=== PATIENT | male | born 1985 | race Caucasian/White ===

== ENCOUNTER → 2018-08-26 10:25 | Outpatient (CLI) | payer OTHER, SELFPAY ==
[2015-09-07 11:29] VITALS: BMI 15.7
--- NOTE | 2018-08-26 10:35 | RAD_ITS ---
STUDY: X-RAY CHEST REASON FOR EXAM: Male, 33 years old. History of right lung infection. Prior surgery in the right hemithorax. TECHNIQUE: PA and lateral views of the chest. COMPARISON: Comparison is made with prior examination dated August 08, 2017. FINDINGS: Stable pleural parenchymal changes in the right hemithorax with evidence of a small right pleural effusion with underlying infiltration and/or atelectasis. Surgical sutures are seen within the right midlung. Stable deformity of the right third rib. The left lung is clear. Normal size heart. Normal mediastinum and alice. Normal visualized pulmonary arteries. Normal visualized aortic arch and descending thoracic aorta. Normal visualized thoracic spine. Normal visualized ribs, clavicles, and shoulders. There is no demonstrated abnormality of the visualized soft tissue structures of the upper abdomen. RAD/Chest PA and Lateral IMPRESSION: Stable pleural-parenchymal changes in the right hemithorax. Electronically Signed: Arnie Sol MD at 11:16 EST Tel [phone], Service support ,
== END ==
PROVIDERS: Family Provider Internal Medicine; PCP Internal Medicine; Referring Provider Nurse Practitioner; Visit Provider Nurse Practitioner
DX: R94.2 Abnormal results of pulmonary function studies (principal)
CPT/HCPCS: 71046

== ENCOUNTER → 2018-09-16 07:46 | Outpatient (CLI) | payer OTHER, SELFPAY ==
--- NOTE | 2018-09-16 16:11 | SPIR ---
Spirometry PFT Testing Spirometry PFT Testing: COMPLETE PULMONARY FUNCTION TEST INTERPRETATION Brief HPI: Patient is a 33 year old male, currently under the care of Tracy Bean, who presents to [facility] for complete pulmonary function tests secondary to diagnosis of history of empyema. Respiratory therapist reports good effort and reproducible results. Interpretation: Forced expiration spirometry shows a severe large airways obstructive ventilatory defect with an FEV1 of 50% predicted. There is no significant bronchodilator response by strict ATS criteria. Spirograms are of good quality and plateau slowly, indicating slowly emptying areas of the lungs. The respiratory flow volume loop shows decreased expiratory flow rates at high lung volumes consistent with small airways obstruction. Compared to previous pulmonary function tests from 04/15/2012, there has been a significant reduction in FVC and FEV1 by 26% and 47% respectively. Impression: Restriction cannot be excluded. Consider repeat testing with lung volumes. Severe obstructive ventilatory defect noted, but improvement did not reach clinical significance by ATS criteria.
--- OUTSIDE RECORDS SUMMARY | 2018-11-02 05:46 | XMS RPT_ITS | Continuity of Care Document ---
:1985 Author Organization [facility] Address [address] [place] [address] Phone Care Team Providers Name Role Phone Jacqueline Ramirez DO Unavailable [place] HOME CARE SPECIALIST, Tracy Ward Unavailable Yarelis Rao Unavailable Unavailable McJOHANNA Unavailable Unavailable Slarb COLLAR CUTTER, Yaima Unavailable Unavailable Long COLLAR CUTTER, Erum L Unavailable Unavailable Unavailable Unavailable Problems Name Dates Details Abnormal chest xray (R93.89, 793.2) Comments: chest xray reveal complete opacificataion of right hemithorax suggestive of pleural effusion, coarse and increased markings in right upper lobe with areas of confluence, TB should be ruled out Status: Active 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 meds working well. his manager etl comment that notice difference in work performance for the good. ntoice more focus on one thing and nto scattered. 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 will treat wtih stimulant may be cause of his mood disorfder once doign well on ADD med may wa nt to try comign off. only a year. talk about side effects watch for irritatbility anget upset. stimlant side effects in beginning weight loss Status: Active BMI 22.0-22.9, adult (Z68.22, V85.1) Status: Active BMI between 19-24,adult (V85.1) Status: Active Cough (R05, 786.2) Status: Active Current nonsmoker (Renamed from Current non-smoker) (Z78.9, V49.89) Status: Active Depression, recurrent (F33.9, 296.30) Comments: stable on celexa Status: Active Encounter for screening for lipid disorder (Z13.220, V77.91) Status: Active History of empyema of pleura (Z87.09, V12.69) Comments: Had chest tube on rt side, affected lung and rib, hospitalized Summ2014 Status: Active History of lung abscess (Z87.09, V12.69) Comments: will xray today, had 27 days of ceftriaxone a year ago, will treat agressively today, check chest, return 2 weeks and consider pneumonia shot at that time per ID recommendationWith S Intermedius, strep veridans Rt lower lung with thoracic surgery by [facility] Dr. 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 Jackson in [facility]. Status: Active Vitamin D deficiency (E55.9, 268.9) Status: Active Medications Name Dates Details Adderall XR 20 MG Oral Capsule Extended Release 24 Hour 1 (one) Capsule bid for 0 days Quantity: 60 {Capsule} Refills: 0 Ordered:12-Aug-2018 Rashmi Boykin MD Start : 12-Aug-2018 Active Comments:sixty DX: R41.840 CeleXA 20 MG Oral Tablet 1 (one) Tablet qhs for 0 days Quantity: 30 {Tablet} Refills: 6 Ordered:27-Mar-2018 Tara Ramirez DO, DO, Kathleen Start : 27-Mar-2018 Active ZyrTEC Allergy 10 MG Oral Tablet 1 (one) Tablet Tablet daily for 0 days Quantity: 30 {Tablet} Refills: 0 Ordered:14-Jul-2018 Yarelis Rao Start : 11-Jul-2018 Active Adderall XR 15 MG Oral Capsule Extended Release 24 Hour 1 (one) Capsule in am and around 3 pm for 0 days Quantity: 60 {Capsule} Refills: 0 Ordered:22-Jul-2018 Rashmi Boykin MD Start : 22-Jul-2018 End : 22-Jul-2018 Inactive Comments:sixtyincreased to 20mg bid Bromfed DM 30-2-10 MG/5ML Oral Syrup 10 Milliliter Milliliter [id number] cough for 0 days Quantity: 120 {Milliliter} Refills: 0 Ordered:08-Aug-2017 Doris Braxton LPN Start : 21-Sep-2016 End : 08-Aug-2017 Inactive Cefdinir 300 MG Oral Capsule 1 (one) Capsule Capsule q12 for 10 days Quantity: 20 {Capsule} Refills: 0 Ordered:21-Sep-2016 Tracy Bean CNP Start : 21-Sep-2016 End : 01-Oct-2016 Inactive Deplin 15 15-90.314 MG Oral Capsule 1 (one) Capsule qd for 0 days Quantity: 90 {Capsule} Refills: 0 Ordered:21-Sep-2016 Yarelis Rao Start : 06-Jul-2016 End : 21-Sep-2016 Inactive Deplin 15 15-90.314 MG Oral Capsule 1 (one) Capsule qd for 0 days Quantity: 90 {Capsule} Refills: 0 Ordered:21-Sep-2016 Yarelis Rao Start : 06-Jul-2016 End : 21-Sep-2016 Inactive Doxycycline Hyclate 100 MG Oral Capsule 1 (one) Capsule bid for 7 days Quantity: 14 {Capsule} Refills: 0 Ordered:25-Sep-2016 Tracy Bean CNP Start : 25-Sep-2016 End : 02-Oct-2016 Inactive LEVAQUIN, 500MG (Oral Tablet) 1 (one) Tablet daily for 0 days Quantity: 10 {Tablet} Refills: 0 Ordered:07-Sep-2015 JOHANNA Bentley Start : 25-Aug-2015 End : 07-Sep-2015 Inactive Nasonex 50 MCG/ACT Nasal Suspension 1 (one) Suspension Suspension qd for 0 days Quantity: 1 {Container} Refills: 0 Ordered:06-Jul-2016 Doris Braxton LPN Start : 12-Apr-2016 End : 06-Jul-2016 Inactive No Known Historical Medications Percocet 5-325 MG Oral Tablet 1-2 tabs tablet q 6hrs, prn for 30 days Quantity: 60 {Tablet} Refills: 0 Ordered:12-Apr-2016 Doris Braxton LPN Start : 26-Sep-2015 End : 12-Apr-2016 Inactive PREDNISONE, 10MG (Oral Tablet) 2 pills for 4 days Tablet Tablet then 1 pill for 4 days with food in am for 0 days Quantity: 12 {QS} Refills: 0 Ordered:07-Sep-2015 JOHANNA Bentley Start : 15-Apr-2015 End : 07-Sep-2015 Inactive Comments:with food ProAir HFA 108 (90 Base) MCG/ACT Inhalation Aerosol Solution 2 (two) Aerosol Soln tid prn for 0 days Quantity: 1 {Inhaler} Refills: 0 Ordered:12-Apr-2016 Doris Braxton LPN Start : 25-Aug-2015 End : 12-Apr-2016 Inactive ZITHROMAX Z-MELANY, 250MG (Oral Tablet) 1 Tablet Tablet TAD for 0 days Quantity: 1 {Package} Refills: 0 Ordered:07-Sep-2015 JOHANNA Bentley Start : 15-Apr-2015 End : 07-Sep-2015 Inactive ADVAIR DISKUS, 250-50MCG/DOSE (Inhalation Aerosol Powder Breath Activated) 1 Aero Pow Br Act puff bid then rinse out mouth for 0 days Quantity: 1 {Aero_Pow_Br_Act} Refills: 1 Ordered:15-Apr-2015 Leatha Fernandez LPN Start : 26-Feb-2012 End : 15-Apr-2015 Discontinued PredniSONE 10 MG (21) Oral Tablet Therapy Pack 1 (one) Tab Ther Pack 1 bid x 3 days, then 1 daily x 3 days, then 1/2 x 3 days for 0 days Quantity: 11 {Tablet} Refills: 0 Ordered:05-Oct-2016 Yaima Felton LPN Start : 25-Sep-2016 End : 05-Oct-2016 Discontinued Dispense as Written Comments:with food Allergies and Adverse Reactions Name Dates Details No Known Allergies (Allergy) Onset: 21-Sep-2016 Status: Active No Known Drug Allergies (Allergy) Onset: 28-Jan-2012 Status: Active Past Medical History Name Dates Details Asthma, intrinsic, with status asthmaticus (J45.902, 493.11) Status: Inactive as of 12-Apr-2016 Bronchitis (J40, 490) Status: Inactive as of 03-Oct-2015 Cerumen impaction (H61.20, 380.4) Status: Resolved as of 12-Feb-2012 Ceruminosis, bilateral (Renamed from Excessive cerumen in both ear canals) (H61.23, 380.4) Status: Inactive as of 03-Oct-2015 Cough (R05, 786.2) Comments: with history of Rt lung abcess with strep viridans 27 to days of IV Status: Inactive as of 08-Aug-2017 Cough (R05, 786.2) Comments: 30-year-old male with no past medical history presents with cough and sputum production for 1 month.Chest x-ray reveals complete opacification of the right hemithorax suggestive pleural effusion with un derlying pneumonic infiltration ? TB versus pneumonia.Spoke to 'glory Hargrove signs and she recommends sending the patient to the emergency room for evaluation and treatment of TB.Patient will get AFB sme ar and cultures and will be started on empiric treatment for TB at the hospital.Spoke to the ED and updated them. Status: Inactive as of 03-Oct-2015 Cough (R05, 786.2) Status: Resolved as of 31-May-2016 Hearing loss due to cerumen impaction, bilateral (H61.23, 389.8) Status: Inactive as of 08-Aug-2017 Pneumonia (J18.9, 486) Comments: seen on chest xray, as well as effusion resolving now, treated with cefdinir and then doxycycline, and steroid, will monitor pt agressively Status: Inactive as of 08-Aug-2017 Wheezing (R06.2, 786.07) Status: Inactive as of 03-Oct-2015 Procedures Date Value Details 08-Aug-2017 Chest PA and Lateral Result: Comments: See Note; NOTES: [facility] Imaging Services [address] [place] [address] Chest PA and Lateral MR#: [id number] Acct: [id number] Name: BROOKE PENN Rep #: [id number] : 1985 M 32 From: Nazario Cardona DO PCP: Jacqueline Ramirez DO Status: REG CLI Study: Chest PA and Lateral Date of Exam: 08/08/17 Exam# [id number] Ordering Dr: Jacqueline Ramirez DO STUDY: X-RAY CHEST REASON FOR EXAM: Male, 32 years old. Cough TECHNIQUE: Frontal and lateral views COMPARISON: October 22, 2016 FINDINGS: The lungs are not fully expanded. Postsurgi johnny changes in the right lung base. Stable right lung volume loss. There is persistent pleural thickening/effusion in the right lung base. Normal size heart. Normal mediastinum and alice. Normal visuali zed pulmonary arteries. Normal visualized aortic arch and descending thoracic aorta. Normal visualized thoracic spine. Normal visualized ribs, clavicles, and shoulders. There is no demonstrated abnorm ality of the visualized soft tissue structures of the upper abdomen. RAD/Chest PA and Lateral IMPRESSION: This is stable right base effusion/pleu ral thickening Electronically Signed: Nazario Cardona DO at 18:10 EDT Tel [phone], Service support , CC: Jacqueline Ramirez DO Geology Professor: Signed 22-Oct-2016 Chest PA and Lateral Result: Comments: See Note; NOTES: [facility] Imaging Services [address] [place] [address] [place] [address] Chest PA and Lateral MR#: [id number] Acct: [id number] Name: BROOKE PENN Rep #: [id number] : 1985 M 31 From: Arnie Sol MD PCP: Jacqueline Ramirez DO Status: REG CLI Study: Chest PA and Lateral Date of Exam: 10/22/16 Exam# [id number] Ordering Dr: Tracy Bean STUDY: X-RAY CHEST REASON FOR EXAM: Male, 31 years old. History of pneumonia. TECHNIQUE: PA and lateral views of the chest. COMPARISON: Comparison is made with prior study dated September 21, 2016. FINDINGS: Pectus excavatum deformity. Stable pleural parenchymal changes at the right lung base. There is evidence of a surgical intervention in the right lower lobe. Josefina l size heart. Normal mediastinum and alice. Normal visualized pulmonary arteries. Normal visualized aortic arch and descending thoracic aorta. Normal visualized thoracic spine. Once again, there is evid ence of deformity of the right second third and fourth ribs anteriorly most likely secondary to prior surgery. There is no demonstrated abnormality of the visualized soft tissue structures of the upper abdomen. RAD/Chest PA and Lateral IMPRESSION: Stable pleural parenchymal changes at the right lung base. Postoperative changes. The left lung is clear. Electronically Signed: Arnie Sol MD at 12:17 EST Tel [phone], Service support [phone], CC: Tracy Bean; Jacqueline Ramirez DO Geology Professor: Signed 21-Sep-2016 Chest PA and Lateral Result: Comments: See Note; NOTES: [facility] Imaging Services [address] [place] [address] [place] 4d Chest PA and Lateral MR#: [id number] Acct: [id number] Name: BROOKE PENN Ace Rep #: [id number] : 1985 M 31 From: Arnie Sol MD PCP: Jacqueline Ramirez DO Status: REG CLI Study: Chest PA and Lateral Date of Exam: 09/21/16 Exam# [id number] Ordering Dr: Tracy Bean STUDY: X-RAY CHEST REASON FOR EXAM: Male, 31 years old. The patient has a history of right lung abscess. TECHNIQUE: PA and lateral views of the chest. COMPARISON: Comparison is made with prior study dated 2014. FINDINGS: The previously seen right pleural effusion and infiltration in the right hemithorax has markedly improved. There now is evidence of a sma ll right pleural effusion with underlying right basilar infiltration. The left upper lobe is now clear. The left lung is clear. Normal size heart. Normal mediastinum and alice. Normal visualized pulmona ry arteries. Normal visualized aortic arch and descending thoracic aorta. Normal visualized thoracic spine. Normal visualized ribs, clavicles, and shoulders. There is no demonstrated abnormality of th e visualized soft tissue structures of the upper abdomen. RAD/Chest PA and Lateral IMPRESSION: Small residual right pleural effusion with underly ing infiltration. The left lung and right upper lobe are unremarkable. Electronically Signed: Arnie Sol MD at 9:36 EST Tel [phone], Service support [phone], Fax CC: Tracy Bean; Jacqueline Ramirez DO Geology Professor: Signed 12-Apr-2016 Spirometry (33832) Comments: roxann Result: 07-Sep-2015 Emergency Department Summary Result: Comments: See Note; NOTES: [facility] Medical Records Department [address] [place] [address] Emergency Department Summary MR#: [id number] Acct: [id number] Name: BROOKE PENN Ace Rep #: [id number] : 1985 30 From: Edgardo Arrington MD PCP: Rashmi Boykin MD Status: DEP ER DATE OF SERVICE: 09/07/2015 CHIEF COMPLAINT: Cough, shortness of breath, night swea ts. HISTORY OF PRESENT ILLNESS: This is a 30-year-old gentleman with no significant past medical or surgical history who states for 1 month, he has not been feeling well. He saw his primary care riley macdonald about 2 weeks ago. He was treated with a course of Levaquin and got no better. Today, he was worse, went in to saw his primary care physician's office, was seen by Dr. Carlson, they obtained a est x-ray. He basically had a whiteout on his right chest. They send him in the ER for further evaluation for possible TB or other etiologies. PHYSICAL EXAMINATION: GENERAL: A 30-year-old gentleman. VITAL SIGNS: Stable. His sat is only 93% on room air. He is not truly hypoxic, but it is a relative hypoxia for young man that is a nonsmoker. Otherwise, he is afebrile. Temperature ____. He is in n o distress. HEENT: Unremarkable. NECK: Nontender. No JVD. LUNGS: Greatly diminished on the right and normal on the left. HEART: Tachycardic. No murmur. ABDOMEN: Soft, nontender, nondistended, no or ganomegaly or masses. EXTREMITIES: He moves all 4. Calves nontender, no edema, no cords. CHEST: His right chest wall is nontender. He has an abnormal chest wall with bony structure. He tells me that has been there since he was a small child. It is nontender. It is not red. There is no abscess. NEUROLOGICAL: He is awake and alert. No focal motor or sensory deficits. EMERGENCY DEPARTMENT COURSE: A 30-year-old gentleman with dyspnea, whiteout on chest x-ray done earlier today. Currently, a CBC, chemistry is pending. I did send blood cultures x2 and sputum cultures including TB cultures. His C AT scan of his chest showed a large right pleural cavity base cystic mass with chronic changes, 3rd and 4th ribs versus obstruction of the 3rd and 4th ribs and the radiologist has had rule out TB vers us other fungal etiologies versus other etiologies. IMPRESSION: 1. Large right lung, cystic mass of uncertain etiology. 2. Rule out tuberculosis. PLAN: I gave the patient options. I initially ca lled [facility] per his choice. They currently are out of beds, so I will talk to [facility] about a transfer. He was initially started on Rocephin and Zithromax. Labs and cultures are pending. MD Octavia Pina C: Rashmi Boykin MD T: NTS JOB: [id number] 09/07/15 4152 <Electronically signed by Edgardo Arrington MD> Date [facility] Signature (If Indicated): Date CC: Rashmi Boykin MD Date Dictated: 09/07/15 1352 D ate Transcribed: 09/07/152 Geology Professor: Signed 07-Sep-2015 Chest WITH Contrast Result: Comments: See Note; NOTES: [facility] Imaging Services [address] [place] [address] [address]d Chest WITH Contrast MR#: [id number] Acct: [id number] Name: DAVID PENN Rep #: [id number] : 1985 30 From: Arnie Sol MD PCP: Rashmi Boykin MD Status: REG ER Study: Chest WITH Contrast Date of Exam: 09/07/15 Exam# [id number] Ordering Dr: Jose Arrington MD STUDY: CT CHEST WITH CONTRAST REASON FOR EXAM: Male, 30 years old. Opacification of the right hemithorax. RADIATION DOSAGE (If Supplied By Facility): CTDIvol = ( 15.13 ) mGy, DLP = ( 686.90 ) mGycm TECHNIQUE: Transaxial imaging was performed following intravenous administration of 75ML ml of Isovue 300 contrast material. Multiplanar coronal and sagittal images were reformatted. COMPARISON: Comparison is made with prior chest radiograph done earlier in the day. FINDINGS: There is evidence of inhomogeneous infiltration in the right upp er lobe worse along the peripheral aspect with cystic spaces within it. There is evidence of a 13.1 cm x 14.4 cm x 20.8 cm fluid collection in the right lung in its mid and inferior portion. The rim is seen around this fluid collection. There is a tiny right pleural effusion. The fluid within as a higher attenuation coefficient and this is suggestive of infected fluid. There is shift of the hear t and mediastinal structures towards the left side of the midline. Mild degree of increased markings are also seen in the posterior aspect of the left upper lobe. Normal heart and pericardium. Nor mal mediastinum. Normal hilar regions. Normal enhanced pulmonary arteries. Normal aorta arch and descending thoracic aorta. There is destruction of the anterior aspect of the right third and fourth ribs. There is also evidence of a pectus excavatum deformity. A chronic process such as TB or fungal infection should be ruled out. Is also evidence of a 3 cm x 3 cm soft tissue density with bony dest ruction along the anterior chest wall in its midportion. There is evidence of thickening of the right pectoralis muscle. There is no demonstrated abnormality of the visualized upper abdomen. IMPRESSION: Large cystic mass in the right lung as described with inhomogeneous infiltration in the right upper lobe with destruction of the anterior aspect of the rig ht third and fourth ribs. An infectious process such as tuberculosis or a fungal infection should be ruled out. There is shift of the heart and mediastinal structures towards the left side of the mi dline. Electronically Signed: Arnie Sol MD at 13:25 EST Tel [phone], Service support [phone], CC: Rashmi Boykin MD; Edgardo Arrington MD Geology Professor: Signed 07-Sep-2015 Chest PA and Lateral Result: Comments: See Note; NOTES: [facility] Imaging Services [address] [place] [address] 4d Chest PA and Lateral MR#: [id number] Acct: [id number] Name: Milagros PENNLaurie R Rep #: [id number] : 1985 M 30 From: Arnie Sol MD PCP: Rashmi Boykin MD Status: REG CLI Study: Chest PA and Lateral Date of Exam: 09/07/15 Exam# [id number] Ordering Dr: Rashmi Boykin MD STUDY: X-RAY CHEST REASON FOR EXAM: Male, 30 years old. One-month history of cough and shortness of breath. TECHNIQUE: PA and lateral views of the chest. COMPARISON: None. FINDINGS: There is almost complete collapse of the right hemithorax with the coarse increased interstitial markings in the right upper lobe with areas of confluence. Fi ndings are suggestive of a large pleural effusion with underlying dense consolidation or mass lesion. Infectious process such as a pneumonic infiltration and possible tuberculosis should be ruled out. The left lung is clear. Normal size heart. Normal mediastinum and alice. Normal visualized pulmonary arteries. Normal visualized aortic arch and descending thoracic aorta. Normal visualized thora cic spine. Normal visualized ribs, clavicles, and shoulders. There is no demonstrated abnormality of the visualized soft tissue structures of the upper abdomen. IMPRESSION: There is almost complete opacification of the right hemithorax suggestive of a pleural effusion with underlying pneumonic infiltration. Coarse and increased markings in the right upper lobe with areas of confluence. Tuberculosis should be ruled out. Electronically Signed: Arnie Sol MD at 9:24 EST Tel [phone], Service support [phone], RAD/Chest PA and Lateral IMPRESSION: There is almost complete opacification of the right hemithorax suggestive of a pleural effusion with underlying pneumonic infiltration. Co arse and increased markings in the right upper lobe with areas of confluence. Tuberculosis should be ruled out. Electronically Signed: Arnie Sol MD at 9:24 EST Tel [phone] , Service support [phone], CC: Rashmi Boykin MD Geology Professor: Signed 25-Aug-2015 Spirometry (97976) Result: 25-Aug-2015 Spirometry (12510) Comments: see scanned document of test done to see results reviewed today with patient pt not able to coordinate Result: [Preliminary Information] Sensor Calibration Date: 01/24/2015; Sensor SN: [id number]; Pressure: 760; Temperature: 21.9625952281023 [Pre-Bronchodilator] FVC: 1.63735358395873; FEV (0.5 secs): 0.7262395367 76201; FEV (1.0 sec): 0.294847890540125; FEV (3.0 secs): 1.62398572306412; FEV (6.0 secs): 0; FEV (1.0 sec) / FVC: 68.3327822793160; FEV (3.0 secs) / FVC: 99.6680415151888; FEV (1.0 sec) / FEV (6.0 secs ): 0; FEF (25-75%): 0; FEF (75-85%): 0.27785407717911; PEF: 1.69995419843930; FEF (25%): 0; FEF (75%): 0.187577069438292; FEF (200-1200): 0; EXP TIME: 3.69999347226980; Best FVC: 1.7943548802639; Best F EV (1.0 sec): 0.676339074256979; V ext.: -0.522446103446616; FIVC: 0.161957537061846; FIV (0.5 sec): 0.031333505429664; FEV (0.5 secs) / FIV (0.5 secs): 77.5208440883332; FIF (50%): 2.4082343872080; FEF (50%) / FIF (50%): 26.8336294112855; MVV: 0; MTV: 0; RR: 0; MVV Time: 0; VC: 0; ERV: 0; ROXANA: 0; TV: 0; AT: 0; AT%: 0 [Post-Bronchodilator] FVC: 0; FEV (0.5 secs): 0; FEV (1.0 sec): 0; FEV (3.0 secs): 0 ; FEV (6.0 secs): 0; FEV (1.0 sec) / FVC: 0; FEV (3.0 secs) / FVC: 0; FEV (1.0 sec) / FEV (6.0 secs): 0; FEF (25-75%): 0; FEF (75-85%): 0; PEF: 0; FEF (25%): 0; FEF (75%): 0; FEF (200-1200): 0; EXP TIME : 0; Best FVC: 0; Best FEV (1.0 sec): 0; V ext.: 0; FIVC: 0; FIV (0.5 sec): 0; FEV (0.5 secs) / FIV (0.5 secs): 0; FIF (50%): 0; FEF (50%) / FIF (50%): 0; MVV: 0; MTV: 0; RR: 0; MVV Time: 0; VC: 0; ERV: 0; ROXANA: 0; TV: 0; AT: 0; AT%: 0 [Predicted Values] FVC: 0; FEV (0.5 secs): 0; FEV (1.0 sec): 0; FEV (3.0 secs): 0; FEV (6.0 secs): 0; FEV (1.0 sec) / FVC: 0; FEV (3.0 secs) / FVC: 0; FEV (1.0 sec) / FE V (6.0 secs): 0; FEF (25-75%): 0; FEF (75-85%): 0; PEF: 0; FEF (25%): 0; FEF (75%): 0; FEF (200-1200): 0; EXP TIME: 0; Best FVC: 0; Best FEV (1.0 sec): 0; V ext.: 0; FIVC: 0; FIV (0.5 sec): 0; FEV (0.5 secs) / FIV (0.5 secs): 0; FIF (50%): 0; FEF (50%) / FIF (50%): 0; MVV: 0; MTV: 0; RR: 0; MVV Time: 0; VC: 0; ERV: 0; ROXANA: 0; TV: 0; AT: 0; AT%: 0 [Spirometry Diagnostic Statements] Date of Test: 2014 07:36:00; Summary: Unable to perform automatic interpretation because: Predicted FEV1/FVC is not available or valid. Social History Name Dates Details No Caffeine Use Status: Active No Drug Use Status: Active Non Drinker/No Alcohol Use Status: Active Non Smoker/No Tobacco Use Status: Active Tobacco Use: Never smoker. Status: Active Smoking Status Name Dates Details Never smoker Vital Signs Date Test Result Details :36 Pulse 89 /min Comments: Pattern: Regular Respiration Rate 16 /min Comments: Pattern: Unlabored O2 SAT 98 % Comments: Room air BP Systolic 122 mm[Hg] Comments: Patient Position: Sitting; Cuff Location: Left Arm; Cuff Size: Standard BP Diastolic 78 mm[Hg] Comments: Patient Position: Sitting; Cuff Location: Left Arm; Cuff Size: Standard Weight 169 lb Height 73 in Body Mass Index Calculated 22.3 kg/m2 Body Surface Area Calculated 2 m2 [id number] Temperature 98.8 f Comments: Method: Temporal Pulse 74 /min Comments: Pattern: Regular Respiration Rate 16 /min Comments: Pattern: Unlabored O2 SAT 98 % Comments: Room air BP Systolic 112 mm[Hg] Comments: Patient Position: Sitting; Cuff Location: Left Arm; Cuff Size: Standard BP Diastolic 70 mm[Hg] Comments: Patient Position: Sitting; Cuff Location: Left Arm; Cuff Size: Standard Weight 171.5 lb Height 73 in Body Mass Index Calculated 22.63 kg/m2 Body Surface Area Calculated 2.02 m2 :51 Temperature 98.4 f Comments: Method: Temporal Pulse 74 /min Comments: Pattern: Regular Respiration Rate 16 /min Comments: Pattern: Unlabored O2 SAT 98 % Comments: Room air BP Systolic 118 mm[Hg] Comments: Patient Position: Sitting; Cuff Location: Left Arm; Cuff Size: Standard BP Diastolic 74 mm[Hg] Comments: Patient Position: Sitting; Cuff Location: Left Arm; Cuff Size: Standard Weight 171.5 lb Height 73 in Body Mass Index Calculated 22.63 kg/m2 Body Surface Area Calculated 2.02 m2 :56 Temperature 97 f Comments: Method: Temporal Pulse 86 /min Comments: Pattern: Regular Respiration Rate 16 /min Comments: Pattern: Unlabored O2 SAT 99 % Comments: Room air BP Systolic 128 mm[Hg] Comments: Patient Position: Sitting; Cuff Location: Left Arm; Cuff Size: Large BP Diastolic 86 mm[Hg] Comments: Patient Position: Sitting; Cuff Location: Left Arm; Cuff Size: Large Weight 184.5 lb Height 73 in Body Mass Index Calculated 24.34 kg/m2 Body Surface Area Calculated 2.08 m2 :52 Temperature 97.9 f Pulse 76 /min Comments: Pattern: Regular Respiration Rate 16 /min Comments: Pattern: Unlabored O2 SAT 97 % Comments: Room air BP Systolic 118 mm[Hg] Comments: Patient Position: Sitting; Cuff Location: Left Arm; Cuff Size: Standard BP Diastolic 74 mm[Hg] Comments: Patient Position: Sitting; Cuff Location: Left Arm; Cuff Size: Standard Weight 171 lb Height 73 in Body Mass Index Calculated 22.56 kg/m2 Body Surface Area Calculated 2.01 m2 :38 Temperature 98.1 f Pulse 72 /min Comments: Pattern: Regular Respiration Rate 17 /min Comments: Pattern: Unlabored O2 SAT 98 % Comments: Room air BP Systolic 122 mm[Hg] Comments: Patient Position: Sitting; Cuff Location: Left Arm; Cuff Size: Standard BP Diastolic 80 mm[Hg] Comments: Patient Position: Sitting; Cuff Location: Left Arm; Cuff Size: Standard Weight 171 lb Height 73 in Body Mass Index Calculated 22.56 kg/m2 Body Surface Area Calculated 2.01 m2 :47 Temperature 98.6 f Comments: Method: Temporal Pulse 75 /min Comments: Pattern: Regular Respiration Rate 16 /min Comments: Pattern: Unlabored O2 SAT 98 % Comments: Room air BP Systolic 120 mm[Hg] Comments: Patient Position: Sitting; Cuff Location: Left Arm; Cuff Size: Standard BP Diastolic 70 mm[Hg] Comments: Patient Position: Sitting; Cuff Location: Left Arm; Cuff Size: Standard Weight 169 lb Height 73 in Body Mass Index Calculated 22.3 kg/m2 Body Surface Area Calculated 2 m2 :15 Pulse 72 /min Comments: Pattern: Regular Respiration Rate 18 /min Comments: Pattern: Unlabored O2 SAT 98 % Comments: Room air BP Systolic 122 mm[Hg] Comments: Patient Position: Sitting; Cuff Location: Left Arm; Cuff Size: Standard BP Diastolic 64 mm[Hg] Comments: Patient Position: Sitting; Cuff Location: Left Arm; Cuff Size: Standard Weight 169 lb Height 73 in Body Mass Index Calculated 22.3 kg/m2 Body Surface Area Calculated 2 m2 :05 Pulse 76 /min Comments: Pattern: Regular Respiration Rate 18 /min Comments: Pattern: Unlabored O2 SAT 98 % Comments: Room air BP Systolic 116 mm[Hg] Comments: Patient Position: Sitting; Cuff Location: Left Arm; Cuff Size: Standard BP Diastolic 62 mm[Hg] Comments: Patient Position: Sitting; Cuff Location: Left Arm; Cuff Size: Standard Weight 164.5 lb Height 73 in Body Mass Index Calculated 21.7 kg/m2 Body Surface Area Calculated 1.98 m2 :07 Temperature 98.1 f Comments: Method: Temporal Pulse 77 /min Comments: Pattern: Regular Respiration Rate 18 /min Comments: Pattern: Unlabored O2 SAT 98 % Comments: Room air BP Systolic 122 mm[Hg] Comments: Patient Position: Sitting; Cuff Location: Left Arm; Cuff Size: Large BP Diastolic 80 mm[Hg] Comments: Patient Position: Sitting; Cuff Location: Left Arm; Cuff Size: Large Weight 155 lb Height 73 in Body Mass Index Calculated 20.45 kg/m2 Body Surface Area Calculated 1.93 m2 :02 Temperature 97.8 f Comments: Method: Temporal Pulse 88 /min Comments: Pattern: Regular Respiration Rate 18 /min Comments: Pattern: Unlabored O2 SAT 98 % Comments: Room air BP Systolic 100 mm[Hg] Comments: Patient Position: Sitting; Cuff Location: Left Arm; Cuff Size: Standard BP Diastolic 74 mm[Hg] Comments: Patient Position: Sitting; Cuff Location: Left Arm; Cuff Size: Standard Weight 155 lb Height 73 in Body Mass Index Calculated 20.45 kg/m2 Body Surface Area Calculated 1.93 m2 :40 Temperature 97.6 f Comments: Method: Temporal Pulse 118 /min Comments: Pattern: Regular Respiration Rate 26 /min Comments: Pattern: Labored O2 SAT 96 % Comments: Room air BP Systolic 114 mm[Hg] Comments: Patient Position: Sitting; Cuff Location: Left Arm; Cuff Size: Standard BP Diastolic 74 mm[Hg] Comments: Patient Position: Sitting; Cuff Location: Left Arm; Cuff Size: Standard Weight 155 lb Height 73 in Body Mass Index Calculated 20.45 kg/m2 Body Surface Area Calculated 1.93 m2 :26 Temperature 99.2 f Comments: Method: Temporal Pulse 142 /min Comments: Pattern: Regular Respiration Rate 18 /min Comments: Pattern: Unlabored O2 SAT 95 % Comments: Room air BP Systolic 116 mm[Hg] Comments: Patient Position: Sitting; Cuff Location: Left Arm; Cuff Size: Standard BP Diastolic 74 mm[Hg] Comments: Patient Position: Sitting; Cuff Location: Left Arm; Cuff Size: Standard Weight 155 lb Height 73 in Body Mass Index Calculated 20.45 kg/m2 Body Surface Area Calculated 1.93 m2 :19 Temperature 98.6 f Comments: Method: Oral Pulse 94 /min Comments: Pattern: Regular Respiration Rate 16 /min O2 SAT 98 % Comments: Room air BP Systolic 112 mm[Hg] Comments: Patient Position: Sitting; Cuff Location: Left Arm; Cuff Size: Standard BP Diastolic 70 mm[Hg] Comments: Patient Position: Sitting; Cuff Location: Left Arm; Cuff Size: Standard Weight 155 lb Height 73 in Body Mass Index Calculated 20.45 kg/m2 Body Surface Area Calculated 1.93 m2 :34 Temperature 98.4 f Comments: Method: Oral Pulse 96 /min Comments: Pattern: Regular Respiration Rate 16 /min Comments: Pattern: Unlabored O2 SAT 98 % Comments: Room air BP Systolic 118 mm[Hg] Comments: Patient Position: Sitting; Cuff Location: Left Arm; Cuff Size: Standard BP Diastolic 64 mm[Hg] Comments: Patient Position: Sitting; Cuff Location: Left Arm; Cuff Size: Standard Weight 155 lb Height 73 in Body Mass Index Calculated 20.45 kg/m2 Body Surface Area Calculated 1.93 m2 :38 Temperature 97.1 f Pulse 96 /min Comments: Pattern: Regular Respiration Rate 16 /min Comments: Pattern: Unlabored O2 SAT 98 % Comments: Room air BP Systolic 110 mm[Hg] Comments: Patient Position: Sitting; Cuff Location: Left Arm; Cuff Size: Standard BP Diastolic 82 mm[Hg] Comments: Patient Position: Sitting; Cuff Location: Left Arm; Cuff Size: Standard Weight 151 lb Height 73 in Body Mass Index Calculated 19.92 kg/m2 Body Surface Area Calculated 1.91 m2 :33 Temperature 97.9 f Comments: Method: Oral Pulse 99 /min Comments: Pattern: Regular Respiration Rate 18 /min O2 SAT 100 % Comments: Room air BP Systolic 130 mm[Hg] Comments: Patient Position: Sitting; Cuff Location: Left Arm; Cuff Size: Standard BP Diastolic 80 mm[Hg] Comments: Patient Position: Sitting; Cuff Location: Left Arm; Cuff Size: Standard Weight 151.4375 lb Height 73 in Body Mass Index Calculated 19.98 kg/m2 Body Surface Area Calculated 1.91 m2 Results Date Description Value Details :34 CBC, Platelets & Auto Diff Comments: PATIENT NOT FASTINGPERFORMED BY: [facility] [id number] ([id number]) Immature Grans (Abs) 0.0 {x10E3/uL} (Normal) Range: 0.0-0.1 Immature Granulocytes 0 % (Normal) Baso (Absolute) 0.0 {x10E3/uL} (Normal) Range: 0.0-0.2 Eos (Absolute) 0.1 {x10E3/uL} (Normal) Range: 0.0-0.4 Monocytes(Absolute) 0.5 {x10E3/uL} (Normal) Range: 0.1-0.9 Lymphs (Absolute) 1.5 {x10E3/uL} (Normal) Range: 0.7-3.1 Neutrophils (Absolute) 4.7 {x10E3/uL} (Normal) Range: 1.4-7.0 Basos 0 % (Normal) Eos 1 % (Normal) Monocytes 8 % (Normal) Lymphs 22 % (Normal) Neutrophils 69 % (Normal) Platelets 252 {x10E3/uL} (Normal) Range: 150-379 RDW 13.7 % (Normal) Range: 12.3-15.4 MCHC 34.3 g/dL (Normal) Range: 31.5-35.7 MCH 31.6 pg (Normal) Range: 26.6-33.0 MCV 92 fL (Normal) Range: 79-97 Hematocrit 44.0 % (Normal) Range: 37.5-51.0 Hemoglobin 15.1 g/dL (Normal) Range: 13.0-17.7 RBC 4.78 {x10E6/uL} (Normal) Range: 4.14-5.80 WBC 6.8 {x10E3/uL} (Normal) Range: 3.4-10.8 :34 CALCIFEDIOL ([id number]) Comments: PATIENT NOT FASTINGPERFORMED BY: [id number] [facility] [id number] Vitamin D, 25-Hydroxy 15.4 ng/mL (Abnormal) Range: 30.0-100.0 Comments: Vitamin D deficiency has been defined by the [employer] and an Endocrine Society practice guideline as alevel of serum 25-OH vitamin D less than 20 ng/mL (1,2).The Endocrine Society went on to further define vitamin Dinsufficiency as a level between 21 and 29 ng/mL (2).1. IOM ([employer]). 2010. Dietary reference intakes for calcium and D. [place]: The National Academies Press.2. Megan MF, Arsenio LOVETT, Remy LOVING, et al. Evaluation, treatment, and prevention of vitamin D deficiency: an Endocrine Society clinical practice guideline. JCEM. 2010; 96(7):1911-30. :34 VITAMIN B12 AND FOLATES Comments: PATIENT NOT FASTINGPERFORMED BY: [facility] [id number] [facility] [id number] ([id number]) Folate (Folic Acid), Serum 6.0 ng/mL (Normal) Comments: A serum folate concentration of less than 3.1 ng/mL isconsidered to represent clinical deficiency. Vitamin B12 444 pg/mL (Normal) Range: 232-1245 :34 Metabolic Panel, Comprehensive Comments: PATIENT NOT FASTINGPERFORMED BY: [facility] [id number] [facility] [id number] ([id number]) ALT (SGPT) 11 [iU]/L (Normal) Range: 0-44 AST (SGOT) 16 [iU]/L (Normal) Range: 0-40 Alkaline Phosphatase 54 [iU]/L (Normal) Range: 39-117 Bilirubin, Total 0.3 mg/dL (Normal) Range: 0.0-1.2 A/G Ratio 1.8 (Normal) Range: 1.2-2.2 Globulin, Total 2.5 g/dL (Normal) Range: 1.5-4.5 Albumin 4.4 g/dL (Normal) Range: 3.5-5.5 Protein, Total 6.9 g/dL (Normal) Range: 6.0-8.5 Calcium 9.7 mg/dL (Normal) Range: 8.7-10.2 Carbon Dioxide, Total 22 mmol/L (Normal) Range: 20-29 Chloride 105 mmol/L (Normal) Range: 96-106 Potassium 4.7 mmol/L (Normal) Range: 3.5-5.2 Sodium 143 mmol/L (Normal) Range: 134-144 BUN/Creatinine Ratio 25 (Abnormal) Range: 9-20 eGFR If Africn Am 133 mL/min/1.73 (Normal) eGFR If NonAfricn Am 115 mL/min/1.73 (Normal) Creatinine 0.89 mg/dL (Normal) Range: 0.76-1.27 BUN 22 mg/dL (Abnormal) Range: 6-20 Glucose 74 mg/dL (Normal) Range: 65-99 :34 TSH (THYROID STIMULATING Comments: PATIENT NOT FASTINGPERFORMED BY: [facility] [id number] HORMONE) ([id number]) TSH 2.580 {uIU/mL} (Normal) Range: 0.450-4.500 :10 LIPID PANEL (05295) Comments: PATIENT WAS FASTINGPERFORMED BY: [facility] [id number] LDL/HDL Ratio 2.2 {ratio_units} (Normal) Range: 0.0-3.6 Comments: LDL/HDL Ratio Men Women 1/2 Avg.Risk 1.0 1.5 Av g.Risk 3.6 3.2 2X Avg.Risk 6.2 5.0 3X Avg.Risk 8.0 6.1 LDL Cholesterol Calc 96 mg/dL (Normal) Range: 0-99 VLDL Cholesterol Johnny 14 mg/dL (Normal) Range: 5-40 HDL Cholesterol 43 mg/dL (Normal) Triglycerides 71 mg/dL (Normal) Range: 0-149 Cholesterol, Total 153 mg/dL (Normal) Range: 100-199 :38 TSH (55144) Comments: PATIENT NOT FASTINGPERFORMED BY: [facility] [id number] Information: [id number] TSH 2.480 {uIU/mL} (Normal) Range: 0.450-4.500 6-Azm-940382:23 AFB Stain AND Cytology Comments: [facility] [id number] [place], [address] ACID FAST STAIN SEE PATHOLOGY REPORT (Normal) Comments: Specimen submitted to Anatomical Pathology Department fortesting. CYTOLOGY,BF/CSF SEE PATHOLOGY REPORT (Normal) Comments: Specimen submitted to Anatomical Pathology Department fortesting. 9-Enp-031607:22 Basic Metabolic Profile (BMP) Comments: [facility] [address] [place], [address] GAP 7 (Normal) Range: 5-15 CO2 26.0 mmol/L (Normal) Range: 21.0-32.0 CL 102 mmol/L (Normal) Range: 98-107 K 3.7 mmol/L (Normal) Range: 3.5-5.1 NA 135 mmol/L (Abnormal) Range: 136-145 CA 8.7 mg/dL (Normal) Range: 8.5-10.1 BUN/CRE 20.1 {RATIO} (Abnormal) Range: 10-20 Estimated CRCL 182.28 ml/min (Normal) EST GFR - AA 207 mL/min (Normal) Comments: GFR Calc EST GFR 171 mL/min (Normal) Comments: Non- GFR Calc CREAT,SERUM 0.60 mg/dL (Abnormal) Range: 0.70-1.30 Comments: The validity of the calculated GFR AND GFRAA in patients over70 years has not been determined. Clinical correlation isessential. BUN 12 mg/dL (Normal) Range: 7-18 GLU 90 mg/dL (Normal) Range: 70-110 3-Nqh-855411:22 Liver Profile Comments: [facility] [id number] [place], [address] D BILI 0.11 mg/dL (Normal) Range: 0.00-0.30 T BILI 0.40 mg/dL (Normal) Range: 0.20-1.00 ALT 17 U/L (Normal) Range: 12-78 ALK P 102 U/L (Normal) Range: 50-136 AST 9 U/L (Abnormal) Range: 15-37 GLOB 4.5 g/dL (Abnormal) Range: 2.3-3.5 ALB 2.3 g/dL (Abnormal) Range: 3.4-5.0 T PROT 6.8 g/dL (Normal) Range: 6.4-8.2 5-Rqr-[id number]:10 CHEST, PA AND LATERAL Comments: appt 02/26/12 Radiology Report See Note (Normal) Comments: PROCEDURE: X-RAY CHEST REASON FOR EXAM: Male, 26 years old. Wheezing, shortness of breath andcough. TECHNIQUE: PA and lateral views of the chest. COMPARISON: None. FINDINGS: The lungs are hyper expanded, with flattening of the hemidiaphragms.Thereis no demonstrated parenchymal abnormality. There is evidence ofcalcifiedold granulomatous disease. There is no demonstrated pleural abnormality. Normal heart and pericardium. Normal mediastinum and alice. Normal visualized pulmonary arteries.Normalvisualized aortic arch and descending thoracic aorta. Normal visualized thoracic spine. There is d eformity of the anterioraspect of the right second and third ribs. There is evidence of a pectusexcavatum deformity. There is no demonstrated abnormality of the visualized soft tissuestructures of the upper abdomen. IMPRESSION:Hyperinflation. No acute abnormality is seen.There is evidence of deformity of the anterior aspect of the right secondand third ribs. Signed:Arnie Sol M.D.February 12, 2 012 at 12:36:05 PM EDTElectronically Signed GP/GP Professional Interpretation Provided By: [facility], , To consult with a radiologist regardi ng this report, please call our [id number] line @ Dictated on 02/12/12 1503 by Agus Sol MDscribed on 02/13/12 1240 by ITS IMPORTSign by Arnie Sol MD on 2 1240 Sign by: Arnie Sol MD Plan of Care Name Dates Details Instructions ADD (attention deficit disorder) without hyperactivity : Eprescribed prescriptions (G8553) 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 Attention disturbance : Eprescribed prescriptions (G8553) Indication: Attention disturbance History of empyema of pleura : Follow up - Make appt with Dr. Boykin for ADD med and evaluation Indication: History of empyema of pleura Current nonsmoker (Renamed from Current non-smoker) : Eprescribed prescriptions (G8553) Indication: Current nonsmoker (Renamed from Current non-smoker) BMI between 19-24,adult : Follow up if no improvement or if symptoms worsen Indication: BMI between 19-24,adult Pneumonia : Reviewed Diagnostic Tests Indication: Pneumonia Pneumonia : Reviewed Lab Indication: Pneumonia Pneumonia : Eprescribed prescriptions (G8553) Indication: Pneumonia BMI between 19-24,adult : Follow up if no improvement or if symptoms worsen Indication: BMI between 19-24,adult Pneumonia : *Antibiotic Usage Education - Male Indication: Pneumonia Cough : Eprescribed prescriptions (G8553) Indication: Cough Neurofibromatosis : Follow up in 2 weeks Indication: Neurofibromatosis Hearing loss due to cerumen impaction, bilateral : Follow up if no improvement or if symptoms worsen Indication: Hearing loss due to cerumen impaction, bilateral Cough : Cough Medicines, Nonprescription: cough Indication: Cough Cough : Eprescribed prescriptions (G8553) Indication: Cough Depression, recurrent : Continue Current Prescription(s) Indication: Depression, recurrent Depression, recurrent : Follow up in 1 month Indication: Depression, recurrent Depression, recurrent : Eprescribed prescriptions (G8553) Indication: Depression, recurrent Cough : Continue Current Prescription(s) Indication: Cough Cough : Follow up in 6 weeks- fu and gen med Indication: Cough Ceruminosis, bilateral (Renamed from Excessive cerumen in both ear canals) : Eprescribed prescriptions (G8553) Indication: Ceruminosis, bilateral (Renamed from Excessive cerumen in both ear canals) Cough : Eprescribed prescriptions (G8553) Indication: Cough Cough : Follow up if no improvement or if symptoms worsen Indication: Cough ALLERGIC RHINITIS DUE TO OTHER ALLERGEN : Allergy proofing Indication: ALLERGIC RHINITIS DUE TO OTHER ALLERGEN ALLERGIC RHINITIS DUE TO OTHER ALLERGEN : Allergy control Indication: ALLERGIC RHINITIS DUE TO OTHER ALLERGEN ALLERGIC RHINITIS DUE TO OTHER ALLERGEN : *URI Symptoms Indication: ALLERGIC RHINITIS DUE TO OTHER ALLERGEN Planned Observations Drug Screen (7drug + Alcohol) (03382)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 On: 3-Uxt-620860:47 Request Drug screen, qualitative,multiple drug class other than Chromatographic method, each procedure (09630)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 On: 12-Aug-20188:48 Request Drug Screen (7drug + Alcohol) (13204)Indication: Attention disturbance On: 6-Ukg-382216:10 Request CALCIFEDIOL (66721)Indication: Vitamin D deficiency On: 14-Jul-20189:00 Request Planned Encounters Medical; 3 Month FU - On: 17-Nov-2018 8:30 [facility] Tracy Bean CNP Medical; ADD EST VISIT - On: 06-Feb-2019 7:00 [facility] Ashutosh BUENO, Rashmi Ruby Planned Procedures Flu Vaccine (Quadrivalent) On: 11-Jul-2018 Intent [id number]: Vikas CHRISTOPHER [place] Comments: Lot #[id number]-L dltd, IMDose prefilled syringegiven by:FRANCISCA Venegas reviewed and ABN signed Radiology - Chest- PA and On: 08-Aug-2017 Intent LatBy: Jacqueline Ramirez DO, DO, Kathleen Flu Vaccine (Quadrivalent) On: 08-Aug-2017 Intent [id number]: Jacqueline Ramirez DO Comments: Lot:[id number]/22Amt:0.5mlRoute:IMSite: L DltdGiven By: Milagros SALES signed Jacqueline Ramirez DO Radiology - ChestBy: Vikas CHRISTOPHER, On: 23-Oct-2016 Intent Tracy Ward Radiology - ChestBy: Vikas CHRISTOPHER, On: 21-Sep-2016 Intent [place] Comments: history of Rt lung abcess Wax CurettesBy: Vikas CHRISTOPHER Tracy On: 21-Sep-2016 Intent E Aerosol Treatment (53562)By: On: 21-Sep-2016 Intent Vikas CHRISTOPHER [place] Flu Vaccine (Quadrivalent) On: 06-Jul-2016 Intent [id number]: Jacqueline Ramirez DO Comments: Lot:[id number]:04/05/17Dose:0.5mLRoute:IMSite:L DltdGiven By:Inocente Ramirez DO, Jacqueline Wax [place] (83252)By: Jose Francisco On: 26-Sep-2015 Intent Yaima VU Ear Irrigation (34120)By: Danial On: 26-Sep-2015 Intent Lina FLORES A Comments: Large amount of wax removed from both earsdark yellow in colortolerated HORACE tobar Radiology - ChestBy: Maggiei On: 25-Aug-2015 Intent Rashmi BUENO Comments: A/P if not betgter in 2 weeks Spirometry (56746)By: Danial FLORES, On: 26-Feb-2012 Intent Lina A Comments: good effor tand curve mod obst Inhaler Demo (77218)By: Danial On: 26-Feb-2012 Intent Lina FLORES A PFT - CompleteBy: Danial FLORES, On: 26-Feb-2012 Intent Lina A Spirometry (02044)By: Danial FLORES, On: 12-Feb-2012 Intent Lina A Comments: good effort flat curve mod obst Radiology - Chest- PA and On: 12-Feb-2012 Intent LatBy: Danial FLORES Lina A Aerosol Treatment (86884)By: On: 12-Feb-2012 Intent Lina Barrow DO A Pulse Oximetry (52869)By: On: 12-Feb-2012 Intent Libertad Melchor Aerosol Treatment (69908)By: On: 28-Jan-2012 Intent Tracy Bean CNP Wax CurettesBy: Tracy Bean CNP On: 28-Jan-2012 Intent E Ear Irrigation (54103)By: On: 28-Jan-2012 Intent Tracy Bean CNP Instructions Name Dates Details ADD (attention deficit disorder) without hyperactivity : How to access health information online 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 ADD (attention deficit disorder) without hyperactivity : How to access health information online - Detail 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 ADD (attention deficit disorder) without hyperactivity : Patient Instructions 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 Attention disturbance : How to access health information online Indication: Attention disturbance Attention disturbance : How to access health information online - Detail Indication: Attention disturbance Attention disturbance : Patient Instructions Indication: Attention disturbance Current nonsmoker (Renamed from Current non-smoker) : How to access health information online Indication: Current nonsmoker (Renamed from Current non-smoker) Current nonsmoker (Renamed from Current non-smoker) : How to access health information online - Detail Indication: Current nonsmoker (Renamed from Current non-smoker) Current nonsmoker (Renamed from Current non-smoker) : Patient Instructions Indication: Current nonsmoker (Renamed from Current non-smoker) Pneumonia : How to access health information online Indication: Pneumonia Pneumonia : How to access health information online - Detail Indication: Pneumonia Pneumonia : Patient Instructions Indication: Pneumonia Cough : How to access health information online Indication: Cough Cough : How to access health information online - Detail Indication: Cough Cough : Patient Instructions Indication: Cough Cough : How to access health information online Indication: Cough Cough : How to access health information online - Detail Indication: Cough Cough : Patient Instructions Indication: Cough ALLERGIC RHINITIS DUE TO OTHER ALLERGEN : Patient Instructions Indication: ALLERGIC RHINITIS DUE TO OTHER ALLERGEN Ceruminosis, bilateral (Renamed from Excessive cerumen in both ear canals) : How to access health information online - Detail Indication: Ceruminosis, bilateral (Renamed from Excessive cerumen in both ear canals) Ceruminosis, bilateral (Renamed from Excessive cerumen in both ear canals) : How to access health information online Indication: Ceruminosis, bilateral (Renamed from Excessive cerumen in both ear canals) Ceruminosis, bilateral (Renamed from Excessive cerumen in both ear canals) : Patient Instructions Indication: Ceruminosis, bilateral (Renamed from Excessive cerumen in both ear canals) Cough : How to access health information online Indication: Cough Cough : How to access health information online - Detail Indication: Cough Cough : Patient Instructions Indication: Cough Encounters Lab Order On: 12-Aug-2018 13:46 Encounter Diagnosis: ADD (attention deficit disorder) without hyperactivity End: 12-Aug-2018 13:47 [facility] Office Visit On: 12-Aug-2018 8:35 Encounter Reason: ADHD Medication Check - Adult - The symptoms are described as improving.Encounter Diagnosis: BMI 22.0-22.9, adult, Current nonsmoker (Renamed from Current non-smoker), ADD (attention deficit disorder) without hyperactivity End: 12-Aug-2018 9:20 [facility] Phone Encounter On: 22-Jul-2018 15:58 Encounter Diagnosis: Attention disturbance End: 22-Jul-2018 16:00 [facility] Office Visit On: 14-Jul-2018 15:24 Encounter Reason: ADHD Initial Evaluation - Adult - Symptoms include poor work performance, poor school performance (trying to study for exam right now and making it difficult), short attention span, impulsive behavior, End: 14-Jul-2018 16:53 losing things and fidgeting (nail biting). Onset was year(s) ago. The symptoms are described as worsening.Encounter Diagnosis: BMI 22.0-22.9, adult, Attention disturbance [facility] Lab Order On: 14-Jul-2018 9:00 Encounter Diagnosis: Vitamin D deficiency End: 14-Jul-2018 9:01 [facility] Office Visit On: 11-Jul-2018 6:50 Encounter Reason: Follow up for chronic medical issues - The patient feels well with minor complaints (bit of a cough), has good energy level and is sleeping well. Patient has been compliant with instructions. Current me End: 11-Jul-2018 8:35 dication use: no side effects and compliant with dosing regimen. Patient sleeps 7 hours per night. Nutrition: balanced diet and no supplemental vitamins & iron. The medical issues the patient is fol lowing up for include All identified problems below, depression and other., [ADDITIONAL REASON] Cough - Note for Cough : a little bit of cough , [ADDITIONAL REASON] Attention deficit - Feels attension deficit, easily distracted and difficulty f ocusing. Hard to study for CPA exam. Always had problems with focus. Did quick questionaire on line and seemed pos for ADD. Encounter Diagnosis: Current nonsmoker (Renamed from Current non-smoker), Need for prophylactic vaccination and inoculation against influenza (Renamed from Need for immunization against influenza), BMI 22.0-22.9, adult, Depression, recurrent, Attention disturbance, History of empyema of pleura, Neurofibromatosis, Cough [facility] Visit On: 08-Aug-2017 7:53 Encounter Reason: Follow up for chronic medical issues - The patient feels well with minor complaints (cough), has good energy level and is sleeping well. Patient has been compliant with instructions. Current medication End: 08-Aug-2017 8:13 use: no side effects and compliant with dosing regimen. Patient sleeps 7 hours per night. Nutrition: balanced diet and no supplemental vitamins & iron. The medical issues the patient is following up for include All identified problems below, depression and other.Encounter Diagnosis: Need for prophylactic vaccination and inoculation against influenza (Renamed from Need for immunization against influenza), BMI between 19-24,adult, Current nonsmoker (Renamed from Current non-smoker), Depression, recurrent, Cough, History of empyema of pleura, Encounter for screening for lipid disorder [facility] Office Visit On: 05-Oct-2016 6:38 Encounter Reason: Follow up acute care visit - The patient improving. Patient has been compliant with instructions. Current medication use: no side effects. The medical issues the patient is following up for include URI (pneumonia). End: 05-Oct-2016 10:21 Encounter Diagnosis: Pneumonia, Current nonsmoker (Renamed from Current non-smoker), BMI between 19-24,adult [facility] Office Visit On: 25-Sep-2016 7:29 Encounter Reason: Follow up acute care visit - The patient feels the same. Patient has been compliant with instructions. The medical issues the patient is following up for include other., End: 25-Sep-2016 9:09 [ADDITIONAL REASON] Follow up tests - Diagnostic tests include chest X-ray and other. Date: (09/07/16). Encounter Diagnosis: History of lung abscess, Cough, Current nonsmoker (Renamed from Current non-smoker), BMI between 19-24,adult, Pneumonia [facility] Visit On: 21-Sep-2016 7:43 Encounter Reason: Cough - Symptoms include cough, while symptoms do not include wheezing, chills or fever. The cough is described as productive (clear mucus). Cough onset was 1 week(s) ago. Symptoms are described as unch End: 21-Sep-2016 8:51 anged. Associated symptoms do not include headache. The patient is not currently being treated for this problem.Encounter Diagnosis: Cough, History of lung abscess, Hearing loss due to cerumen impaction, bilateral, Neurofibromatosis [facility] Office Visit On: 06-Jul-2016 7:14 Encounter Reason: Follow up Meds - The patient feels well with minor complaints, has good energy level and is sleeping well. Patient has been compliant with instructions. Current medication use: no side effects and compl End: 06-Jul-2016 12:50 iant with dosing regimen. Patient sleeps 7 hours per night. Nutrition: balanced diet.Encounter Diagnosis: Depression, recurrent, Need for prophylactic vaccination and inoculation against influenza (Renamed from Need for immunizati on against influenza) [facility] Visit On: 31-May-2016 8:03 Encounter Reason: Cough - No changes in management were made at the last visit. Symptoms include cough, wheezing and runny nose, while symptoms do not include chills, fever, stuffy nose or sore throat. The cough is descr End: 31-May-2016 8:37 ibed as hacking. Cough onset was sudden 1 month(s) ago. There is no known event that preceded symptom onset. The cough occurs constantly. Symptoms are described as moderate in severity., [ADDITIONAL REASON] Depression - Note for Depression: issues with anger and negative thoughts. They think anger is a mask for deeper issues Encounter Diagnosis: Cough, ALLERGIC RHINITIS DUE TO OTHER ALLERGEN, Depression, recurrent [facility] Visit On: 12-Apr-2016 7:04 Encounter Reason: Cough - No changes in management were made at the last visit. Symptoms include cough, wheezing and runny nose, while symptoms do not include chills, fever, stuffy nose or sore throat. The cough is descr End: 12-Apr-2016 18:52 ibed as hacking. Cough onset was sudden 1 month(s) ago. There is no known event that preceded symptom onset. The cough occurs constantly. Symptoms are described as moderate in severity.Encounter Diagnosis: ALLERGIC RHINITIS DUE TO OTHER ALLERGEN, Cough, Current nonsmoker (Renamed from Current non-smoker), Asthma, intrinsic, with status asthmaticus, History of empyema of pleura [facility] Office Visit On: 26-Sep-2015 16:57 Encounter Reason: Ceruminosis - Symptoms include ear fullness and hearing impairment, while symptoms do not include ear pain, tinnitus or dizziness. Symptoms are located in both ears. Onset was sudden week(s) ago. The sy End: 26-Sep-2015 22:55 mptoms occur constantly. The patient describes this as worsening. Associated symptoms include cough, while associated symptoms do not include ear drainage, fever, headache, nasal congestion or sore thro at. The patient is not currently being treated for this problem.Encounter Diagnosis: Ceruminosis, bilateral (Renamed from Excessive cerumen in both ear canals) [facility] Office Visit On: 07-Sep-2015 9:39 Encounter Reason: Follow up acute care visit - The patient does not feel well and worsening. Patient has been compliant with instructions. Current medication use: no side effects and compliant with dosing regimen. Patien End: 07-Sep-2015 15:40 t sleeps 7 hours per night. Impact of disease: emotional impact-moderate. Nutrition: balanced diet and supplemental vitamins. The medical issues the patient is following up for include other (abnormal chest xray ?TB )., [ADDITIONAL REASON] Cough Encounter Diagnosis: Abnormal chest xray, Current nonsmoker (Renamed from Current non-smoker), Cough (786.2) [facility] Visit On: 25-Aug-2015 7:26 Encounter Reason: Cough - Cough onset was 1 month(s) ago. Note for Cough: pt notice will bring up green eyllow at times fatigued. achy. no fever. no sore throat. not sob orwheezyEncounter Diagnosis: Cough (786.2) End: 25-Aug-2015 8:23 [facility] Visit On: 15-Apr-2015 13:14 Encounter Reason: Cough - The onset of the cough has been sudden. The cough is characterized as productive of mucoid sputum. The amount of sputum produced is scanty. The cough occurs all the time. The symptoms are aggra End: 15-Apr-2015 13:43 vated by supine posture. There has been no associated fever, hoarseness, runny nose or wheezing. the color of the sputum is clear.Encounter Diagnosis: Cough (786.2), Bronchitis [facility] Visit On: 26-Feb-2012 14:32 Encounter Reason: Follow up acute care visit - The patient feeling better since last seen (Still have the cough but not nearly as often as it was). Patient has been compliant with instructions. Current medication use: no End: 26-Feb-2012 23:34 side effects. The medical issues the patient is following up for include other. Note for Follow up acute care visit: big difference with zyrtec at night and pred in am- but went off and starting to w heezse again- cough productive of clear sputum no feverEncounter Diagnosis: Asthma,Intrinsic (493.11), Allergic rhinitis due to other allergen (477.8) [facility] Visit On: 12-Feb-2012 13:33 Encounter Reason: Cough - The onset of the cough has been 3 weeks ago. The cough is characterized as productive of mucoid sputum. The amount of sputum produced is scanty. The cough occurs all the time. The symptoms are End: 12-Feb-2012 21:31 aggravated by supine posture. The symptoms have been associated with dyspnea (when has alot of sputum in throat), runny nose and wheezing, while the symptoms have not been associated with fever, headach e, hoarseness or sore throat. the color of the sputum is clear. Note for Cough : Pt seen [facility] on 01/28/12.- clear sputum no hx of asthma- felt like got little better while on treatment now feels worse now feels sob- no fever- hears wheezing- didnt take antihistamine-= so encourage him to doEncounter Diagnosis: Wheezing (786.07), Cough (786.2) [facility] Visit On: 28-Jan-2012 8:23 Encounter Reason: Cough - The onset of the cough has been sudden. The cough is characterized as productive of mucoid sputum. The amount of sputum produced is less than a half a cup per day. The cough occurs all the time End: 28-Jan-2012 8:57 . The symptoms are aggravated by supine posture. The symptoms have been associated with hoarseness and runny nose (clear), while the symptoms have not been associated with fever, headache, night sweats, sore throat or wheezing. the color of the sputum is clear and yellowish.Encounter Diagnosis: Allergic rhinitis due to other allergen (477.8), Cerumen impaction (380.4), Cough (786.2), Wheezing (786.07) [facility] Dylan Penn; joe guarantor
--- OUTSIDE RECORDS SUMMARY | 2018-11-02 05:46 | XMS RPT_ITS | Continuity of Care Document ---
:1985 Author Organization [facility] Address [address] [place] [address] Phone Care Team Providers Name Role Phone Jacqueline Ramirez DO Unavailable Filippo Naik Unavailable Cis[place]ia KNOWLEDGE MANAGEMENT CONSULTANT, [place] Unavailable Sayra Small Unavailable Unavailable Maira, Yarelis Unavailable Unavailable Slarb OIL SPRAYER, Yaima Unavailable Unavailable Long OIL SPRAYER, Erum L Unavailable Unavailable Unavailable Unavailable Problems Name Dates Details Abnormal chest xray (R93.89, 793.2) Comments: chest xray reveal complete opacificataion of right hemithorax suggestive of pleural effusion, coarse and increased markings in right upper lobe with areas of confluence, TB should be ruled out Status: Active Abnormal lung function test (R94.2, 794.2) Comments: Severe airway obstruction per spirometry Status: Active 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 meds working well. 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 bronchitis vs pneumonia history of empyema with abnormal spirometry treated with 7 days doxy antibiotic, chest xray abnormal used inhaler and steroid, but cough returned after a couple days off of an tibiotic will consider PFT and Pul referrral Status: Active Current nonsmoker (Renamed from Current non-smoker) (Z78.9, V49.89) Status: Active Depression, recurrent (F33.9, 296.30) Comments: stable on celexa Status: Active Encounter for screening for lipid disorder (Z13.220, V77.91) Status: Active History of empyema of pleura (Z87.09, V12.69) Comments: Had chest tube on rt side, affected lung and rib, hospitalized Summ2014, had 2/3 of lung removed Status: Active History of lung abscess (Z87.09, V12.69) Comments: will xray today, had 27 days of ceftriaxone a year ago, will treat agressively today, check chest, return 2 weeks and consider pneumonia shot at that time per ID recommendationWith S Intermedius, strep veridans Rt lower lung with thoracic surgery by EspAddy Kenny, to get PCV13 flollowed by PPSV23 [...] q 2 yrs, sees Dr. Jackson in [facility]. Status: Active Vitamin D deficiency (E55.9, 268.9) Status: Active Medications Name Dates Details Adderall XR 20 MG Oral Capsule Extended Release 24 Hour 1 (one) Capsule bid for 0 days Quantity: 60 {Capsule} Refills: 0 Ordered:12-Aug-2018 Rashmi Boykin MD Start : 12-Aug-2018 Active Comments:sixty DX: R41.840 Asmanex HFA 100 MCG/ACT Inhalation Aerosol 1 (one) Puff Puff bid for 0 days Quantity: 2 {Inhalation} Refills: 0 Ordered:12-Sep-2018 Sayra Small Start : 26-Aug-2018 Active CeleXA 20 MG Oral Tablet 1 (one) Tablet qhs for 0 days Quantity: 30 {Tablet} Refills: 6 Ordered:27-Mar-2018 Tara Ramirez DO, DO, Kathleen Start : 27-Mar-2018 Active Cheratussin AC 100-10 MG/5ML Oral Solution 4 Milliliter Milliliter qhs prn for cough for 0 days Quantity: 120 {Milliliter} Refills: 0 Ordered:26-Aug-2018 Sayra Small Start : 26-Aug-2018 Active Doxycycline Monohydrate 100 MG Oral Tablet 1 (one) Tablet bid for 10 days Quantity: 20 {Tablet} Refills: 0 Ordered:12-Sep-2018 Tracy Bean CNP Start : 12-Sep-2018 Active ProAir HFA 108 (90 Base) MCG/ACT Inhalation Aerosol Solution 2 (two) Aerosol Soln tid prn for 0 days Quantity: 1 {Inhaler} Refills: 0 Ordered:12-Sep-2018 Tracy Bean CNP Start : 12-Sep-2018 Active ZyrTEC Allergy 10 MG Oral Tablet 1 (one) Tablet Tablet daily for 0 days Quantity: 30 {Tablet} Refills: 0 Ordered:14-Jul-2018 Yarelis Rao Start : 11-Jul-2018 Active Adderall XR 15 MG Oral Capsule Extended Release 24 Hour 1 (one) Capsule in am and around 3 pm for 0 days Quantity: 60 {Capsule} Refills: 0 Ordered:22-Jul-2018 Rashmi Boykni MD Start : 22-Jul-2018 End : 22-Jul-2018 Inactive Comments:sixtyincreased to 20mg bid Bromfed DM 30-2-10 MG/5ML Oral Syrup 10 Milliliter Milliliter [id number] cough for 0 days Quantity: 120 {Milliliter} [...] days Quantity: 90 {Capsule} Refills: 0 Ordered:21-Sep-2016 Marktanner Yarelis Start : 06-Jul-2016 End : 21-Sep-2016 Inactive Doxycycline Hyclate 100 MG Oral Capsule 1 (one) Capsule bid for 7 days Quantity: 14 {Capsule} Refills: 0 Ordered:26-Aug-2018 Tracy Bean CNP Start : 26-Aug-2018 End : 02-Sep-2018 Inactive LEVAQUIN, 500MG (Oral Tablet) 1 (one) [...] Start : 26-Sep-2015 End : 12-Apr-2016 Inactive ZITHROMAX Z-MELANY, 250MG [...] 05-Oct-2016 Discontinued Dispense as Written Comments:with food PredniSONE 10 MG Oral Tablet 1 (one) Tablet 2 bid x 3 days, 1 bid x 3 days 1/2 bid x 3 days for 0 days Quantity: 21 {Tablet} Refills: 0 Ordered:12-Sep-2018 Sayra Small Start : 26-Aug-2018 End : 12-Sep-2018 Discontinued Comments:with food Allergies and Adverse Reactions Name [...] pneumonic infiltration ? TB versus pneumonia.Spoke to 's Beena signs and she recommends sending the patient [...] as of 03-Oct-2015 Procedures Date Value Details 26-Aug-2018 Chest PA and Lateral Result: Comments: See Note; NOTES: [facility] Imaging Services [address] [place] [address] Chest PA and Lateral MR#: [id number] Acct: [id number] Name: BROOKE PENN Rep #: [id number] : 1985 33 From: Arnie Sol MD PCP: Jacqueline Ramirez DO Status: REG CLI Study: Chest PA and Lateral Date of Exam: 08/26/18 Exam# [id number] Ordering Dr: Tracy Bean RIVET CATCHER-C STUDY: X-RAY C HEST REASON FOR EXAM: Male, 33 years old. History of right lung infection. Prior surgery in the right hemithorax. TECHNIQUE: PA and lateral views of the chest. COMPARISON: Comparison is made with valente or examination dated August 08, 2017. FINDINGS: Stable pleural parenchymal changes in the right hemithorax with evidence of a small right pleural effusion with und erlying infiltration and/or atelectasis. Surgical sutures are seen within the right midlung. Stable deformity of the right third rib. The left lung is clear. Normal size heart. Normal mediastinum and h matthew. Normal visualized pulmonary arteries. Normal visualized aortic arch and descending thoracic aorta. Normal visualized thoracic spine. Normal visualized ribs, clavicles, and shoulders. There is no demonstrated abnormality of the visualized soft tissue structures of the upper abdomen. RAD/Chest PA and Lateral IMPRESSION: Stable pleural-paren chymal changes in the right hemithorax. Electronically Signed: Arnie Sol MD at 11:16 EST Tel [phone], Service support , CC: Tracy Bean NP; Jacqueline Ramirez DO Camera Repairer: Signed 08-Aug-2017 Chest PA and Lateral Result: Comments: See Note; NOTES: [facility] Imaging Services [address] [place] [address] Chest PA and Lateral MR#: [id number] Acct: [id number] Name: BROOKE PENN Rep #: [id number] : 1985 M 32 From: Nazario Cardona DO PCP: Jacqueline Ramirez DO Status: REG CLI Study: Chest PA and Lateral Date of Exam: 08/08/17 Exam# [id number] Ordering Dr: Jacqueline Ramirez DO STUDY: X-RAY [...] Nazario Cardona DO at 18:10 EDT Tel [phone], Service support , CC: Jacqueline Ramirez DO Camera Repairer: Signed 22-Oct-2016 Chest PA and Lateral Result: Comments: See Note; NOTES: [facility] Imaging Services [address] [place] [address] Verdana 4d Chest PA and Lateral MR#: [id number] Acct: [id number] Name: BROOKE PENN Rep #: [id number] : 1985 M 31 From: Arnie Sol MD PCP: Jacqueline Ramirez DO Status: REG CLI Study: Chest PA and Lateral Date of Exam: 10/22/16 Exam# [id number] Ordering Dr: Tracy Bean STUDY: X-RAY CHEST [...] Arnie Sol MD at 12:17 EST Tel [phone], Service support [phone], CC: Tracy Bean; Jacqueline Ramirez DO Camera Repairer: Signed 21-Sep-2016 Chest PA and Lateral Result: Comments: See Note; NOTES: [facility] Imaging Services [address] [place] [address] Verdana 4d Chest PA and Lateral MR#: [id number] Acct: [id number] Name: BROOKE PENN Rep #: [id number] : 1985 M 31 From: Arnie Sol MD PCP: Jacqueline Ramirez DO Status: REG CLI Study: Chest PA and Lateral Date of Exam: 09/21/16 Exam# [id number] Ordering Dr: Tracy Bean STUDY: X-RAY CHEST REASON FOR EXAM: Male, 31 years old. The patient has a history of right lung abscess. TECHNIQUE: PA and lateral views of the chest. COMPARISON: Comparison is made with prior study dated D 2014. FINDINGS: The previously seen right pleural [...] Arnie Sol MD at 9:36 EST Tel [phone], Service support [phone], Fax CC: Tracy Bean; Jacqueline Ramirez DO Camera Repairer: Signed 12-Apr-2016 Spirometry (58875) Comments: roxann Result: 07-Sep-2015 Emergency Department Summary Result: Comments: See Note; NOTES: [facility] Medical Records Department [address] [place] [address] Emergency Department Summary MR#: [id number] Acct: [id number] Name: BROOKE PENN Rep #: [id number] : 1985 30 From: Edgardo Arrington MD [...] seen by Dr. Carlson, they obtained a [facility] x-ray. He basically had a whiteout on [...] the patient options. I initially ca lled [facility] per his choice. They currently are out of beds, so I will talk to [facility] about a transfer. He was initially started on Rocephin and Zithromax. Labs and cultures are pending. Edgardo Arrington MD C C: Rashmi Boykin MD T: [facility] JOB: [id number] 09/07/15 1647 <Electronically signed by Edgardo Arrington MD> Date Edgardo Arrington MD Cosigner Signature (If Indicated): Date CC: Rashmi Boykin MD Date Dictated: 09/07/15 1352 D ate Transcribed: 09/07/151351 Camera Repairer: Signed 07-Sep-2015 Chest WITH Contrast Result: Comments: See Note; NOTES: [facility] Imaging Services [address] [place] [address] Verdana 4d Chest WITH Contrast MR#: [id number] Acct: [id number] Name: DAVID PENN Rep #: [id number] : 1985 M 30 From: Arnie Sol MD PCP: Rashmi Boykin MD Status: REG ER Study: Chest WITH Contrast Date of Exam: 09/07/15 Exam# [id number] Ordering Dr: Jose Arrington MD STUDY: CT [...] Arnie Sol MD at 13:25 EST Tel [phone], Service support [phone], CC: Rashmi Boykin MD; Edgardo Arrington MD Camera Repairer: Signed 07-Sep-2015 Chest PA and Lateral Result: Comments: See Note; NOTES: [facility] Imaging Services [address] [place] [address] Verdana 4d Chest PA and Lateral MR#: [id number] Acct: [id number] Name: Milagros PENN R Rep #: [id number] : 1985 30 From: Arnie Sol MD PCP: Rashmi Boykin MD Status: REG CLI Study: Chest PA and Lateral Date of Exam: 09/07/15 Exam# [id number] Ordering Dr: Rashmi Boykin MD STUDY: X-RAY [...] Arnie Sol MD at 9:24 EST Tel [phone], Service support [phone], RAD/Chest PA and Lateral IMPRESSION: There is almost complete opacification of the right hemithorax suggestive of a pleural effusion with underlying pneumonic infiltration. Co arse and increased markings in the right upper lobe with areas of confluence. Tuberculosis should be ruled out. Electronically Signed: Arnie Sol MD at 9:24 EST Tel [phone] , Service support [phone], CC: Rashmi Boykin MD Camera Repairer: Signed 25-Aug-2015 Spirometry (89139) Result: 25-Aug-2015 Spirometry (69902) Comments: see scanned document of test done to see results reviewed today with patient pt not able to coordinate Result: [Preliminary Information] Sensor Calibration Date: 01/24/2015; Sensor SN: [id number]; Pressure: 760; Temperature: 21.5823152411734 [Pre-Bronchodilator] FVC: 1.85733631737473; FEV (0.5 secs): 0.3469991646 91784; FEV (1.0 sec): 0.271442239868574; FEV (3.0 secs): 1.12990987293918; FEV (6.0 secs): 0; FEV (1.0 sec) / FVC: 68.3121442336408; FEV (3.0 secs) / FVC: 99.0731582727033; FEV (1.0 sec) / FEV (6.0 secs ): 0; FEF (25-75%): 0; FEF (75-85%): 0.40896454474753; PEF: 1.02214744695659; FEF (25%): 0; FEF (75%): 0.550768307426206; FEF (200-1200): 0; EXP TIME: 3.26792576639932; Best FVC: 1.2000076024878; Best F EV (1.0 sec): 0.754983093252262; V ext.: -0.166153685375157; FIVC: 0.925769680016853; FIV (0.5 sec): 0.730149053311682; FEV (0.5 secs) / FIV (0.5 secs): 77.5635803158870; FIF (50%): 2.5854759702983; FEF (50%) / FIF (50%): 26.9375379143685; MVV: 0; MTV: 0; RR: 0; MVV [...] smoker Vital Signs Date Test Result Details 12-Sep-20188:20 Temperature 98.6 f Comments: Method: Temporal Pulse 89 /min Comments: Pattern: Regular Respiration Rate 17 /min Comments: Pattern: Unlabored O2 SAT 98 % Comments: Room air BP Systolic 122 mm[Hg] Comments: Patient Position: Sitting; Cuff Location: Left Arm; Cuff Size: Standard BP Diastolic 78 mm[Hg] Comments: Patient Position: Sitting; Cuff Location: Left Arm; Cuff Size: Standard Weight 163.25 lb Height 73 in Body Mass Index Calculated 21.54 kg/m2 Body Surface Area Calculated 1.97 m2 :06 Temperature 97.7 f Comments: Method: Temporal Pulse 108 /min Comments: Pattern: Regular Respiration Rate 16 /min Comments: Pattern: Unlabored O2 SAT 98 % Comments: Room air BP Systolic 118 mm[Hg] Comments: Patient Position: Sitting; Cuff Location: Left Arm; Cuff Size: Standard BP Diastolic 78 mm[Hg] Comments: Patient Position: Sitting; Cuff Location: Left Arm; Cuff Size: Standard Weight 163.25 lb Height 73 in Body Mass Index Calculated 21.54 kg/m2 Body Surface Area Calculated 1.97 m2 :36 Pulse 89 /min Comments: Pattern: Regular [...] kg/m2 Body Surface Area Calculated 2 m2 :35 Temperature 98.8 f Comments: Method: Temporal Pulse [...] 1.91 m2 Results Date Description Value Details 4-Mxy-059228:11 Drug Screen (7drug + Comments: PATIENT NOT FASTINGPERFORMED BY: [facility] [address]TS [id number] [place] [id number] Information: [id number] LM Alcohol) (47463) Ethanol, Urine Negative % (Normal) Phencyclidine Negative ng/mL (Normal) Opiates Negative ng/mL (Normal) Comments: Opiate test includes Codeine and Morphine only. Cocaine (Metab.) Negative ng/mL (Normal) Cannabinoid Negative ng/mL (Normal) Benzodiazepines Negative ng/mL (Normal) Barbiturate Negative ng/mL (Normal) Methamphetamine Negative (Normal) Amphetamine GC/MS Conf >4000 ng/mL (Normal) Amphetamine Positive (Abnormal) Amphetamines Positive (Abnormal) Comments: Amphetamine test includes Amphetamine and Methamphetamine. Amphetamines, Urine See Final Results ng/mL Comments: Amphetamine test includes Amphetamine and Methamphetamine. (Normal) 11-Jul-20189:34 CBC, Platelets & Auto Diff Comments: PATIENT NOT FASTINGPERFORMED BY: [facility] Gauunm7812 [facility] [id number] (94823) Immature Grans (Abs) 0.0 {x10E3/uL} (Normal) Range: [...] 6.8 {x10E3/uL} (Normal) Range: 3.4-10.8 :34 CALCIFEDIOL (58587) Comments: PATIENT NOT FASTINGPERFORMED BY: [employer] [id number] Vitamin D, 25-Hydroxy 15.4 ng/mL (Abnormal) Range: 30.0-100.0 Comments: Vitamin D deficiency has been defined by the [place] of[facility] and an Endocrine Society practice guideline as alevel of serum 25-OH vitamin D less than 20 ng/mL (1,2).The Endocrine Society went on to further define vitamin Dinsufficiency as a level between 21 and 29 ng/mL (2).1. IOM ([place] of Medicine). 2010. Dietary reference intakes for calcium and D. [place]: The National Academies Press.2. Megan MF, Arsenio [place], Remy LOVING, et al. Evaluation, treatment, and prevention of vitamin D deficiency: an Endocrine Society clinical practice guideline. JCEM. 2010; 96(7):1911-30. :34 VITAMIN B12 AND FOLATES Comments: PATIENT NOT FASTINGPERFORMED BY: [facility] CenterQqvfej1571 [facility] [id number] (26424) Folate (Folic Acid), Serum 6.0 ng/mL (Normal) Comments: A serum folate concentration of less than 3.1 ng/mL isconsidered to represent clinical deficiency. Vitamin B12 444 pg/mL (Normal) Range: 232-1245 :34 Metabolic Panel, Comprehensive Comments: PATIENT NOT FASTINGPERFORMED BY: [facility], Old BridgeSuyzga6018 [facility] [id number] (07772) ALT (SGPT) 11 [iU]/L (Normal) Range: 0-44 [...] (THYROID STIMULATING Comments: PATIENT NOT FASTINGPERFORMED BY: [facility], Old BridgeVzxtbh8418 [facility] [id number] HORMONE) (41618) TSH 2.580 {uIU/mL} (Normal) Range: 0.450-4.500 :10 LIPID PANEL (87184) Comments: PATIENT WAS FASTINGPERFORMED BY: [facility]6370 [facility] [id number] LDL/HDL Ratio 2.2 {ratio_units} (Normal) Range: 0.0-3.6 [...] 153 mg/dL (Normal) Range: 100-199 :38 TSH (97471) Comments: PATIENT NOT FASTINGPERFORMED BY: [facility]6370 [facility] [id number] Information: [id number] TSH 2.480 {uIU/mL} (Normal) Range: 0.450-4.500 1-Iuk-794477:23 AFB Stain AND Cytology Comments: [facility] [address] [place], [place], [address] ACID FAST STAIN SEE PATHOLOGY REPORT (Normal) Comments: Specimen submitted to Anatomical Pathology Department fortesting. CYTOLOGY,BF/CSF SEE PATHOLOGY REPORT (Normal) Comments: Specimen submitted to Anatomical Pathology Department fortesting. 9-Eoi-869990:22 Basic Metabolic Profile (BMP) Comments: [facility] [address] [place], [place], [address] GAP 7 (Normal) Range: 5-15 CO2 26.0 [...] 7-18 GLU 90 mg/dL (Normal) Range: 70-110 8-Wqd-456311:22 Liver Profile Comments: [facility] [address] [place], [place], [id number] D BILI 0.11 mg/dL (Normal) Range: 0.00-0.30 T BILI 0.40 mg/dL (Normal) Range: 0.20-1.00 ALT 17 U/L (Normal) Range: 12-78 ALK P 102 U/L (Normal) Range: 50-136 AST 9 U/L (Abnormal) Range: 15-37 GLOB 4.5 g/dL (Abnormal) Range: 2.3-3.5 ALB 2.3 g/dL (Abnormal) Range: 3.4-5.0 T PROT 6.8 g/dL (Normal) Range: 6.4-8.2 1-Yxv-787251:10 CHEST, PA AND LATERAL Comments: appt 02/26/12 [...] EDTElectronically Signed GP/GP Professional Interpretation Provided By: [facility], , To consult with a radiologist regardi ng this report, please call our [id number] line @ Dictated on 02/12/12 1503 by Ebenezer BUENO,Joribed on 02/13/12 1240 by ITS IMPORTSign by Ebenezer BUENO,Arnie on 2 1240 Sign by: Arnie Sol MD Plan of Care Name Dates Details Instructions Current nonsmoker (Renamed from Current non-smoker) : Eprescribed prescriptions (G8553) Indication: Current nonsmoker (Renamed from Current non-smoker) History of empyema of pleura : Follow up in 2 weeks Indication: History of empyema of pleura Current nonsmoker (Renamed from Current non-smoker) : Eprescribed prescriptions (G8553) Indication: Current nonsmoker (Renamed from Current non-smoker) ADD (attention deficit disorder) without hyperactivity : [...] DUE TO OTHER ALLERGEN Planned Observations Drug screen, qualitative,multiple drug class other than Chromatographic method, each procedure (77187)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 On: 12-Aug-20188:48 Request Drug Screen (7drug + Alcohol) (40944)Indication: Attention disturbance On: 6-Muk-733043:10 Request CALCIFEDIOL (10434)Indication: Vitamin D deficiency On: 14-Jul-20189:00 Request Planned Encounters Medical; 3 Month FU - On: 17-Nov-2018 8:30 [facility] Tracy Bean CNP Medical; ADD EST VISIT - On: 06-Feb-2019 7:00 [facility] Ashutosh BUENO, Rashmi Ruby Planned Procedures PFT - Before and After SpiroBy: On: 12-Sep-2018 Intent Tracy Bean CNP CHEST XRAY, PA & LATERAL On: 26-Aug-2018 Intent (03430)By: Tracy Bean CNP Aerosol Treatment (80148)By: On: 26-Aug-2018 Intent Tracy Bean CNP Spirometry (53966)By: Vikas CHRISTOPHER, On: 26-Aug-2018 Intent Tracy Ward Comments: Severe airway obstruction a little easier after aerosol Flu Vaccine (Quadrivalent) On: 11-Jul-2018 Intent 08486Jh: Tracy Bean CNP Comments: Lot #[id number]-L dltd, IMDose prefilled syringegiven by:FRANCISCA Venegas reviewed and ABN signed Radiology - Chest- PA and LatBy: On: 08-Aug-2017 Intent Jacqueline Ramirez DO AshleyJacqueline duarte DO Flu Vaccine (Quadrivalent) On: 08-Aug-2017 Intent 54723Up: Jacqueline Ramirez DO Comments: Lot:[id number]/22Amt:0.5mlRoute:IMSite: L DltdGiven By: Milagros SALES signed Ashley Jacqueline FLORES Radiology - ChestBy: Vikas CHRISTOPHER, On: 23-Oct-2016 Intent Tracy Ward Radiology - ChestBy: Vikas CHRISTOPHER, On: 21-Sep-2016 Intent Tracy Ward Comments: history of Rt lung abcess Wax CurettesBy: Tracy Bean CNP On: 21-Sep-2016 Intent Aerosol Treatment (94978)By: On: 21-Sep-2016 Intent Tracy Bean CNP Flu Vaccine (Quadrivalent) On: 06-Jul-2016 Intent 36033Jj: Jacqueline Ramirez DO Comments: Lot:[id number]/05/17Dose:0.5mLRoute:IMSite:L DltdGiven By:Inocente signed Ashley DO Jacqueline Wax Currettes (03051)By: Jose Francisco On: 26-Sep-2015 Intent Yaima VU Ear Irrigation (92835)By: Danial On: 26-Sep-2015 Intent Lina FLORES Comments: Large amount of wax removed from both earsdark yellow in colortolerated HORACE tobar Radiology - ChestBy: Ashutosh BUENO, On: 25-Aug-2015 Intent Rashmi Ruby Comments: A/P if not betgter in 2 weeks Spirometry (45185)By: Danial FLORES, On: 26-Feb-2012 Intent Lina A Comments: good effor tand curve mod obst Inhaler Demo (75524)By: Danial FLORES, On: 26-Feb-2012 Intent Lina A PFT - CompleteBy: Lina Barrow DO On: 26-Feb-2012 Intent A Spirometry (30053)By: Danial FLORES, On: 12-Feb-2012 Intent Lina A Comments: good effort flat curve mod obst Radiology - Chest- PA and LatBy: On: 12-Feb-2012 Intent Lina Barrow DO Aerosol Treatment (54550)By: Danial On: 12-Feb-2012 Intent Lina FLORES Pulse Oximetry (14101)By: On: 12-Feb-2012 Intent Libertad Melchor Aerosol Treatment (96013)By: On: 28-Jan-2012 Intent Tracy Bean CNP Wax CurettesBy: Tracy Bean CNP On: 28-Jan-2012 Intent Ear Irrigation (71407)By: Vikas On: 28-Jan-2012 Intent Tracy CHRISTOPHER Instructions Name Dates Details Current nonsmoker (Renamed from Current non-smoker) : [...] Indication: Current nonsmoker (Renamed from Current non-smoker) ADD (attention deficit disorder) without hyperactivity : [...] Cough : Patient Instructions Indication: Cough Encounters Office Visit On: 12-Sep-2018 8:18 Encounter Reason: Follow up acute care visit - The patient worsening. Note for Follow up acute care visit: Was treated with doxy but cough returned after a day or two 7-10 days ago. Was on doxy and prednisone and cough med, End: 12-Sep-2018 9:24 [ADDITIONAL REASON] Cough - Note for Cough: Coughing during day worse now Encounter Diagnosis: BMI 21.0-21.9, adult, Current nonsmoker (Renamed from Current non- smoker), History of empyema of pleura, Cough, Neurofibromatosis [facility] Office Visit On: 26-Aug-2018 9:05 Encounter Reason: Cough - Symptoms include cough. The cough is described as productive. Cough onset was 2 day(s) ago. Note for Cough: Worry with history of empyema and hospitalization for empyema, removed 2/3 or rt mary kate End: 26-Aug-2018 10:20 g. This cough has lasted 1 week using mucinex and nyquil but cough not resolved.Encounter Diagnosis: Current nonsmoker (Renamed from Current non-smoker), BMI 21.0-21.9, adult, Cough, History of empyema of pleura, Abnormal lung function test [facility] Lab Order On: 12-Aug-2018 13:46 Encounter Diagnosis: [...] (786.2), Wheezing (786.07) [facility]ayers [facility]; joe guarantor
--- OUTSIDE RECORDS SUMMARY | 2018-11-02 05:47 | XMS RPT_ITS | Continuity of Care Document ---
:1985 Author Organization [facility] Address [address] [facility] [address] [place] [address] Phone Care Team Providers Name Role Phone Jacqueline Ramirez DO Unavailable Vikas CHRISTOPHER, Tracy Ward Unavailable Yarelis Rao Unavailable Unavailable Ashutosh BUENO, Rashmi Ruby Unavailable Slarb LOW VISION THERAPIST, Yaima Unavailable Unavailable Long LOW VISION THERAPIST, Erum L Unavailable Unavailable Unavailable Unavailable Problems Name Dates Details Abnormal chest xray (R93.8, 793.2) Comments: chest xray reveal complete opacificataion of right hemithorax suggestive of pleural effusion, coarse and increased markings in right upper lobe with areas of confluence, TB should be ruled out Status: Active ALLERGIC RHINITIS DUE TO OTHER [...] rt side, affected lung and rib, hospitalized 2014 Status: Active History of lung abscess (Z87.09, [...] q 2 yrs, sees Dr. Jackson in [facility]. Status: Active Vitamin D deficiency (E55.9, 268.9) Status: Active Medications Name Dates Details Adderall XR 15 MG Oral Capsule Extended Release 24 Hour 1 (one) Capsule in am and around 3 pm for 0 days Quantity: 60 {Capsule} Refills: 0 Ordered:14-Jul-2018 Rashmi Boykin MD Start : 14-Jul-2018 Active Comments:sixty CeleXA 20 MG Oral Tablet 1 (one) Tablet qhs for 0 days Quantity: 30 {Tablet} Refills: 6 Ordered:27-Mar-2018 Tara Ramirez DO, DO, Kathleen Start : 27-Mar-2018 Active ZyrTEC Allergy 10 MG Oral Tablet 1 (one) Tablet Tablet daily for 0 days Quantity: 30 {Tablet} Refills: 0 Ordered:14-Jul-2018 Yarelis Rao Start : 11-Jul-2018 Active Bromfed DM 30-2-10 MG/5ML Oral Syrup 10 Milliliter Milliliter a6zkihi cough for 0 days Quantity: 120 {Milliliter} Refills: 0 Ordered:08-Aug-2017 Doris Braxton LPN Start : 21-Sep-2016 End : 08-Aug-2017 Inactive Cefdinir 300 MG Oral Capsule 1 (one) Capsule Capsule q12 for 10 days Quantity: 20 {Capsule} Refills: 0 Ordered:21-Sep-2016 Vikas CHRISTOPHER Tracy Ward Start : 21-Sep-2016 End : 01-Oct-2016 Inactive [...] days Quantity: 14 {Capsule} Refills: 0 Ordered:25-Sep-2016 Vikas CHRISTOPHER Tracy Ward Start : 25-Sep-2016 End : 02-Oct-2016 Inactive [...] Lateral Result: Comments: See Note; NOTES: [facility] Imaging Services [address] [place] [address] Chest PA and Lateral MR#: [id number] Acct: [id number] Name: BROOKE PENN Rep #: [id number] : 1985 M 32 From: Nazario Cardona DO PCP: Jacqueline Ramirez DO Status: REG CLI Study: Chest PA and Lateral Date of Exam: 08/08/17 Exam# [id number] Ordering Dr: Jacqueline Ramirez DO STUDY: X-RAY [...] Nazario Cardona DO at 18:10 EDT Tel [phone], Service support , CC: Jacqueline Ramirez DO Computer Systems Manager: Signed 22-Oct-2016 Chest PA and Lateral Result: Comments: See Note; NOTES: [facility] Imaging Services [address] [place] [address] Verdana 4d Chest PA and Lateral MR#: [id number] Acct: [id number] Name: BROOKE PENN Rep #: [id number] : 1985 31 From: Arnie Sol MD PCP: Jacqueline Ramirez DO Status: REG CLI Study: Chest PA and Lateral Date of Exam: 10/22/16 Exam# [id number] Ordering Dr: Tracy Bean STUDY: X-RAY CHEST [...] Arnie Sol MD at 12:17 EST Tel [phone], Service support [phone], CC: Tracy Bean; Jacqueline Ramirez DO Computer Systems Manager: Signed 21-Sep-2016 Chest PA and Lateral Result: Comments: See Note; NOTES: [facility] Imaging Services [address] [place] [address] Verdana 4d Chest PA and Lateral MR#: [id number] Acct: [id number] Name: BROOKE PENN Ace Rep #: [id number] : 1985 M 31 From: Arnie Sol MD PCP: Jacqueline Ramirez DO Status: REG CLI Study: Chest PA and Lateral Date of Exam: 09/21/16 Exam# [id number] Ordering Dr: Tracy Bean STUDY: X-RAY CHEST [...] Arnie Sol MD at 9:36 EST Tel [phone], Service support [phone], Fax CC: Tracy Bean; Jacqueline Ramirez DO Computer Systems Manager: Signed 12-Apr-2016 Spirometry (53438) Comments: roxann Result: 07-Sep-2015 Emergency Department Summary Result: Comments: See Note; NOTES: [facility] Medical Records Department [address] [place] [address] Emergency Department Summary MR#: [id number] Acct: [id number] Name: BROOKE PENN Rep #: [id number] : 1985 30 From: Edgardo Arrington MD [...] the patient options. I initially ca lled [facility] per his choice. They currently are out of beds, so I will talk to [facility] about a transfer. He was initially started on Rocephin and Zithromax. Labs and cultures are pending. Edgardo Arrington MD C C: Rashmi Boykin MD T: NTS JOB: [id number] 09/07/15 1647 <Electronically signed by Edgardo Arrington MD> Date Edgardo Arrington MD Cosigner Signature (If Indicated): Date CC: Rashmi Boykin MD Date Dictated: 09/07/15 1352 D ate Transcribed: 09/07/151351 Computer Systems Manager: Signed 07-Sep-2015 Chest WITH Contrast Result: Comments: See Note; NOTES: [facility] Imaging Services [address] [place] [address] Verdana 4d Chest WITH Contrast MR#: [id number] Acct: [id number] Name: DAVID PENN Rep #: [id number] : 1985 M 30 From: Arnie Sol MD PCP: Rashmi Boykin MD Status: REG ER Study: Chest WITH Contrast Date of Exam: 09/07/15 Exam# [id number] Ordering Dr: Jose Arrington MD STUDY: CT [...] Arnie Sol MD at 13:25 EST Tel [phone], Service support [phone], CC: Rashmi Boykin MD; Edgardo Arrington MD Computer Systems Manager: Signed 07-Sep-2015 Chest PA and Lateral Result: Comments: See Note; NOTES: [facility] Imaging Services [address] [place] [address] Verver[place] 4d Chest PA and Lateral MR#: [id number] Acct: [id number] Name: Milagros PENN R Rep #: [id number] : 1985 30 From: Arnie Sol MD PCP: Rashmi Boykin MD Status: REG CLI Study: Chest PA and Lateral Date of Exam: 09/07/15 Exam# [id number] Ordering Dr: Rashmi Boykin MD STUDY: X-RAY [...] Arnie Sol MD at 9:24 EST Tel [phone], Service support [phone], RAD/Chest PA and Lateral IMPRESSION: There is almost complete opacification of the right hemithorax suggestive of a pleural effusion with underlying pneumonic infiltration. Co arse and increased markings in the right upper lobe with areas of confluence. Tuberculosis should be ruled out. Electronically Signed: Arnie Sol MD at 9:24 EST Tel [phone] , Service support [phone], CC: Rashmi Boykin MD Computer Systems Manager: Signed 25-Aug-2015 Spirometry (69642) Result: 25-Aug-2015 Spirometry (84019) Comments: see scanned document of test done to see results reviewed today with patient pt not able to coordinate Result: [Preliminary Information] Sensor Calibration Date: 01/24/2015; Sensor SN: [id number]; Pressure: 760; Temperature: 21.6202603496985 [Pre-Bronchodilator] FVC: 1.68099497012565; FEV (0.5 secs): 0.9885805482 90557; FEV (1.0 sec): 0.746902610049150; FEV (3.0 secs): 1.02459939842163; FEV (6.0 secs): 0; FEV (1.0 sec) / FVC: 68.6995950117714; FEV (3.0 secs) / FVC: 99.4761072626992; FEV (1.0 sec) / FEV (6.0 secs ): 0; FEF (25-75%): 0; FEF (75-85%): 0.74777769176280; PEF: 1.94191473820718; FEF (25%): 0; FEF (75%): 0.041995521531387; FEF (200-1200): 0; EXP TIME: 3.82222242936699; Best FVC: 1.1583500583477; Best F EV (1.0 sec): 0.766725888390629; V ext.: -0.120740783854825; FIVC: 0.781710448133480; FIV (0.5 sec): 0.301472312074805; FEV (0.5 secs) / FIV (0.5 secs): 77.3187435496798; FIF (50%): 2.0332379895727; FEF (50%) / FIF (50%): 26.3005149735876; MVV: 0; MTV: 0; RR: 0; MVV [...] smoker Vital Signs Date Test Result Details 9-Ozp-976775:35 Temperature 98.8 f Comments: Method: Temporal Pulse [...] Diff Comments: PATIENT NOT FASTINGPERFORMED BY: [facility] Uhfpbf9722 [facility] [id number] ([id number]) Immature Grans (Abs) 0.0 {x10E3/uL} (Normal) Range: [...] 6.8 {x10E3/uL} (Normal) Range: 3.4-10.8 :34 CALCIFEDIOL (16958) Comments: PATIENT NOT FASTINGPERFORMED BY: [facility]Atl[facility] CampusNzunzx3072 [facility] [id number] Vitamin D, 25-Hydroxy 15.4 ng/mL (Abnormal) Range: 30.0-100.0 Comments: Vitamin D deficiency has been defined by the [place] ofAv[facility] Health Systemcine and an Endocrine Society practice guideline as alevel of serum 25-OH vitamin D less than 20 ng/mL (1,2).The Endocrine Society went on to further define vitamin Dinsufficiency as a level between 21 and 29 ng/mL (2).1. IOM ([place] of Medicine). 2010. Dietary reference intakes for calcium and D. [place]: The National Academies Press.2. Megan MF, Arsenio [place], Remy LOVING, et al. Evaluation, treatment, and prevention of vitamin D deficiency: an Endocrine Society clinical practice guideline. JCEM. 2010; 96(7):1911-30. :34 VITAMIN B12 AND FOLATES Comments: PATIENT NOT FASTINGPERFORMED BY: [employer]70 [facility] [id number] (79969) Folate (Folic Acid), Serum 6.0 ng/mL (Normal) Comments: A serum folate concentration of less than 3.1 ng/mL isconsidered to represent clinical deficiency. Vitamin B12 444 pg/mL (Normal) Range: 232-1245 :34 Metabolic Panel, Comprehensive Comments: PATIENT NOT FASTINGPERFORMED BY: [employer]70 [facility] [id number] (01047) ALT (SGPT) 11 [iU]/L (Normal) Range: 0-44 [...] (THYROID STIMULATING Comments: PATIENT NOT FASTINGPERFORMED BY: [employer]70 [facility] [id number] HORMONE) (34006) TSH 2.580 {uIU/mL} (Normal) Range: 0.450-4.500 36-Mle-44350:10 LIPID PANEL (81446) Comments: PATIENT WAS FASTINGPERFORMED BY: [facility] [facility] [id number] LDL/HDL Ratio 2.2 {ratio_units} (Normal) Range: 0.0-3.6 [...] 153 mg/dL (Normal) Range: 100-199 :38 TSH (58634) Comments: PATIENT NOT FASTINGPERFORMED BY: [facility]6[address] [facility] [id number] Information: [id number] TSH 2.480 {uIU/mL} (Normal) Range: 0.450-4.500 8-Dzk-957309:23 AFB Stain AND Cytology Comments: [facility] [address] [place], [place], [address] ACID FAST STAIN SEE PATHOLOGY REPORT (Normal) Comments: Specimen submitted to Anatomical Pathology Department fortesting. CYTOLOGY,BF/CSF SEE PATHOLOGY REPORT (Normal) Comments: Specimen submitted to Anatomical Pathology Department fortesting. 3-Kej-935615:22 Basic Metabolic Profile (BMP) Comments: [facility] [address] [place], [place], [address] GAP 7 (Normal) Range: 5-15 CO2 26.0 [...] 7-18 GLU 90 mg/dL (Normal) Range: 70-110 3-Gfk-681531:22 Liver Profile Comments: [facility] [address] [place], [address] D BILI 0.11 mg/dL (Normal) Range: 0.00-0.30 T BILI 0.40 mg/dL (Normal) Range: 0.20-1.00 ALT 17 U/L (Normal) Range: 12-78 ALK P 102 U/L (Normal) Range: 50-136 AST 9 U/L (Abnormal) Range: 15-37 GLOB 4.5 g/dL (Abnormal) Range: 2.3-3.5 ALB 2.3 g/dL (Abnormal) Range: 3.4-5.0 T PROT 6.8 g/dL (Normal) Range: 6.4-8.2 5-Jin-249981:10 CHEST, PA AND LATERAL Comments: appt 02/26/12 [...] EDTElectronically Signed GP/GP Professional Interpretation Provided By: [facility], , To consult with a radiologist regardi ng this report, please call our [id number] line @ Dictated on 02/12/12 1503 by Ebenezer BUENO,Agusscribed on 02/13/12 1240 by ITS IMPORTSign by Ebenezer BUENO,Arnie on 2 1240 Sign by: Arnie Sol MD Plan of Care Name Dates Details Instructions Attention disturbance : Eprescribed prescriptions (G8553) Indication: [...] Planned Observations Drug Screen (7drug + Alcohol) (22763)Indication: Attention disturbance On: 4-Drj-019830:10 Request CALCIFEDIOL (22376)Indication: Vitamin D deficiency On: 14-Jul-20189:00 Request Planned Encounters Medical; ADD EST VISIT - On: 12-Aug-2018 8:00 [facility] Ashutosh BUENO, Rashmi Ruby Planned Procedures Flu Vaccine (Quadrivalent) On: 11-Jul-2018 Intent 27659Af: Tracy Bean CNP Comments: Lot #[id number]-L dltd, IMDose prefilled syringegiven by:FRANCISCA Venegas reviewed and ABN signed Radiology - Chest- PA and On: 08-Aug-2017 Intent LatBy: Jacqueline Ramirez DO, DO, Kathleen Flu Vaccine (Quadrivalent) On: 08-Aug-2017 Intent 26955Nv: Jacqueline Ramirez DO Comments: Lot:[id number]:01/22Amt:0.5mlRoute:IMSite: L DltdGiven By: Milagros Melchor CMAVIS signed Jacqueline Ramirez DO Radiology - ChestBy: Vikas CHRISTOPHER, On: 23-Oct-2016 Intent Tracy Ward Radiology - ChestBy: Teresasukijoe ASHWIN, On: 21-Sep-2016 Intent Tracy Ward Comments: history of Rt lung abcess Wax CurettesBy: Tracy Bean CNP On: 21-Sep-2016 Intent E Aerosol Treatment (39009)By: On: 21-Sep-2016 Intent Lizbethjoe Tracy CHRISTOPHER Flu Vaccine (Quadrivalent) On: 06-Jul-2016 Intent 55581Mp: Jacqueline Ramirez DO Comments: Lot:[id number]:04/05/17Dose:0.5mLRoute:IMSite:L DltdGiven By:Ioncente signed Jacqueline Ramirez DO Wax Currettes (48064)By: Jose Francisco On: 26-Sep-2015 Intent Yaima VU Ear Irrigation (07754)By: Danial On: 26-Sep-2015 Intent Lina FLORES Comments: Large amount of wax removed from both earsdark yellow in colortolerated HORACE tobar Radiology - ChestBy: Ashutosh On: 25-Aug-2015 Intent Rashmi BUENO Comments: A/P if not betgter in 2 weeks Spirometry (74731)By: Danial FLORES, On: 26-Feb-2012 Intent Lina A Comments: good effor tand curve mod obst Inhaler Demo (54341)By: Danial On: 26-Feb-2012 Intent Lina FLORES PFT - CompleteBy: Danial FLORES, On: 26-Feb-2012 Intent Lina Burger Spirometry (35326)By: Danial FLORES, On: 12-Feb-2012 Intent Lina A Comments: good effort flat curve mod obst Radiology - Chest- PA and On: 12-Feb-2012 Intent LatBy: Danial FLORES Lina A Aerosol Treatment (11281)By: On: 12-Feb-2012 Intent Lina Barrow DO Pulse Oximetry (91665)By: On: 12-Feb-2012 Intent Libertad Melchor Aerosol Treatment (42400)By: On: 28-Jan-2012 Intent Teresasukijoe CHRISTOPHERTracy E Wax CurettesBy: Tracy Bean CNP On: 28-Jan-2012 Intent E Ear Irrigation (94908)By: On: 28-Jan-2012 Intent Teresasukia Tracy CHRISTOPHER Instructions Name Dates Details Attention disturbance : How to access health [...] Instructions Indication: Cough Encounters Office Visit On: 14-Jul-2018 15:24 Encounter Reason: [...] side effects and compliant with dosing regimen. Jani End: 07-Sep-2015 15:40 t sleeps 7 hours [...] (786.2), Wheezing (786.07) [facility] CenterBro[facility]; joe guarantor
--- OUTSIDE RECORDS SUMMARY | 2018-11-02 05:47 | XMS RPT_ITS | Continuity of Care Document ---
:1985 Author Organization [facility] Address [address] [place] [address] Phone Care Team Providers Name Role Phone Jacqueline Ramirez DO Unavailable Cisukia LABOR REPRESENTATIVE, Tracy Ward Unavailable Sayra Small Unavailable Unavailable Manchak, Yarelis Unavailable Unavailable Slarb DRY MILL OPERATOR, Yaima Unavailable Unavailable Long DRY MILL OPERATOR, Erum L Unavailable Unavailable Unavailable Unavailable Problems [...] Comments: meets criteria. meds working well. 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 Jackson in [facility]. Status: Active Vitamin D deficiency (E55.9, 268.9) Status: Active Medications Name Dates Details Adderall XR 20 MG Oral Capsule Extended Release 24 Hour 1 (one) Capsule bid for 0 days Quantity: 60 {Capsule} Refills: 0 Ordered:12-Aug-2018 Rashmi Boykin MD Start : 12-Aug-2018 Active Comments:sixty DX: R41.840 Asmanex HFA 100 MCG/ACT Inhalation Aerosol 1 (one) Puff bid for 0 days Quantity: 2 {Inhalation} Refills: 0 Ordered:26-Aug-2018 Lizbethjoe CHRISTOPHERTracy Start : 26-Aug-2018 Active CeleXA 20 MG Oral Tablet 1 (one) Tablet qhs for 0 days Quantity: 30 {Tablet} Refills: 6 Ordered:27-Mar-2018 Tara Ramirez DO, DO, Kathleen Start : 27-Mar-2018 Active Cheratussin AC 100-10 MG/5ML Oral Solution 4 Milliliter qhs prn for cough for 0 days Quantity: 120 {Milliliter} Refills: 0 Ordered:26-Aug-2018 Lizbethjoe CHRISTOPHERTracy Start : 26-Aug-2018 Active Doxycycline Hyclate 100 MG Oral Capsule 1 (one) Capsule bid for 7 days Quantity: 14 {Capsule} Refills: 0 Ordered:26-Aug-2018 Tracy Bean CNP Start : 26-Aug-2018 Active PredniSONE 10 MG Oral Tablet 1 (one) Tablet 2 bid x 3 days, 1 bid x 3 days 1/2 bid x 3 days for 0 days Quantity: 21 {Tablet} Refills: 0 Ordered:26-Aug-2018 Tracy Bean CNP Start : 26-Aug-2018 Active Comments:with food ProAir HFA 108 (90 Base) MCG/ACT Inhalation Aerosol Solution 2 (two) Aerosol Soln tid prn for 0 days Quantity: 1 {Inhaler} Refills: 0 Ordered:26-Aug-2018 Tracy Bean CNP Start : 26-Aug-2018 Active ZyrTEC Allergy 10 MG Oral Tablet [...] 30-2-10 MG/5ML Oral Syrup 10 Milliliter Milliliter [id number] cough for 0 days Quantity: 120 {Milliliter} [...] Start : 06-Jul-2016 End : 21-Sep-2016 Inactive LEVAQUIN, 500MG (Oral Tablet) 1 (one) [...] days Quantity: 1 {Aero_Pow_Br_Act} Refills: 1 Ordered:15-Apr-2015 Jim HORACELeatha Start : 26-Feb-2012 End : 15-Apr-2015 Discontinued PredniSONE 10 MG (21) Oral Tablet Therapy Pack 1 (one) Tab Ther Pack 1 bid x 3 days, then 1 daily x 3 days, then 1/2 x 3 days for 0 days Quantity: 11 {Tablet} Refills: 0 Ordered:05-Oct-2016 Jose Francisco DRY MILL OPERATORYaima Henderson Start : 25-Sep-2016 End : 05-Oct-2016 Discontinued [...] pneumonic infiltration ? TB versus pneumonia.Spoke to Dr.'s Hargrove signs and she recommends sending the [...] and Lateral Result: Comments: See Note; NOTES: [facility] Imaging Services [address] [place] [address] Chest PA and Lateral MR#: [id number] Acct: [id number] Name: BROOKE PENN Rep #: [id number] : 1985 M 32 From: Nazario Cardona DO PCP: Jacqueline Ramirez DO Status: REG CLI Study: Chest PA and Lateral Date of Exam: 08/08/17 Exam# [id number] Ordering Dr: Jacqueline Ramirez DO STUDY: X-RAY [...] Nazario Cardona DO at 18:10 EDT Tel [phone], Service support , CC: Jacqueline Ramirez DO Wet Pan Operator: Signed 22-Oct-2016 Chest PA and Lateral Result: Comments: See Note; NOTES: [facility] Imaging Services [address] [place] [address] Verdana 4d Chest PA and Lateral MR#: [id number] Acct: [id number] Name: BROOKE PENN Rep #: [id number] : 1985 M 31 From: Arnie Sol MD PCP: Jacqueline Ramirez DO Status: REG CLI Study: Chest PA and Lateral Date of Exam: 10/22/16 Exam# [id number] Ordering Dr: Tracy Bean STUDY: X-RAY CHEST [...] Arnie Sol MD at 12:17 EST Tel [phone], Service support [phone], CC: Tracy Bean; Jacqueline Ramirez DO Wet Pan Operator: Signed 21-Sep-2016 Chest PA and Lateral Result: Comments: See Note; NOTES: [facility] Imaging Services [address] [place] [address] Aldalakeshia 4d Chest PA and Lateral MR#: [id number] Acct: [id number] Name: BROOKE PENN Rep #: [id number] : 1985 M 31 From: Arnie Sol MD PCP: Jacqueline Ramirez DO Status: REG CLI Study: Chest PA and Lateral Date of Exam: 09/21/16 Exam# [id number] Ordering Dr: Tracy Bean STUDY: X-RAY CHEST [...] Arnie Sol MD at 9:36 EST Tel [phone], Service support [phone], Fax CC: Tracy Bean; Jacqueline Ramirez DO Wet Pan Operator: Signed 12-Apr-2016 Spirometry (48082) Comments: noraml Result: 07-Sep-2015 Emergency Department Summary Result: Comments: See Note; NOTES: [facility] Medical Records Department [address] [place] [address] Emergency Department Summary MR#: [id number] Acct: [id number] Name: BROOKE PENN Rep #: [id number] : 1985 30 From: Edgardo Arrington MD [...] the patient options. I initially ca lled [facility] per his choice. They currently are out of beds, so I will talk to [facility] about a transfer. He was initially started on Rocephin and Zithromax. Labs and cultures are pending. MD Octavia Pina C: Rashmi Boykin MD T: [facility] JOB: [id number] 09/07/15 1647 <Electronically signed by Edgardo Arrington MD> Date Edgardo Arrington MD Cosigner Signature (If Indicated): Date CC: Rashmi Boykin MD Date Dictated: 09/07/152 D ate Transcribed: 09/07/151351 Wet Pan Operator: Signed 07-Sep-2015 Chest WITH Contrast Result: Comments: See Note; NOTES: [facility] Imaging Services [address] [place] [address] Verdana 4d Chest WITH Contrast MR#: [id number] Acct: [id number] Name: DAVID PENN Rep #: [id number] : 1985 M 30 From: Arnie Sol MD PCP: Rashmi Boykin MD Status: REG ER Study: Chest WITH Contrast Date of Exam: 09/07/15 Exam# [id number] Ordering Dr: Jose Arrington MD STUDY: CT [...] Arnie Sol MD at 13:25 EST Tel [phone], Service support [phone], CC: Rashmi Boykin MD; Edgardo Arrington MD Wet Pan Operator: Signed 07-Sep-2015 Chest PA and Lateral Result: Comments: See Note; NOTES: [facility] Imaging Services [address] [place] [address] Verdana 4d Chest PA and Lateral MR#: [id number] Acct: [id number] Name: Milagros PENN Rep #: [id number] : 1985 M 30 From: Arnie Sol MD PCP: Rashmi Boykin MD Status: REG CLI Study: Chest PA and Lateral Date of Exam: 09/07/15 Exam# [id number] Ordering Dr: Rashmi Boykin MD STUDY: X-RAY [...] Arnie Sol MD at 9:24 EST Tel [phone], Service support [phone], RAD/Chest PA and Lateral IMPRESSION: There is almost complete opacification of the right hemithorax suggestive of a pleural effusion with underlying pneumonic infiltration. Co arse and increased markings in the right upper lobe with areas of confluence. Tuberculosis should be ruled out. Electronically Signed: Arnie Sol MD at 9:24 EST Tel [phone] , Service support [phone], CC: Rashmi Boykin MD Wet Pan Operator: Signed 25-Aug-2015 Spirometry (99979) Result: 25-Aug-2015 Spirometry (63982) Comments: see scanned document of test done to see results reviewed today with patient pt not able to coordinate Result: [Preliminary Information] Sensor Calibration Date: 01/24/2015; Sensor SN: [id number]; Pressure: 760; Temperature: 21.8169868458219 [Pre-Bronchodilator] FVC: 1.32130793438367; FEV (0.5 secs): 0.1735509211 43341; FEV (1.0 sec): 0.239775643763903; FEV (3.0 secs): 1.89673567825446; FEV (6.0 secs): 0; FEV (1.0 sec) / FVC: 68.2326616386901; FEV (3.0 secs) / FVC: 99.9682470402977; FEV (1.0 sec) / FEV (6.0 secs ): 0; FEF (25-75%): 0; FEF (75-85%): 0.06536183575797; PEF: 1.35132011968277; FEF (25%): 0; FEF (75%): 0.777902243064483; FEF (200-1200): 0; EXP TIME: 3.56519725400753; Best FVC: 1.8889819172630; Best F EV (1.0 sec): 0.100512571293650; V ext.: -0.743589415192350; FIVC: 0.251143207423445; FIV (0.5 sec): 0.129086959041899; FEV (0.5 secs) / FIV (0.5 secs): 77.4784143598237; FIF (50%): 2.1478438747935; FEF (50%) / FIF (50%): 26.4548674194474; MVV: 0; MTV: 0; RR: 0; MVV [...] smoker Vital Signs Date Test Result Details :06 Temperature 97.7 f Comments: Method: Temporal [...] kg/m2 Body Surface Area Calculated 2 m2 0-Dfi-412044:35 Temperature 98.8 f Comments: Method: Temporal Pulse [...] 1.91 m2 Results Date Description Value Details :11 Drug Screen (7drug + Comments: PATIENT NOT FASTINGPERFORMED BY: [facility] OTS GUR9902 [facility] [id number] Information: [id number] LM Alcohol) (53539) Ethanol, Urine Negative % (Normal) Phencyclidine Negative [...] Auto Diff Comments: PATIENT NOT FASTINGPERFORMED BY: [facility]Saint [facility] DoverChuzyp3429 [facility] [id number] (21173) Immature Grans (Abs) 0.0 {x10E3/uL} (Normal) Range: [...] 6.8 {x10E3/uL} (Normal) Range: 3.4-10.8 :34 CALCIFEDIOL (50324) Comments: PATIENT NOT FASTINGPERFORMED BY: [facility] HospitalZdhack1422 [facility] [id number] Vitamin D, 25-Hydroxy 15.4 ng/mL (Abnormal) Range: 30.0-100.0 Comments: Vitamin D deficiency has been defined by the [place] of[place] and an Endocrine Society practice guideline as alevel of serum 25-OH vitamin D less than 20 ng/mL (1,2).The Endocrine Society went on to further define vitamin Dinsufficiency as a level between 21 and 29 ng/mL (2).1. IOM ([place] of [employer]). 2010. Dietary reference intakes for calcium and D. [place]: The National Academies Press.2. Megan MF, Arsenio LOVETT, Remy LOVING, et al. Evaluation, treatment, and prevention of vitamin D deficiency: an Endocrine Society clinical practice guideline. JCEM. 2010; 96(7):1911-30. :34 VITAMIN B12 AND FOLATES Comments: PATIENT NOT FASTINGPERFORMED BY: [employer] Vwbaox1585 [facility] [id number] (18847) Folate (Folic Acid), Serum 6.0 ng/mL (Normal) Comments: A serum folate concentration of less than 3.1 ng/mL isconsidered to represent clinical deficiency. Vitamin B12 444 pg/mL (Normal) Range: 232-1245 :34 Metabolic Panel, Comprehensive Comments: PATIENT NOT FASTINGPERFORMED BY: [facility]6370 [facility] [id number] ([id number]) ALT (SGPT) 11 [iU]/L (Normal) Range: 0-44 [...] 6-20 Glucose 74 mg/dL (Normal) Range: 65-99 11-Jul-20189:34 TSH (THYROID STIMULATING Comments: PATIENT NOT FASTINGPERFORMED BY: [facility]CoSaint [facility] at DoverQugvpo3193 [facility] [id number] HORMONE) (68224) TSH 2.580 {uIU/mL} (Normal) Range: 0.450-4.500 :10 LIPID PANEL (85800) Comments: PATIENT WAS FASTINGPERFORMED BY: [facility]CoSaint [facility] DoverOxpuuw3846 [facility] [id number] LDL/HDL Ratio 2.2 {ratio_units} (Normal) Range: 0.0-3.6 Comments: LDL/HDL Ratio Men Women 1/2 Avg.Risk 1.0 1.5 Av g.Risk 3.6 3.2 2X Avg.Risk 6.2 5.0 3X Avg.Risk 8.0 6.1 LDL Cholesterol Calc 96 mg/dL (Normal) Range: 0-99 VLDL Cholesterol Johnny 14 mg/dL (Normal) Range: 5-40 HDL Cholesterol 43 mg/dL (Normal) Triglycerides 71 mg/dL (Normal) Range: 0-149 Cholesterol, Total 153 mg/dL (Normal) Range: 100-199 79-Bvx-77402:38 TSH (05995) Comments: PATIENT NOT FASTINGPERFORMED BY: [facility] Fipfnl9847 [address] [place] [id number] Information: [id number] TSH 2.480 {uIU/mL} (Normal) Range: 0.450-4.500 7-Gkn-022660:23 AFB Stain AND Cytology Comments: [facility] [address] [place], [place], [id number] ACID FAST STAIN SEE PATHOLOGY REPORT (Normal) Comments: Specimen submitted to Anatomical Pathology Department fortesting. CYTOLOGY,BF/CSF SEE PATHOLOGY REPORT (Normal) Comments: Specimen submitted to Anatomical Pathology Department fortesting. 7-Ftu-245503:22 Basic Metabolic Profile (BMP) Comments: [facility] [address] [place], [place], [id number] GAP 7 (Normal) Range: 5-15 CO2 26.0 [...] 7-18 GLU 90 mg/dL (Normal) Range: 70-110 8-Xlb-655247:22 Liver Profile Comments: [facility] [address] [place], [place], [address] D BILI 0.11 mg/dL (Normal) Range: 0.00-0.30 T BILI 0.40 mg/dL (Normal) Range: 0.20-1.00 ALT 17 U/L (Normal) Range: 12-78 ALK P 102 U/L (Normal) Range: 50-136 AST 9 U/L (Abnormal) Range: 15-37 GLOB 4.5 g/dL (Abnormal) Range: 2.3-3.5 ALB 2.3 g/dL (Abnormal) Range: 3.4-5.0 T PROT 6.8 g/dL (Normal) Range: 6.4-8.2 1-Sof-440236:10 CHEST, PA AND LATERAL Comments: appt 02/26/12 [...] EDTElectronically Signed GP/GP Professional Interpretation Provided By: [facility], , To consult with a radiologist melissai ng this report, please call our [id number] line @ Dictated on 02/12/12 1503 by Agus Sol MDscribed on 02/13/12 1240 by ITS IMPORTSign by Arnie Sol MD on 2 1240 Sign by: Arnie Sol MD Plan of Care Name Dates Details Instructions History of empyema of pleura : Follow [...] class other than Chromatographic method, each procedure (24040)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 On: 12-Aug-20188:48 Request Drug Screen (7drug + Alcohol) (08589)Indication: Attention disturbance On: 4-Uuc-085984:10 Request CALCIFEDIOL (66762)Indication: Vitamin D deficiency On: 14-Jul-20189:00 Request Planned Encounters Medical; 2 Week FU - On: 12-Sep-2018 8:15 [facility] Tracy Bean CNP Medical; 3 Month FU - On: 17-Nov-2018 8:30 [facility] Tracy Bean CNP Medical; ADD EST VISIT - On: 06-Feb-2019 7:00 [facility] Rashmi Boykin MD Planned Procedures CHEST XRAY, PA & LATERAL On: 26-Aug-2018 Intent (30090)By: Tracy Bean CNP Aerosol Treatment (13786)By: On: 26-Aug-2018 Intent Tracy Bean CNP Spirometry (11203)By: Vikas CHRISTOPHER, On: 26-Aug-2018 Intent Tracy Ward Comments: Severe airway obstruction a little easier after aerosol Flu Vaccine (Quadrivalent) On: 11-Jul-2018 Intent 20812Qs: Tracy Bean CNP Comments: Lot #[id number]-L dltd, IMDose prefilled syringegiven by:FRANCISCA Venegas reviewed and ABN signed Radiology - Chest- PA and LatBy: On: 08-Aug-2017 Intent Jacqueline Ramirez DO, DO, Kathleen Flu Vaccine (Quadrivalent) On: 08-Aug-2017 Intent 97835Aw: Jacqueline Ramirez DO Comments: Lot:[id number]/22Amt:0.5mlRoute:IMSite: L DltdGiven By: Milagros SALES signed Jacqueline Ramirez DO Radiology - ChestBy: Teresasukijoe CHRISTOPHER, On: 23-Oct-2016 Intent Tracy Ward Radiology - ChestBy: Teresasukijoe CHRISTOPHER, On: 21-Sep-2016 Intent Tracy Ward Comments: history of Rt lung abcess Wax CurettesBy: Teresasukijoe CHRISTOPHER Tracy Ward On: 21-Sep-2016 Intent Aerosol Treatment (98763)By: On: 21-Sep-2016 Intent Teresasukijoe CHRISTOPHER Tracy Ward Flu Vaccine (Quadrivalent) On: 06-Jul-2016 Intent 43092Vk: Jacqueline Ramirez DO Comments: Lot:[id number]/05/17Dose:0.5mLRoute:IMSite:L DltdGiven By:Inocente signed Jacqueline Ramirez DO Wax Currettes (59100)By: Jose Francisco On: 26-Sep-2015 Intent HORACE, Yaima Ear Irrigation (20675)By: Danial On: 26-Sep-2015 Intent Lina FLORES Comments: Large amount of wax removed from both earsdark yellow in colortolerated HORACE tobar Radiology - ChestBy: Ashutosh BUENO, On: 25-Aug-2015 Intent Rashmi Ruby Comments: A/P if not betgter in 2 weeks Spirometry (11439)By: Danial FLORES, On: 26-Feb-2012 Intent Lina A Comments: good effor tand curve mod obst Inhaler Demo (78253)By: Danial FLORES, On: 26-Feb-2012 Intent Lina Burger PFT - CompleteBy: Lina Barrow DO On: 26-Feb-2012 Intent A Spirometry (94315)By: Danial FLORES, On: 12-Feb-2012 Intent Lina A Comments: good effort flat curve mod obst Radiology - Chest- PA and LatBy: On: 12-Feb-2012 Intent Lina Barrow DO Aerosol Treatment (89063)By: Danial On: 12-Feb-2012 Intent DO Lina A Pulse Oximetry (36026)By: On: 12-Feb-2012 Intent Libertad Melchor Aerosol Treatment (01197)By: On: 28-Jan-2012 Intent Vikas CHRISTOPHER Tracy Ward Wax CurettesBy: Tracy Bean CNP On: 28-Jan-2012 Intent Ear Irrigation (19263)By: Vikas On: 28-Jan-2012 Intent Tracy CHRISTOPHER Instructions [...] Instructions Indication: Cough Encounters Office Visit On: 26-Aug-2018 9:05 Encounter Reason: [...] (786.2), Wheezing (786.07) [facility] Center[facility]; joe guarantor
--- OUTSIDE RECORDS SUMMARY | 2018-11-02 05:47 | XMS RPT_ITS | Continuity of Care Document ---
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 Jackson in [facility]. Status: Active Vitamin D deficiency (E55.9, 268.9) Status: Active Medications Name Dates Details Adderall XR 20 MG Oral Capsule Extended Release 24 Hour 1 (one) Capsule bid for 0 days Quantity: 60 {Capsule} Refills: 0 Ordered:22-Jul-2018 JOHANNA Bentley Start : 22-Jul-2018 Active Comments:sixty DX: R41.840 Note: increase in dose CeleXA 20 MG Oral Tablet 1 (one) [...] 30-2-10 MG/5ML Oral Syrup 10 Milliliter Milliliter d1xhjah cough for 0 days Quantity: 120 {Milliliter} [...] and Lateral Result: Comments: See Note; NOTES: [facility] Imaging Services [address] [place] [address] Chest PA and Lateral MR#: [id number] Acct: [id number] Name: BROOKE PENN Rep #: [id number] : 1985 M 32 From: Nazario Cardona DO PCP: Jacqueline Ramirez DO Status: REG CLI Study: Chest PA and Lateral Date of Exam: 08/08/17 Exam# [id number] Ordering Dr: Jacqueline Ramirez DO STUDY: X-RAY [...] Nazario Cardona DO at 18:10 EDT Tel [phone], Service support , CC: Jacqueline Ramirez DO Beverage Manager: Signed 22-Oct-2016 Chest PA and Lateral Result: Comments: See Note; NOTES: [facility] Imaging Services [address] [place] [address] Verdana 4d Chest PA and Lateral MR#: [id number] Acct: [id number] Name: BROOKE PENN Ace Rep #: [id number] : 1985 31 From: Arnie Sol MD PCP: Jaqcueline Ramirez DO Status: REG CLI Study: Chest PA and Lateral Date of Exam: 10/22/16 Exam# [id number] Ordering Dr: Tracy Bean STUDY: X-RAY CHEST [...] Arnie Sol MD at 12:17 EST Tel [phone], Service support [phone], CC: Tracy Bean; Jacqueline Ramirez DO Beverage Manager: Signed 21-Sep-2016 Chest PA and Lateral Result: Comments: See Note; NOTES: [facility] Imaging Services [address] [place] [address] Verdana 4d Chest PA and Lateral MR#: [id number] Acct: [id number] Name: BROOKE PENN Rep #: [id number] : 1985 M 31 From: Arnie Sol MD PCP: Jacqueline Ramirez DO Status: REG CLI Study: Chest PA and Lateral Date of Exam: 09/21/16 Exam# [id number] Ordering Dr: Tracy Bean STUDY: X-RAY CHEST [...] Arnie Sol MD at 9:36 EST Tel [phone], Service support [phone], Fax CC: Tracy Bean; Jacqueline Ramirez DO Beverage Manager: Signed 12-Apr-2016 Spirometry (49083) Comments: roxann Result: 07-Sep-2015 Emergency Department Summary Result: Comments: See Note; NOTES: [facility] Medical Records Department [address] [place] [address] Emergency Department Summary MR#: [id number] Acct: [id number] Name: BROOKE PENN Rep #: [id number] : 1985 30 From: Edgardo Arrington MD [...] the patient options. I initially ca lled [facility] per his choice. They currently are out of beds, so I will talk to [facility] about a transfer. He was initially started on Rocephin and Zithromax. Labs and cultures are pending. Edgardo Arrington MD C C: Rashmi Boykin MD T: [facility] JOB: [id number] 09/07/15 7643 <Electronically signed by Edgardo Arrington MD> Date Edgardo Arrington MD Cosigner Signature (If Indicated): Date CC: Rashmi Boykin MD Date Dictated: 09/07/151351 D ate Transcribed: 09/07/151351 Beverage Manager: Signed 07-Sep-2015 Chest WITH Contrast Result: Comments: See Note; NOTES: [facility] Imaging Services [address] [place] [address] Verdana 4d Chest WITH Contrast MR#: [id number] Acct: [id number] Name: DAVID PENN Rep #: [id number] : 1985 M 30 From: Arnie Sol MD PCP: Rashmi Boykin MD Status: REG ER Study: Chest WITH Contrast Date of Exam: 09/07/15 Exam# [id number] Ordering Dr: Jose Arrington MD STUDY: CT [...] Arnie Sol MD at 13:25 EST Tel [phone], Service support [phone], CC: Rashmi Boykin MD; Edgardo Arrington MD Beverage Manager: Signed 07-Sep-2015 Chest PA and Lateral Result: Comments: See Note; NOTES: [facility] Imaging Services [address] [place] [address] Vermarlin 4d Chest PA and Lateral MR#: [id number] Acct: [id number] Name: Milagros PENN R Rep #: [id number] : 1985 30 From: Arnie Sol MD PCP: Rashmi Boykin MD Status: REG CLI Study: Chest PA and Lateral Date of Exam: 09/07/15 Exam# [id number] Ordering Dr: Rashmi Boykin MD STUDY: X-RAY [...] Arnie Sol MD at 9:24 EST Tel [phone], Service support [phone], RAD/Chest PA and Lateral IMPRESSION: There is almost complete opacification of the right hemithorax suggestive of a pleural effusion with underlying pneumonic infiltration. Co arse and increased markings in the right upper lobe with areas of confluence. Tuberculosis should be ruled out. Electronically Signed: Arnie Sol MD at 9:24 EST Tel [phone] , Service support [phone], CC: Rashmi Boykin MD Beverage Manager: Signed 25-Aug-2015 Spirometry (57225) Result: 25-Aug-2015 Spirometry (52616) Comments: see scanned document of test done to see results reviewed today with patient pt not able to coordinate Result: [Preliminary Information] Sensor Calibration Date: 01/24/2015; Sensor SN: [id number]; Pressure: 760; Temperature: 21.2579092142964 [Pre-Bronchodilator] FVC: 1.01317681012811; FEV (0.5 secs): 0.2029647227 62241; FEV (1.0 sec): 0.357604691996868; FEV (3.0 secs): 1.48269405588527; FEV (6.0 secs): 0; FEV (1.0 sec) / FVC: 68.8432825385976; FEV (3.0 secs) / FVC: 99.0429442658372; FEV (1.0 sec) / FEV (6.0 secs ): 0; FEF (25-75%): 0; FEF (75-85%): 0.72700005632418; PEF: 1.45146165149380; FEF (25%): 0; FEF (75%): 0.591219032029625; FEF (200-1200): 0; EXP TIME: 3.07888269967106; Best FVC: 1.6691284680340; Best F EV (1.0 sec): 0.058779437586157; V ext.: -0.672724990942344; FIVC: 0.489767133163242; FIV (0.5 sec): 0.871523365385633; FEV (0.5 secs) / FIV (0.5 secs): 77.6632148165732; FIF (50%): 2.8402507169346; FEF (50%) / FIF (50%): 26.6351197981805; MVV: 0; MTV: 0; RR: 0; MVV [...] smoker Vital Signs Date Test Result Details :35 Temperature 98.8 f Comments: Method: Temporal [...] Auto Diff Comments: PATIENT NOT FASTINGPERFORMED BY: TASHA [facility] Vfxotu3421 [facility] [id number] ([id number]) Immature Grans (Abs) 0.0 {x10E3/uL} (Normal) Range: [...] 4.14-5.80 WBC 6.8 {x10E3/uL} (Normal) Range: 3.4-10.8 11-Jul-20189:34 CALCIFEDIOL (38307) Comments: PATIENT NOT FASTINGPERFORMED BY: [facility] [facility] [id number] Vitamin D, 25-Hydroxy 15.4 ng/mL (Abnormal) Range: 30.0-100.0 Comments: Vitamin D deficiency has been defined by the Endeavor ofMedicine and an Endocrine Society practice guideline as alevel of serum 25-OH vitamin D less than 20 ng/mL (1,2).The Endocrine Society went on to further define vitamin Dinsufficiency as a level between 21 and 29 ng/mL (2).1. IOM (Endeavor of Medicine). 2010. Dietary reference intakes for calcium and D. [place]: The National Academies Press.2. Megan GORDON, Arsenio LOVETT, Remy LOVING, et al. Evaluation, treatment, and prevention of vitamin D deficiency: an Endocrine Society clinical practice guideline. JCEM. 2010; 96(7):1911-30. :34 VITAMIN B12 AND FOLATES Comments: PATIENT NOT FASTINGPERFORMED BY: [employer] [id number] [facility] [id number] ([id number]) Folate (Folic Acid), Serum 6.0 ng/mL (Normal) Comments: A serum folate concentration of less than 3.1 ng/mL isconsidered to represent clinical deficiency. Vitamin B12 444 pg/mL (Normal) Range: 232-1245 :34 Metabolic Panel, Comprehensive Comments: PATIENT NOT FASTINGPERFORMED BY: Lorena GaxiolaI-70 [facility] HospitalRxusfh1790 [facility] [id number] (61173) ALT (SGPT) 11 [iU]/L (Normal) Range: 0-44 [...] (THYROID STIMULATING Comments: PATIENT NOT FASTINGPERFORMED BY: [address] [id number] HORMONE) (25618) TSH 2.580 {uIU/mL} (Normal) Range: 0.450-4.500 15-Yhj-63412:10 LIPID PANEL (15133) Comments: PATIENT WAS FASTINGPERFORMED BY: [address] [id number] LDL/HDL Ratio 2.2 {ratio_units} (Normal) Range: 0.0-3.6 Comments: LDL/HDL Ratio Men Women 1/2 Avg.Risk 1.0 1.5 Av g.Risk 3.6 3.2 2X Avg.Risk 6.2 5.0 3X Avg.Risk 8.0 6.1 LDL Cholesterol Calc 96 mg/dL (Normal) Range: 0-99 VLDL Cholesterol Johnny 14 mg/dL (Normal) Range: 5-40 HDL Cholesterol 43 mg/dL (Normal) Triglycerides 71 mg/dL (Normal) Range: 0-149 Cholesterol, Total 153 mg/dL (Normal) Range: 100-199 05-Qoq-94902:38 TSH (26161) Comments: PATIENT NOT FASTINGPERFORMED BY: [address] [id number] Information: [id number] TSH 2.480 {uIU/mL} (Normal) Range: 0.450-4.500 8-Nvs-437878:23 AFB Stain AND Cytology Comments: [facility] [address] [place], [place], [id number] ACID FAST STAIN SEE PATHOLOGY REPORT (Normal) Comments: Specimen submitted to Anatomical Pathology Department fortesting. CYTOLOGY,BF/CSF SEE PATHOLOGY REPORT (Normal) Comments: Specimen submitted to Anatomical Pathology Department fortesting. 9-Thq-159873:22 Basic Metabolic Profile (BMP) Comments: [facility] [address] [place], [address] GAP 7 (Normal) Range: 5-15 CO2 26.0 [...] 7-18 GLU 90 mg/dL (Normal) Range: 70-110 2-Wxc-678204:22 Liver Profile Comments: [facility] [address] [place], [address] D BILI 0.11 mg/dL (Normal) Range: 0.00-0.30 T BILI 0.40 mg/dL (Normal) Range: 0.20-1.00 ALT 17 U/L (Normal) Range: 12-78 ALK P 102 U/L (Normal) Range: 50-136 AST 9 U/L (Abnormal) Range: 15-37 GLOB 4.5 g/dL (Abnormal) Range: 2.3-3.5 ALB 2.3 g/dL (Abnormal) Range: 3.4-5.0 T PROT 6.8 g/dL (Normal) Range: 6.4-8.2 2-Gsq-418586:10 CHEST, PA AND LATERAL Comments: appt 02/26/12 [...] EDTElectronically Signed GP/GP Professional Interpretation Provided By: [facility], , To consult with a radiologist regardi ng this report, please call our [id number] line @ Dictated on 02/12/12 1503 by Ebenezer BUENO,Malenaranscribed on 02/13/12 1240 by ITS IMPORTSign by [...] Planned Observations Drug Screen (7drug + Alcohol) (84899)Indication: Attention disturbance On: 5-Kdo-716805:10 Request CALCIFEDIOL (59290)Indication: Vitamin D deficiency On: 14-Jul-20189:00 Request Planned Encounters Medical; ADD EST VISIT - On: 12-Aug-2018 8:00 [facility] Ashutosh BUENO, Rashmi Ruby Planned Procedures Flu Vaccine (Quadrivalent) On: 11-Jul-2018 Intent 88198He: Tarcy Bean CNP Comments: Lot #[id number]-L dltd, IMDose prefilled syringegiven by:FRANCISCA Venegas reviewed and ABN signed Radiology - Chest- PA and On: 08-Aug-2017 Intent LatBy: Jacqueline Ramirez DO, DO, Kathleen Flu Vaccine (Quadrivalent) On: 08-Aug-2017 Intent 88148Rm: Jacqueline Ramirez DO Comments: Lot:[id number]:01/22Amt:0.5mlRoute:IMSite: L DltdGiven By: Milagros SALES signed Jacqueline Ramirez DO Radiology - ChestBy: Vikas CHRISTOPHER, On: 23-Oct-2016 Intent Tracy Ward Radiology - ChestBy: Vikas CHRISTOPHER, On: 21-Sep-2016 Intent Tracy Ward Comments: history of Rt lung abcess Wax CurettesBy: Tracy Bean CNP On: 21-Sep-2016 Intent E Aerosol Treatment (39794)By: On: 21-Sep-2016 Intent Tracy Bean CNP Flu Vaccine (Quadrivalent) On: 06-Jul-2016 Intent 59071Rx: Jacqueline Ramirez DO Comments: Lot:[id number]:04/05/17Dose:0.5mLRoute:IMSite:L DltdGiven By:Inocente signed AshleyJacqueline duarte DO Wax Currettes (57615)By: Jose Francisco On: 26-Sep-2015 Intent Yaima VU Ear Irrigation (04983)By: Danial On: 26-Sep-2015 Intent DO Lina A Comments: Large amount of wax removed from both earsdark yellow in colortolerated HORACE tobar Radiology - ChestBy: Maggiei On: 25-Aug-2015 Intent Rashmi BUENO Comments: A/P if not betgter in 2 weeks Spirometry (92210)By: Danial FLORES, On: 26-Feb-2012 Intent Lina A Comments: good effor tand curve mod obst Inhaler Demo (68819)By: Danial On: 26-Feb-2012 Intent DO, Lina A PFT - CompleteBy: Danial FLORES, On: 26-Feb-2012 Intent Lina A Spirometry (40526)By: Danial FLORES, On: 12-Feb-2012 Intent Lina A Comments: good effort flat curve mod obst Radiology - Chest- PA and On: 12-Feb-2012 Intent LatBy: Danial FLORES Lina A Aerosol Treatment (82821)By: On: 12-Feb-2012 Intent Danial FLORES Lina A Pulse Oximetry (62500)By: On: 12-Feb-2012 Intent Flinner, [place] Aerosol Treatment (94405)By: On: 28-Jan-2012 Intent Tracy Bean CNP Wax CurettesBy: Tracy Bean CNP On: 28-Jan-2012 Intent E Ear Irrigation (06654)By: On: 28-Jan-2012 Intent Tracy Bean CNP Instructions Name Dates Details Attention disturbance : [...] Cough : Patient Instructions Indication: Cough Encounters Phone Encounter On: 22-Jul-2018 15:58 Encounter Diagnosis: [...] (786.2), Wheezing (786.07) [facility]; joe guarantor
--- OUTSIDE RECORDS SUMMARY | 2018-11-02 05:48 | XMS RPT_ITS | Continuity of Care Document ---
:1985 Author Organization [facility] Address [facility] [address] [place] [address] Phone Care Team Providers Name Role Phone Jacqueline Ramirez DO Unavailable Cisukia LOGGING ASSISTANT, Tracy Ward Unavailable Yarelis Rao Unavailable Unavailable Ashutosh BUENO, Rashmi Ruby Unavailable Slarb PRODUCT TECHNICIAN, Yaima Unavailable Unavailable Long PRODUCT TECHNICIAN, Erum L Unavailable Unavailable Unavailable Unavailable Problems Name Dates Details Abnormal chest xray (R93.89, 793.2) Comments: chest xray reveal complete opacificataion of right hemithorax suggestive of pleural effusion, coarse and increased markings in right upper lobe with areas of confluence, TB should be ruled out Status: Active 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 meds working well. 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 Jackson in [facility]. Status: Active Vitamin D deficiency [...] days Quantity: 30 {Tablet} Refills: 6 Ordered:27-Mar-2018 Ashley DO, Jacqueline Pacheco DO Start : 27-Mar-2018 Active ZyrTEC Allergy 10 [...] 30-2-10 MG/5ML Oral Syrup 10 Milliliter Milliliter w8aomuf cough for 0 days Quantity: 120 {Milliliter} [...] days Quantity: 60 {Tablet} Refills: 0 Ordered:12-Apr-2016 Dorsi Braxton LPN Start : 26-Sep-2015 End : [...] and Lateral Result: Comments: See Note; NOTES: [facility] Imaging Services [address] [place] [address] Chest PA and Lateral MR#: [id number] Acct: [id number] Name: BROOKE PENN Rep #: [id number] : 1985 M 32 From: Nazario Cardona DO PCP: Jacqueline Ramirez DO Status: REG CLI Study: Chest PA and Lateral Date of Exam: 08/08/17 Exam# [id number] Ordering Dr: Jacqueline Ramirez DO STUDY: X-RAY [...] Nazario Cardona DO at 18:10 EDT Tel [phone], Service support , CC: Jacqueline Ramirez DO Retail Selling Floor Leader: Signed 22-Oct-2016 Chest PA and Lateral Result: Comments: See Note; NOTES: [facility] Imaging Services [address] [place] [address] Verdana 4d Chest PA and Lateral MR#: [id number] Acct: [id number] Name: BROOKE PENN Rep #: [id number] : 1985 M 31 From: Arnie Sol MD PCP: Jacqueline Ramirez DO Status: REG CLI Study: Chest PA and Lateral Date of Exam: 10/22/16 Exam# [id number] Ordering Dr: Tracy Bean STUDY: X-RAY CHEST [...] Arnie Sol MD at 12:17 EST Tel [phone], Service support [phone], CC: Tracy Bean; Jacqueline Ramirez DO Retail Selling Floor Leader: Signed 21-Sep-2016 Chest PA and Lateral Result: Comments: See Note; NOTES: [facility] Imaging Services [address] [place] [address] Verdana 4d Chest PA and Lateral MR#: [id number] Acct: [id number] Name: BROOKE PENN Rep #: [id number] : 1985 M 31 From: Arnie Sol MD PCP: Jacqueline Ramirez DO Status: REG CLI Study: Chest PA and Lateral Date of Exam: 09/21/16 Exam# [id number] Ordering Dr: Tracy Bean STUDY: X-RAY CHEST [...] Arnie Sol MD at 9:36 EST Tel [phone], Service support [phone], Fax CC: Tracy Bean; Jacqueline Ramirez DO Retail Selling Floor Leader: Signed 12-Apr-2016 Spirometry (64066) Comments: roxann Result: 07-Sep-2015 Emergency Department Summary Result: Comments: See Note; NOTES: [facility] Medical Records Department [address] [place] [address] Emergency Department Summary MR#: [id number] Acct: [id number] Name: BROOKE PENN Rep #: [id number] : 1985 30 From: Edgardo Arrington MD PCP: Rashmi Boykin MD Status: [facility] ER DATE OF SERVICE: 09/07/2015 CHIEF COMPLAINT: [...] the patient options. I initially ca lled [facility] [place] per his choice. They currently are out of beds, so I will talk to [facility] about a transfer. He was initially started on Rocephin and Zithromax. Labs and cultures are pending. MD Octavia Pina C: Rashmi Boykin MD T: [facility] JOB: [id number] 09/07/15 0722 <Electronically signed by Edgardo Arrington MD> Date Edgardo Olivoigneverette Signature (If Indicated): Date CC: Rashmi Boykin MD Date Dictated: 09/07/15 1352 D ate Transcribed: 09/07/151351 Retail Selling Floor Leader: Signed 07-Sep-2015 Chest WITH Contrast Result: Comments: See Note; NOTES: [facility] Imaging Services [address] [place] [address] Verdana 4d Chest WITH Contrast MR#: [id number] Acct: [id number] Name: DAVID PENN Rep #: [id number] : 1985 30 From: Arnie Sol MD PCP: Rashmi Boykin MD Status: REG ER Study: Chest WITH Contrast Date of Exam: 09/07/15 Exam# [id number] Ordering Dr: Jose Arrington MD STUDY: CT [...] Arnie Sol MD at 13:25 EST Tel [phone], Service support [phone], CC: Rashmi Boykin MD; Edgardo Arrington MD Retail Selling Floor Leader: Signed 07-Sep-2015 Chest PA and Lateral Result: Comments: See Note; NOTES: [facility] Imaging Services [address] [place] [address] Veranna maria 4d Chest PA and Lateral MR#: [id number] Acct: [id number] Name: Milagros PENN R Rep #: [id number] : 1985 30 From: Arnie Sol MD PCP: Rashmi Boykin MD Status: REG CLI Study: Chest PA and Lateral Date of Exam: 09/07/15 Exam# [id number] Ordering Dr: Rashmi Boykin MD STUDY: X-RAY [...] Arnie Sol MD at 9:24 EST Tel [phone], Service support [phone], RAD/Chest PA and Lateral IMPRESSION: There is almost complete opacification of the right hemithorax suggestive of a pleural effusion with underlying pneumonic infiltration. Co arse and increased markings in the right upper lobe with areas of confluence. Tuberculosis should be ruled out. Electronically Signed: Arnie Sol MD at 9:24 EST Tel [phone] , Service support [phone], CC: Rashmi Boykin MD Retail Selling Floor Leader: Signed 25-Aug-2015 Spirometry (71753) Result: 25-Aug-2015 Spirometry (57271) Comments: see scanned document of test done to see results reviewed today with patient pt not able to coordinate Result: [Preliminary Information] Sensor Calibration Date: 01/24/2015; Sensor SN: [id number]; Pressure: 760; Temperature: 21.6734260811807 [Pre-Bronchodilator] FVC: 1.26273676605812; FEV (0.5 secs): 0.3592923720 66883; FEV (1.0 sec): 0.742632924337497; FEV (3.0 secs): 1.57723396015073; FEV (6.0 secs): 0; FEV (1.0 sec) / FVC: 68.6789377566707; FEV (3.0 secs) / FVC: 99.7951611363844; FEV (1.0 sec) / FEV (6.0 secs ): 0; FEF (25-75%): 0; FEF (75-85%): 0.42888397795975; PEF: 1.14703509575128; FEF (25%): 0; FEF (75%): 0.905608702347004; FEF (200-1200): 0; EXP TIME: 3.95275747940848; Best FVC: 1.0349326679922; Best F EV (1.0 sec): 0.634299298329234; V ext.: -0.965011517795346; FIVC: 0.769953688299015; FIV (0.5 sec): 0.662168268243303; FEV (0.5 secs) / FIV (0.5 secs): 77.5283194376212; FIF (50%): 2.3846581825677; FEF (50%) / FIF (50%): 26.1792693743041; MVV: 0; MTV: 0; RR: 0; MVV [...] Diff Comments: PATIENT NOT FASTINGPERFORMED BY: [facility] Xhfdvv3763 [facility] [id number] ([id number]) Immature Grans (Abs) 0.0 {x10E3/uL} (Normal) Range: [...] 6.8 {x10E3/uL} (Normal) Range: 3.4-10.8 :34 CALCIFEDIOL (61005) Comments: PATIENT NOT FASTINGPERFORMED BY: [facility] Vtthbl9645 [facility] [id number] Vitamin D, 25-Hydroxy 15.4 ng/mL (Abnormal) Range: 30.0-100.0 Comments: Vitamin D deficiency has been defined by the [place] [facility] and an Endocrine Society practice guideline as alevel of serum 25-OH vitamin D less than 20 ng/mL (1,2).The Endocrine Society went on to further define vitamin Dinsufficiency as a level between 21 and 29 ng/mL (2).1. IOM ([place] of Medicine). 2010. Dietary reference intakes for calcium and D. [place]: The National Academies Press.2. Megan MF, Arsenio LOVETT, Remy LOVING, et al. Evaluation, treatment, and prevention of vitamin D deficiency: an Endocrine Society clinical practice guideline. JCEM. 2010; 96(7):1911-30. :34 VITAMIN B12 AND FOLATES Comments: PATIENT NOT FASTINGPERFORMED BY: [facility] Oxynar3214 [facility] [id number] (85161) Folate (Folic Acid), Serum 6.0 ng/mL (Normal) Comments: A serum folate concentration of less than 3.1 ng/mL isconsidered to represent clinical deficiency. Vitamin B12 444 pg/mL (Normal) Range: 232-1245 :34 Metabolic Panel, Comprehensive Comments: PATIENT NOT FASTINGPERFORMED BY: [facility] Bovljw7641 [facility] [id number] (70233) ALT (SGPT) 11 [iU]/L (Normal) Range: 0-44 [...] (THYROID STIMULATING Comments: PATIENT NOT FASTINGPERFORMED BY: [employer] Ssqatl2256 [facility] [id number] HORMONE) (02985) TSH 2.580 {uIU/mL} (Normal) Range: 0.450-4.500 :10 LIPID PANEL (69634) Comments: PATIENT WAS FASTINGPERFORMED BY: [employer] Fezjjv0881 [facility] [id number] LDL/HDL Ratio 2.2 {ratio_units} (Normal) Range: 0.0-3.6 [...] 153 mg/dL (Normal) Range: 100-199 :38 TSH (42842) Comments: PATIENT NOT FASTINGPERFORMED BY: [facility] CampusPysnhs[address] [place] [id number] Information: 787906,G62738 TSH 2.480 {uIU/mL} (Normal) Range: 0.450-4.500 0-Mrl-247271:23 AFB Stain AND Cytology Comments: [facility] [address] [place], [address] ACID FAST STAIN SEE PATHOLOGY REPORT (Normal) Comments: Specimen submitted to Anatomical Pathology Department fortesting. CYTOLOGY,BF/CSF SEE PATHOLOGY REPORT (Normal) Comments: Specimen submitted to Anatomical Pathology Department fortesting. 8-Buw-681907:22 Basic Metabolic Profile (BMP) Comments: [facility] [address] [place], [address] GAP 7 (Normal) Range: 5-15 [...] 7-18 GLU 90 mg/dL (Normal) Range: 70-110 1-Jga-695808:22 Liver Profile Comments: [facility] [address] [place], [address] D BILI 0.11 mg/dL (Normal) Range: 0.00-0.30 T BILI 0.40 mg/dL (Normal) Range: 0.20-1.00 ALT 17 U/L (Normal) Range: 12-78 ALK P 102 U/L (Normal) Range: 50-136 AST 9 U/L (Abnormal) Range: 15-37 GLOB 4.5 g/dL (Abnormal) Range: 2.3-3.5 ALB 2.3 g/dL (Abnormal) Range: 3.4-5.0 T PROT 6.8 g/dL (Normal) Range: 6.4-8.2 2-Vdc-680213:10 CHEST, PA AND LATERAL Comments: appt 02/26/12 [...] EDTElectronically Signed GP/GP Professional Interpretation Provided By: [facility], , To consult with a radiologist melissai ng this report, please call our [id number] line @ Dictated on 02/12/12 1503 by [...] class other than Chromatographic method, each procedure (52409)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 On: 12-Aug-20188:48 Request Drug Screen (7drug + Alcohol) (01739)Indication: Attention disturbance On: 4-Iel-952957:10 Request CALCIFEDIOL (15373)Indication: Vitamin D deficiency On: 14-Jul-20189:00 Request Planned Encounters Medical; 3 Month FU - On: 17-Nov-2018 8:30 [facility] Vikas CHRISTOPHER [facility]; ADD EST VISIT - On: 06-Feb-2019 7:00 [facility] Ashutosh BUENO, Rashmi Ruby Planned Procedures Flu Vaccine (Quadrivalent) On: 11-Jul-2018 Intent 44469Uo: Vikas ASHWINTracy Comments: Lot #[id number]-L dltd, IMDose prefilled syringegiven by:FRANCISCA Venegas reviewed and ABN signed Radiology - Chest- PA and On: 08-Aug-2017 Intent LatBy: Jacqueline Ramirez DO, DO, Kathleen Flu Vaccine (Quadrivalent) On: 08-Aug-2017 Intent 06437Nk: Jacqueline Ramirez DO Comments: Lot:[id number]:01/22Amt:0.5mlRoute:IMSite: L DltdGiven By: Milagros SALES signed Jacqueline Ramirez DO Radiology - ChestBy: Lizbethjoe CHRISTOPHER, On: 23-Oct-2016 Intent Tracy Ward Radiology - ChestBy: Lizbethjoe CHRISTOPHER, On: 21-Sep-2016 Intent Tracy Ward Comments: history of Rt lung abcess Wax CurettesBy: Tracy Bean CNP On: 21-Sep-2016 Intent E Aerosol Treatment (58031)By: On: 21-Sep-2016 Intent Lizbethjoe Tracy CHRISTOPHER Flu Vaccine (Quadrivalent) On: 06-Jul-2016 Intent 47135Ln: Jacqueline Ramirez DO Comments: Lot:[id number]:04/05/17Dose:0.5mLRoute:IMSite:L DltdGiven By:Inocente signed Jacqueline Ramirez DO Wax Currettes (55675)By: Jose Francisco On: 26-Sep-2015 Intent Yaima VU Ear Irrigation (72403)By: Danial On: 26-Sep-2015 Intent Lina FLORES A Comments: Large amount of wax removed from both earsdark yellow in colortolerated amadouHORACE Radiology - ChestBy: Bonezzi On: 25-Aug-2015 Intent Rashmi BUENO Comments: A/P if not betgter in 2 weeks Spirometry (77209)By: Danial FLORES, On: 26-Feb-2012 Intent Lina A Comments: good effor tand curve mod obst Inhaler Demo (08118)By: Danial On: 26-Feb-2012 Intent Lina FLORES A PFT - CompleteBy: Danial FLORES, On: 26-Feb-2012 Intent Lina A Spirometry (51381)By: Danial FLORES, On: 12-Feb-2012 Intent Lina A Comments: good effort flat curve mod obst Radiology - Chest- PA and On: 12-Feb-2012 Intent LatBy: Lina Barrow DO A Aerosol Treatment (73553)By: On: 12-Feb-2012 Intent Lina Barrow DO A Pulse Oximetry (58289)By: On: 12-Feb-2012 Intent Libertad Melchor Aerosol Treatment (54731)By: On: 28-Jan-2012 Intent Tracy Bean CNP Wax CurettesBy: Tracy Bean CNP On: 28-Jan-2012 Intent E Ear Irrigation (06294)By: On: 28-Jan-2012 Intent Tracy Bean CNP Instructions [...] Instructions Indication: Cough Encounters Office Visit On: 12-Aug-2018 8:35 Encounter Reason: [...] difficult), short attention span, impulsive behavior, End: 8-Oct-2018 16:53 losing things and fidgeting (nail biting). [...] (786.2), Wheezing (786.07) [facility]; joe guarantor
--- OUTSIDE RECORDS SUMMARY | 2018-11-02 05:48 | XMS RPT_ITS | Continuity of Care Document ---
:1985 Author Organization [facility] Address [facility] [address] [place] [address] Phone Care Team Providers Name Role Phone Jacqueline Ramirez DO Unavailable Cisukia EXTENSION COURSE COORDINATORTracy Unavailable Long [facility] DIRECTOR, Erum L Unavailable Unavailable Slarb [facility] DIRECTOR, Yaima Unavailable Unavailable Unavailable Unavailable Problems Name Dates Details Abnormal chest xray (R93.8, 793.2) Comments: chest xray reveal complete opacificataion of right hemithorax suggestive of pleural effusion, coarse and increased markings in right upper lobe with areas of confluence, TB should be ruled out Status: Active 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 Filling out form and will send to Dr. Boykin, Will check basic labs today as well Status: Active BMI 22.0-22.9, adult (Z68.22, V85.1) [...] q 2 yrs, sees Dr. Jackson in [facility]. Status: Active Medications Name Dates Details CeleXA 20 MG Oral Tablet 1 (one) Tablet qhs for 0 days Quantity: 30 {Tablet} Refills: 6 Ordered:27-Mar-2018 Tara Ramirez DO, DO, Kathleen Start : 27-Mar-2018 Active ZyrTEC Allergy 10 MG Oral Tablet 1 (one) Tablet daily for 0 days Quantity: 30 {Tablet} Refills: 0 Ordered:11-Jul-2018 Tracy Bean CNP Start : 11-Jul-2018 Active Bromfed DM 30-2-10 MG/5ML Oral Syrup 10 Milliliter Milliliter p5qtpig cough for 0 days Quantity: 120 {Milliliter} Refills: 0 Ordered:08-Aug-2017 Doirs Braxton LPN Start : 21-Sep-2016 End : [...] days Quantity: 1 {Package} Refills: 0 Ordered:07-Sep-2015 Mc JOHANNA Start : 15-Apr-2015 End : 07-Sep-2015 Inactive ADVAIR DISKUS, 250-50MCG/DOSE (Inhalation Aerosol Powder Breath Activated) 1 Aero Pow Br Act puff bid then rinse out mouth for 0 days Quantity: 1 {Aero_Pow_Br_Act} Refills: 1 Ordered:15-Apr-2015 Jim VULeatha Start : 26-Feb-2012 End : 15-Apr-2015 Discontinued PredniSONE 10 MG (21) Oral Tablet Therapy Pack 1 (one) Tab Ther Pack 1 bid x 3 days, then 1 daily x 3 days, then 1/2 x 3 days for 0 days Quantity: 11 {Tablet} Refills: 0 Ordered:05-Oct-2016 Jose Francisco VUYaima Start : 25-Sep-2016 End : 05-Oct-2016 Discontinued [...] and Lateral Result: Comments: See Note; NOTES: [facility] Imaging Services [address] [place] [address] Chest PA and Lateral MR#: [id number] Acct: [id number] Name: BROOKE PENN Rep #: [id number] : 1985 32 From: Nazario Cardona DO PCP: Jacqueline Ramirez DO Status: REG CLI Study: Chest PA and Lateral Date of Exam: 08/08/17 Exam# [id number] Ordering Dr: Jacqueline Ramirez DO STUDY: X-RAY [...] Nazario Cardona DO at 18:10 EDT Tel [phone], Service support , CC: Jacqueline Ramirez DO Paint Line Production Supervisor: Signed 22-Oct-2016 Chest PA and Lateral Result: Comments: See Note; NOTES: [facility] Imaging Services [address] [place] [address] Verdana 4d Chest PA and Lateral MR#: [id number] Acct: [id number] Name: BROOKE PENN Rep #: [id number] : 1985 M 31 From: Arnie Sol MD PCP: Jacqueline Ramirez DO Status: REG CLI Study: Chest PA and Lateral Date of Exam: 10/22/16 Exam# [id number] Ordering Dr: Tracy Bean STUDY: X-RAY CHEST [...] Arnie Sol MD at 12:17 EST Tel [phone], Service support [phone], CC: Tracy Bean; Jacqueline Ramirez DO Paint Line Production Supervisor: Signed 21-Sep-2016 Chest PA and Lateral Result: Comments: See Note; NOTES: [facility] Imaging Services [address] [place] [address] Aldana 4d Chest PA and Lateral MR#: [id number] Acct: [id number] Name: BROOKE PENN Rep #: [id number] : 1985 31 From: Arnie Sol MD PCP: Jacqueline Ramirez DO Status: REG CLI Study: Chest PA and Lateral Date of Exam: 09/21/16 Exam# [id number] Ordering Dr: Tracy Bean STUDY: X-RAY CHEST [...] Arnie Sol MD at 9:36 EST Tel [phone], Service support [phone], Fax CC: Tracy Bean; Jacqueline Ramirez DO Paint Line Production Supervisor: Signed 12-Apr-2016 Spirometry (63488) Comments: roxann Result: 07-Sep-2015 Emergency Department Summary Result: Comments: See Note; NOTES: [facility] Medical Records Department [address] [place] [address] Emergency Department Summary MR#: [id number] Acct: [id number] Name: BROOKE PENN Rep #: [id number] : 1985 30 From: Edgardo Arrington MD [...] seen by Dr. Carlson, they obtained a [facility] x-ray. He basically had a [...] the patient options. I initially ca lled [facility] per his choice. They currently are out of beds, so I will talk to [facility] about a transfer. He was initially started on Rocephin and Zithromax. Labs and cultures are pending. MD Octavia Pina C: Rashmi Boykin MD T: NTS JOB: [id number] 09/07/15 1647 <Electronically signed by Edgardo Arrington MD> Date Edgardo Arrington MD Cosigner Signature (If Indicated): Date CC: Rashmi Boykin MD Date Dictated: 09/07/15 1352 D ate Transcribed: 09/07/151351 Paint Line Production Supervisor: Signed 07-Sep-2015 Chest WITH Contrast Result: Comments: See Note; NOTES: [facility] Imaging Services [address] [place] [address] Verdana 4d Chest WITH Contrast MR#: [id number] Acct: [id number] Name: DAVID PENN FANTA Bello Rep #: [id number] : 1985 M 30 From: Arnie Sol MD PCP: Rashmi Boykin MD Status: REG ER Study: Chest WITH Contrast Date of Exam: 09/07/15 Exam# [id number] Ordering Dr: Jose Arrington MD STUDY: CT [...] Arnie Sol MD at 13:25 EST Tel [phone], Service support [phone], CC: Rashmi Boykin MD; Edgardo Arrington MD Paint Line Production Supervisor: Signed 07-Sep-2015 Chest PA and Lateral Result: Comments: See Note; NOTES: [facility] Imaging Services [address] [place] [address] Verdana 4d Chest PA and Lateral MR#: [id number] Acct: [id number] Name: Milagros PENN R Rep #: [id number] : 1985 M 30 From: Arnie Sol MD PCP: Rashmi Boykin MD Status: REG CLI Study: Chest PA and Lateral Date of Exam: 09/07/15 Exam# [id number] Ordering Dr: Rashmi Boykin MD STUDY: X-RAY [...] Arnie Sol MD at 9:24 EST Tel [phone], Service support [phone], RAD/Chest PA and Lateral IMPRESSION: There is almost complete opacification of the right hemithorax suggestive of a pleural effusion with underlying pneumonic infiltration. Co arse and increased markings in the right upper lobe with areas of confluence. Tuberculosis should be ruled out. Electronically Signed: Arnie Sol MD at 9:24 EST Tel [phone] , Service support [phone], CC: Rashmi Boykin MD Paint Line Production Supervisor: Signed 25-Aug-2015 Spirometry (94480) Result: 25-Aug-2015 Spirometry (26161) Comments: see scanned document of test done to see results reviewed today with patient pt not able to coordinate Result: [Preliminary Information] Sensor Calibration Date: 01/24/2015; Sensor SN: [id number]; Pressure: 760; Temperature: 21.3091050384251 [Pre-Bronchodilator] FVC: 1.51507910532333; FEV (0.5 secs): 0.2790831232 50492; FEV (1.0 sec): 0.075633047697428; FEV (3.0 secs): 1.53407684046433; FEV (6.0 secs): 0; FEV (1.0 sec) / FVC: 68.2607147028404; FEV (3.0 secs) / FVC: 99.2249311991697; FEV (1.0 sec) / FEV (6.0 secs ): 0; FEF (25-75%): 0; FEF (75-85%): 0.32116988654717; PEF: 1.24852108803856; FEF (25%): 0; FEF (75%): 0.742524774301524; FEF (200-1200): 0; EXP TIME: 3.62005124904033; Best FVC: 1.0096858880816; Best F EV (1.0 sec): 0.426875061854076; V ext.: -0.078336397447119; FIVC: 0.041668589470533; FIV (0.5 sec): 0.587820191351042; FEV (0.5 secs) / FIV (0.5 secs): 77.5558992222291; FIF (50%): 2.2776254542964; FEF (50%) / FIF (50%): 26.7960820232041; MVV: 0; MTV: 0; RR: 0; MVV [...] smoker Vital Signs Date Test Result Details :51 Temperature 98.4 f Comments: Method: Temporal [...] 1.91 m2 Results Date Description Value Details :10 LIPID PANEL (44547) Comments: PATIENT WAS FASTINGPERFORMED BY: [facility]Saint [facility]villeOeddnd7416 [facility] [id number] LDL/HDL Ratio 2.2 {ratio_units} (Normal) Range: 0.0-3.6 Comments: LDL/HDL Ratio Men Women 1/2 Avg.Risk 1.0 1.5 Av g.Risk 3.6 3.2 2X Avg.Risk 6.2 5.0 3X Avg.Risk 8.0 6.1 LDL Cholesterol Calc 96 mg/dL (Normal) Range: 0-99 VLDL Cholesterol Johnny 14 mg/dL (Normal) Range: 5-40 HDL Cholesterol 43 mg/dL (Normal) Triglycerides 71 mg/dL (Normal) Range: 0-149 Cholesterol, Total 153 mg/dL (Normal) Range: 100-199 72-Dxa-89325:38 TSH (37095) Comments: PATIENT NOT FASTINGPERFORMED BY: [facility]icsSaint [facility] DenvilleYvcaue[address] [place] [address] [id number] Information: [id number] TSH 2.480 {uIU/mL} (Normal) Range: 0.450-4.500 5-Bzo-585697:23 AFB Stain AND Cytology Comments: [facility] [address] [place], [place], [id number] ACID FAST STAIN SEE PATHOLOGY REPORT (Normal) Comments: Specimen submitted to Anatomical Pathology Department fortesting. CYTOLOGY,BF/CSF SEE PATHOLOGY REPORT (Normal) Comments: Specimen submitted to Anatomical Pathology Department fortesting. :22 Basic Metabolic Profile (BMP) Comments: [facility] [address] [place], [place], [id number] GAP 7 (Normal) Range: 5-15 CO2 26.0 [...] 7-18 GLU 90 mg/dL (Normal) Range: 70-110 2-Fqn-318267:22 Liver Profile Comments: [facility] [address] [place], [place], [address] D BILI 0.11 mg/dL (Normal) Range: 0.00-0.30 T BILI 0.40 mg/dL (Normal) Range: 0.20-1.00 ALT 17 U/L (Normal) Range: 12-78 ALK P 102 U/L (Normal) Range: 50-136 AST 9 U/L (Abnormal) Range: 15-37 GLOB 4.5 g/dL (Abnormal) Range: 2.3-3.5 ALB 2.3 g/dL (Abnormal) Range: 3.4-5.0 T PROT 6.8 g/dL (Normal) Range: 6.4-8.2 7-Bxg-041956:10 CHEST, PA AND LATERAL Comments: appt 02/26/12 [...] EDTElectronically Signed GP/GP Professional Interpretation Provided By: Doutor RecomendaSterraClimb [facility], , To consult with a radiologist melissai ng this report, please call our [id number] line @ Dictated on 02/12/12 1503 by [...] RHINITIS DUE TO OTHER ALLERGEN Planned Observations CBC, Platelets & Auto Diff (13858)Indication: Cough On: 11-Jul-20188:26 Request CALCIFEDIOL (81709)Indication: Neurofibromatosis On: 11-Jul-20188:25 Request VITAMIN B12 AND FOLATES (82675)Indication: Depression, recurrent On: 11-Jul-20188:25 Request Metabolic Panel, Comprehensive (58790)Indication: Attention disturbance On: 11-Jul-20188:24 Request TSH (THYROID STIMULATING HORMONE) (21909)Indication: Depression, recurrent On: 11-Jul-20188:24 Request Planned Encounters Medical; ADD NEW VISIT - New to Tracy Mancia PT for ADD On: 14-Jul-2018 15:30 [facility] Ashutosh BUENO, Rashmi Ruby Planned Procedures Flu Vaccine (Quadrivalent) On: 11-Jul-2018 Intent 59136Dx: Tracy Bean CNP Comments: Lot #[id number]-L dltd, IMDose prefilled syringegiven by:Flori Sullivan LPNVIS reviewed and ABN signed Radiology - Chest- PA and On: 08-Aug-2017 Intent LatBy: Jacqueline Ramirez DO AshleyJacqueline duarte DO Flu Vaccine (Quadrivalent) On: 08-Aug-2017 Intent 78985Sm: Ashley DO, Jacqueline Comments: Lot:[id number]:01/22Amt:0.5mlRoute:IMSite: L DltdGiven By: Milagros SALES signed Jacqueline Ramirez DO Radiology - ChestBy: Lizbethjoe ASHWIN, On: 23-Oct-2016 Intent Tracy Ward Radiology - ChestBy: Vikas EXTENSION COURSE COORDINATOR, On: 21-Sep-2016 Intent Tracy Ward Comments: history of Rt lung abcess Wax CurettesBy: Tracy Bean CNP On: 21-Sep-2016 Intent E Aerosol Treatment (25054)By: On: 21-Sep-2016 Intent Tracy Bean CNP Flu Vaccine (Quadrivalent) On: 06-Jul-2016 Intent 09363Cq: Jacqueline Ramirez DO Comments: Lot:[id number]:04/05/17Dose:0.5mLRoute:IMSite:L DltdGiven By:Inocente signed Jacqueline Ramirez DO Wax Currettes (39736)By: Jose Francisco On: 26-Sep-2015 Intent Yaima VU Ear Irrigation (49571)By: Danial On: 26-Sep-2015 Intent Lina FLORES Comments: Large amount of wax removed from both earsdark yellow in colortolerated HORACE tobar Radiology - ChestBy: Ashutosh On: 25-Aug-2015 Intent Rashmi BUENO Comments: A/P if not betgter in 2 weeks Spirometry (10855)By: Danial FLORES, On: 26-Feb-2012 Intent Lina A Comments: good effor tand curve mod obst Inhaler Demo (15466)By: Danial On: 26-Feb-2012 Intent DO Lina A PFT - CompleteBy: Danial FLORES, On: 26-Feb-2012 Intent Lina A Spirometry (50312)By: Danial FLORES, On: 12-Feb-2012 Intent Lina A Comments: good effort flat curve mod obst Radiology - Chest- PA and On: 12-Feb-2012 Intent LatBy: Danial FLORES Lina A Aerosol Treatment (92038)By: On: 12-Feb-2012 Intent Lina Barrow DO Pulse Oximetry (04815)By: On: 12-Feb-2012 Intent Libertad Melchor Aerosol Treatment (75805)By: On: 28-Jan-2012 Intent Vikas CHRISTOPHERTracy E Wax CurettesBy: Vikas CHRISTOPHERTracy On: 28-Jan-2012 Intent E Ear Irrigation (62484)By: On: 28-Jan-2012 Intent Vikas CHRISTOPHER [place] Instructions Name Dates Details Current nonsmoker (Renamed [...] Instructions Indication: Cough Encounters Office Visit On: 11-Jul-2018 6:50 Encounter Reason: [...] (786.2), Wheezing (786.07) [facility]ayers [facility] Center[facility] diaz guarantor
--- OUTSIDE RECORDS SUMMARY | 2018-11-02 05:48 | XMS RPT_ITS | Continuity of Care Document ---
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 Jackson in [facility]. Status: Active Vitamin D deficiency (E55.9, 268.9) Status: Active Medications Name Dates Details CeleXA 20 MG Oral Tablet 1 (one) Tablet qhs for 0 days Quantity: 30 {Tablet} Refills: 6 Ordered:27-Mar-2018 Tara Ramirez DO, DO Jacqueline Start : 27-Mar-2018 Active ZyrTEC Allergy 10 MG Oral Tablet 1 (one) Tablet daily for 0 days Quantity: 30 {Tablet} Refills: 0 Ordered:11-Jul-2018 Tracy Bean CNP Start : 11-Jul-2018 Active Bromfed DM 30-2-10 MG/5ML Oral Syrup 10 Milliliter Milliliter u4sqaif cough for 0 days Quantity: 120 {Milliliter} [...] and Lateral Result: Comments: See Note; NOTES: [facility] Imaging Services [address] [place] [address] Chest PA and Lateral MR#: [id number] Acct: [id number] Name: BROOKE PENN Ace Rep #: [id number] : 1985 M 32 From: Nazario Cardona DO PCP: Jacqueline Ramirez DO Status: REG CLI Study: Chest PA and Lateral Date of Exam: 08/08/17 Exam# [id number] Ordering Dr: Jacqueline Ramirez DO STUDY: X-RAY [...] Nazario Cardona DO at 18:10 EDT Tel [phone], Service support , CC: Jacqueline Ramirez DO School Bus Dispatcher: Signed 22-Oct-2016 Chest PA and Lateral Result: Comments: See Note; NOTES: [facility] Imaging Services [address] [place] [address] Verdana 4d Chest PA and Lateral MR#: [id number] Acct: [id number] Name: BROOKE PENN Rep #: [id number] : 1985 31 From: Arnie Sol MD PCP: Jacqueline Ramirez DO Status: REG CLI Study: Chest PA and Lateral Date of Exam: 10/22/16 Exam# [id number] Ordering Dr: Tracy Bean STUDY: X-RAY CHEST [...] Arnie Sol MD at 12:17 EST Tel [phone], Service support [phone], CC: Tracy Bean; Jacqueline Ramirez DO School Bus Dispatcher: Signed 21-Sep-2016 Chest PA and Lateral Result: Comments: See Note; NOTES: [facility] Imaging Services [address] [place] [address] Verdana 4d Chest PA and Lateral MR#: [id number] Acct: [id number] Name: BROOKE PENN Rep #: [id number] : 1985 M 31 From: Arnie Sol MD PCP: aJcqueline Ramirez DO Status: REG CLI Study: Chest PA and Lateral Date of Exam: 09/21/16 Exam# [id number] Ordering Dr: Tracy Bean STUDY: X-RAY CHEST [...] Arnie Sol MD at 9:36 EST Tel [phone], Service support [phone], Fax CC: Tracy Bean; Jacqueline Ramirez School Bus Dispatcher: Signed 12-Apr-2016 Spirometry (75388) Comments: roxann Result: 07-Sep-2015 Emergency Department Summary Result: Comments: See Note; NOTES: [facility] Medical Records Department [address] [place] [address] Emergency Department Summary MR#: [id number] Acct: [id number] Name: BROOKE PENN Rep #: [id number] : 1985 30 From: Edgardo Arrington MD [...] the patient options. I initially ca lled [facility] per his choice. They currently are out of beds, so I will talk to [facility] about a transfer. He was initially started on Rocephin and Zithromax. Labs and cultures are pending. Edgardo Arrington MD C C: Rashmi Boykin MD T: [facility] JOB: [id number] 09/07/15 1647 <Electronically signed by Edgardo Arrington MD> Date Edgardo Arrington MD Cosigner Signature (If Indicated): Date CC: Rashmi Boykin MD Date Dictated: 09/07/15 135 D ate Transcribed: 09/07/151351 School Bus Dispatcher: Signed 07-Sep-2015 Chest WITH Contrast Result: Comments: See Note; NOTES: [facility] Imaging Services [address] [place] [address] Verdana 4d Chest WITH Contrast MR#: [id number] Acct: [id number] Name: DAVID PENN FANTA Bello Rep #: [id number] : 1985 M 30 From: Arnie Sol MD PCP: Rashmi Boykin MD Status: REG ER Study: Chest WITH Contrast Date of Exam: 09/07/15 Exam# [id number] Ordering Dr: Jose Arrington MD STUDY: CT [...] Arnie Sol MD at 13:25 EST Tel [phone], Service support [phone], CC: Rashmi Boykin MD; Edgardo Arrington MD School Bus Dispatcher: Signed 07-Sep-2015 Chest PA and Lateral Result: Comments: See Note; NOTES: [facility] Imaging Services [address] [place] [address] Verdana 4d Chest PA and Lateral MR#: [id number] Acct: [id number] Name: Milagros PENN Rep #: [id number] : 1985 30 From: Arnie Sol MD PCP: Rashmi Boykin MD Status: REG CLI Study: Chest PA and Lateral Date of Exam: 09/07/15 Exam# [id number] Ordering Dr: Rashmi Boykin MD STUDY: X-RAY [...] Arnie Sol MD at 9:24 EST Tel [phone], Service support [phone], RAD/Chest PA and Lateral IMPRESSION: There is almost complete opacification of the right hemithorax suggestive of a pleural effusion with underlying pneumonic infiltration. Co arse and increased markings in the right upper lobe with areas of confluence. Tuberculosis should be ruled out. Electronically Signed: Arnie Sol MD at 9:24 EST Tel [phone] , Service support [phone], CC: Rashmi Boykin MD School Bus Dispatcher: Signed 25-Aug-2015 Spirometry (74683) Result: 25-Aug-2015 Spirometry (04308) Comments: see scanned document of test done to see results reviewed today with patient pt not able to coordinate Result: [Preliminary Information] Sensor Calibration Date: 01/24/2015; Sensor SN: [id number]; Pressure: 760; Temperature: 21.8221109851377 [Pre-Bronchodilator] FVC: 1.46784852862823; FEV (0.5 secs): 0.3762964047 05774; FEV (1.0 sec): 0.854900167666530; FEV (3.0 secs): 1.98942421022828; FEV (6.0 secs): 0; FEV (1.0 sec) / FVC: 68.0665488288362; FEV (3.0 secs) / FVC: 99.3540105868403; FEV (1.0 sec) / FEV (6.0 secs ): 0; FEF (25-75%): 0; FEF (75-85%): 0.82299520834840; PEF: 1.74952143642939; FEF (25%): 0; FEF (75%): 0.953629951342192; FEF (200-1200): 0; EXP TIME: 3.82164071556702; Best FVC: 1.2708051123498; Best F EV (1.0 sec): 0.885990185874280; V ext.: -0.871019689287659; FIVC: 0.970646843281558; FIV (0.5 sec): 0.526506264404313; FEV (0.5 secs) / FIV (0.5 secs): 77.6178856422050; FIF (50%): 2.4285626969691; FEF (50%) / FIF (50%): 26.0010551142308; MVV: 0; MTV: 0; RR: 0; MVV [...] Diff Comments: PATIENT NOT FASTINGPERFORMED BY: [facility] Qviaco3619 [facility] [id number] (32693) Immature Grans (Abs) 0.0 {x10E3/uL} (Normal) Range: [...] 6.8 {x10E3/uL} (Normal) Range: 3.4-10.8 :34 CALCIFEDIOL (63659) Comments: PATIENT NOT FASTINGPERFORMED BY: [employer] [address]56[address] [facility] [id number] Vitamin D, 25-Hydroxy 15.4 ng/mL (Abnormal) Range: 30.0-100.0 Comments: Vitamin D deficiency has been defined by the [place] ofMedicine and an Endocrine Society practice guideline as alevel of serum 25-OH vitamin D less than 20 ng/mL (1,2).The Endocrine Society went on to further define vitamin Dinsufficiency as a level between 21 and 29 ng/mL (2).1. IOM ([place] of Medicine). 2010. Dietary reference intakes for calcium and D. [place]: The National Academies Press.2. Megan MF, Arsenio LOVETT, Remy LOVING, et al. Evaluation, treatment, and prevention of vitamin D deficiency: an Endocrine Society clinical practice guideline. JCEM. 2010; 96(7):1911-30. :34 VITAMIN B12 AND FOLATES Comments: PATIENT NOT FASTINGPERFORMED BY: [employer] [address]uxh[address] [facility] [id number] (97388) Folate (Folic Acid), Serum 6.0 ng/mL (Normal) Comments: A serum folate concentration of less than 3.1 ng/mL isconsidered to represent clinical deficiency. Vitamin B12 444 pg/mL (Normal) Range: 232-1245 :34 Metabolic Panel, Comprehensive Comments: PATIENT NOT FASTINGPERFORMED BY: [employer] Fnbfsf3894 [facility] [id number] (78007) ALT (SGPT) 11 [iU]/L (Normal) Range: 0-44 [...] (THYROID STIMULATING Comments: PATIENT NOT FASTINGPERFORMED BY: [facility] ClinicAjnsqr2953 [facility] [id number] HORMONE) (09788) TSH 2.580 {uIU/mL} (Normal) Range: 0.450-4.500 :10 LIPID PANEL (97714) Comments: PATIENT WAS FASTINGPERFORMED BY: [facility]wtmf[facility]8903 [facility] [id number] LDL/HDL Ratio 2.2 {ratio_units} (Normal) Range: 0.0-3.6 [...] 153 mg/dL (Normal) Range: 100-199 :38 TSH (60383) Comments: PATIENT NOT FASTINGPERFORMED BY: [facility] [address]vjwsg[address] [place] [id number] Information: [id number] TSH 2.480 {uIU/mL} (Normal) Range: 0.450-4.500 7-Ofc-834843:23 AFB Stain AND Cytology Comments: [facility] [address] [place], [address] ACID FAST STAIN SEE PATHOLOGY REPORT (Normal) Comments: Specimen submitted to Anatomical Pathology Department fortesting. CYTOLOGY,BF/CSF SEE PATHOLOGY REPORT (Normal) Comments: Specimen submitted to Anatomical Pathology Department fortesting. 0-Sje-389770:22 Basic Metabolic Profile (BMP) Comments: [facility] [address] [place], [address] GAP 7 (Normal) Range: 5-15 [...] 7-18 GLU 90 mg/dL (Normal) Range: 70-110 6-Iwc-828473:22 Liver Profile Comments: [facility] [address] [place], [place], [address] D BILI 0.11 mg/dL (Normal) Range: 0.00-0.30 T BILI 0.40 mg/dL (Normal) Range: 0.20-1.00 ALT 17 U/L (Normal) Range: 12-78 ALK P 102 U/L (Normal) Range: 50-136 AST 9 U/L (Abnormal) Range: 15-37 GLOB 4.5 g/dL (Abnormal) Range: 2.3-3.5 ALB 2.3 g/dL (Abnormal) Range: 3.4-5.0 T PROT 6.8 g/dL (Normal) Range: 6.4-8.2 4-Imy-064614:10 CHEST, PA AND LATERAL Comments: appt 02/26/12 [...] EDTElectronically Signed GP/GP Professional Interpretation Provided By: [facility], , To consult with a radiologist regardi ng this report, please call our [id number] line @ Dictated on 02/12/12 1503 by [...] RHINITIS DUE TO OTHER ALLERGEN Planned Observations CALCIFEDIOL (98570)Indication: Vitamin D deficiency On: 14-Jul-20189:00 Request Planned Encounters Medical; ADD NEW VISIT - New to Dr. Boykin Tracy PT for ADD On: 14-Jul-2018 15:30 [facility] Rashmi Boykin MD Planned Procedures Flu Vaccine (Quadrivalent) On: 11-Jul-2018 Intent 79443Fz: Tracy Bean CNP Comments: Lot #[id number]-L dltd, IMDose prefilled syringegiven by:FRANCISCA Venegas reviewed and ABN signed Radiology - Chest- PA and On: 08-Aug-2017 Intent LatBy: Ashley DO, Jacqueline Ashley DO, Jacqueline Flu Vaccine (Quadrivalent) On: 08-Aug-2017 Intent 16554At: Ashley DO Jacqueline Comments: Lot:[id number]/22Amt:0.5mlRoute:IMSite: L DltdGiven By: Milagros SALES signed Ashley DO, Jacqueline Radiology - ChestBy: Vikas CHRISTOPHER, On: 23-Oct-2016 Intent Tracy Ward Radiology - ChestBy: Vikas CHRISTOPHER, On: 21-Sep-2016 Intent Tracy Ward Comments: history of Rt lung abcess Wax CurettesBy: Tracy Bean CNP On: 21-Sep-2016 Intent E Aerosol Treatment (29811)By: On: 21-Sep-2016 Intent Tracy Bean CNP Flu Vaccine (Quadrivalent) On: 06-Jul-2016 Intent 05987Aa: Ashley DO Jacqueline Comments: Lot:[id number]:04/05/17Dose:0.5mLRoute:IMSite:L DltdGiven By:Inocente signed Ashley DO Jacqueline Wax Currettes (09664)By: Jose Francisco On: 26-Sep-2015 Intent Yaima VU Ear Irrigation (40360)By: Danial On: 26-Sep-2015 Lina Isabel DO Comments: Large amount of wax removed from both earsdark yellow in colortolerated HORACE tobar Radiology - ChestBy: Ashutosh On: 25-Aug-2015 Intent Rashmi BUENO Comments: A/P if not betgter in 2 weeks Spirometry (70493)By: Danial FLORES, On: 26-Feb-2012 Intent Lina A Comments: good effor tand curve mod obst Inhaler Demo (22002)By: Danial On: 26-Feb-2012 Intent Lina FLORES PFT - CompleteBy: Danial FLORES, On: 26-Feb-2012 Intent Lina Burger Spirometry (62481)By: Danial FLORES, On: 12-Feb-2012 Intent Lina A Comments: good effort flat curve mod obst Radiology - Chest- PA and On: 12-Feb-2012 Intent LatBy: Lina Barrow DO Aerosol Treatment (64824)By: On: 12-Feb-2012 Intent Lina Barrow DO A Pulse Oximetry (61563)By: On: 12-Feb-2012 Intent Libertad Melchor Aerosol Treatment (22975)By: On: 28-Jan-2012 Intent Tracy Bean CNP Wax CurettesBy: Tracy Bean CNP On: 28-Jan-2012 Intent E Ear Irrigation (94872)By: On: 28-Jan-2012 Intent Tracy Bean CNP Instructions Name Dates Details Current nonsmoker (Renamed [...] Instructions Indication: Cough Encounters Lab Order On: 14-Jul-2018 9:00 Encounter Diagnosis: [...] (786.2), Wheezing (786.07) [facility] Payers [facility] Dylan Penn; joe guarantor
--- OUTSIDE RECORDS SUMMARY | 2018-11-02 05:48 | XMS RPT_ITS | Continuity of Care Document ---
:1985 Author Organization [facility] Address [address] [facility] [address] [place] [address] Phone Care Team Providers Name Role Phone Jacqueline Ramirez DO Unavailable Filippo Naik Unavailable Cisukia INK JET OPERATOR, Lourdes Unavailable Sayra Small Unavailable Unavailable Maira, Yarelis Unavailable Unavailable Slarb TRAINING ASSOCIATE, Yaima Unavailable Unavailable Long TRAINING ASSOCIATE, Erum L Unavailable Unavailable Unavailable Unavailable Problems [...] Comments: meets criteria. meds working well. 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 Jackson in [facility]. Status: Active Vitamin D deficiency (E55.9, [...] days Quantity: 2 {Inhalation} Refills: 0 Ordered:26-Aug-2018 Vikas CHRISTOPHER Tracy Ward Start : 26-Aug-2018 Active CeleXA 20 MG Oral Tablet 1 (one) Tablet qhs for 0 days Quantity: 30 {Tablet} Refills: 6 Ordered:27-Mar-2018 Tara Ramirez DO, DO, Kathleen Start : 27-Mar-2018 Active Cheratussin AC 100-10 MG/5ML Oral Solution 4 Milliliter qhs prn for cough for 0 days Quantity: 120 {Milliliter} Refills: 0 Ordered:26-Aug-2018 Vikas CHRISTOPEHR Tracy Ward Start : 26-Aug-2018 Active Doxycycline Monohydrate 100 MG Oral Tablet 1 (one) Tablet bid for 10 days Quantity: 20 {Tablet} Refills: 0 Ordered:12-Sep-2018 Vikas CHRISTOPHERTracy Start : 12-Sep-2018 Active ProAir HFA 108 (90 Base) MCG/ACT Inhalation Aerosol Solution 2 (two) Aerosol Soln tid prn for 0 days Quantity: 1 {Inhaler} Refills: 0 Ordered:12-Sep-2018 Vikas CHRISTOPHERTracy Start : 12-Sep-2018 Active ZyrTEC Allergy 10 [...] 30-2-10 MG/5ML Oral Syrup 10 Milliliter Milliliter d7rxezw cough for 0 days Quantity: 120 {Milliliter} [...] days Quantity: 90 {Capsule} Refills: 0 Ordered:21-Sep-2016 MarkYarelis hart Start : 06-Jul-2016 End : 21-Sep-2016 Inactive Doxycycline Hyclate 100 MG Oral Capsule 1 (one) Capsule bid for 7 days Quantity: 14 {Capsule} Refills: 0 Ordered:26-Aug-2018 Vikas ASHWINTracy Start : 26-Aug-2018 End : 02-Sep-2018 Inactive [...] days Quantity: 1 {Aero_Pow_Br_Act} Refills: 1 Ordered:15-Apr-2015 Mary Ann Fernandez LPNe Start : 26-Feb-2012 End : 15-Apr-2015 Discontinued [...] and Lateral Result: Comments: See Note; NOTES: [facility] Imaging Services [address] [place] [address] Chest PA and Lateral MR#: [id number] Acct: [id number] Name: BROOKE PENN Rep #: [id number] : 1985 33 From: Arnie Sol MD PCP: Jacqueline Ramirez DO Status: REG CLI Study: Chest PA and Lateral Date of Exam: 08/26/18 Exam# [id number] Ordering Dr: Tracy Bean DOOR PATCHER-C STUDY: X-RAY C HEST REASON FOR EXAM: [...] Arnie Sol MD at 11:16 EST Tel [phone], Service support , CC: Tracy Bean DOOR PATCHER; Jacqueline Ramirez DO Byproduct Engineer: Signed 08-Aug-2017 Chest PA and Lateral Result: Comments: See Note; NOTES: [facility] Imaging Services [address] [place] [address] Chest PA and Lateral MR#: [id number] Acct: [id number] Name: BROOKE PENN Rep #: [id number] : 1985 M 32 From: Nazario Cardona DO PCP: Jacqueline Ramirez DO Status: REG CLI Study: Chest PA and Lateral Date of Exam: 08/08/17 Exam# [id number] Ordering Dr: Jacqueline Ramirez DO STUDY: X-RAY [...] Nazario Cardona DO at 18:10 EDT Tel [phone], Service support , CC: Jacqueline Ramirez DO Byproduct Engineer: Signed 22-Oct-2016 Chest PA and Lateral Result: Comments: See Note; NOTES: [facility] Imaging Services [address] [place] [address] Verdana 4d Chest PA and Lateral MR#: [id number] Acct: [id number] Name: BROOKE PENN Rep #: [id number] : 1985 M 31 From: Arnie Sol MD PCP: Jacqueline Ramirez DO Status: REG CLI Study: Chest PA and Lateral Date of Exam: 10/22/16 Exam# [id number] Ordering Dr: Tracy Bean STUDY: X-RAY CHEST [...] Arnie Sol MD at 12:17 EST Tel [phone], Service support [phone], CC: Tracy Bean; Jacqueline Ramirez DO Byproduct Engineer: Signed 21-Sep-2016 Chest PA and Lateral Result: Comments: See Note; NOTES: [facility] Imaging Services [address] [place] [address] Verdana 4d Chest PA and Lateral MR#: [id number] Acct: [id number] Name: BROOKE PENN Rep #: [id number] : 1985 M 31 From: Arnie Sol MD PCP: Jacqueline Ramirez DO Status: REG CLI Study: Chest PA and Lateral Date of Exam: 09/21/16 Exam# [id number] Ordering Dr: Tracy Bean STUDY: X-RAY CHEST [...] Arnie Sol MD at 9:36 EST Tel [phone], Service support [phone], Fax CC: Tracy Mooreyajaira; Jacqueline Ramirez DO Byproduct Engineer: Signed 12-Apr-2016 Spirometry (56794) Comments: roxann Result: 07-Sep-2015 Emergency Department Summary Result: Comments: See Note; NOTES: [facility] Medical Records Department [address] [place] [address] Emergency Department Summary MR#: [id number] Acct: [id number] Name: BROOKE PENN Rep #: [id number] : 1985 30 From: Edgardo Arrington MD [...] seen by Dr. Carlson, they obtained a [facility] x-ray. He basically had a whiteout [...] the patient options. I initially ca lled [facility] per his choice. They currently are out of beds, so I will talk to [facility] about a transfer. He was initially started on Rocephin and Zithromax. Labs and cultures are pending. Edgardo Arrington MD C C: Rashmi Boykin MD T: [facility] JOB: [id number] 09/07/15 1647 <Electronically signed by Edgardo Arrington MD> Date Edgardo Arrington MD Cosigner Signature (If Indicated): Date CC: Rashmi Boykin MD Date Dictated: 09/07/15 1352 D ate Transcribed: 09/07/151351 Byproduct Engineer: Signed 07-Sep-2015 Chest WITH Contrast Result: Comments: See Note; NOTES: [facility] Imaging Services [address] [place] [address] Verdana 4d Chest WITH Contrast MR#: [id number] Acct: [id number] Name: DAVID PENN Rep #: [id number] : 1985 M 30 From: Arnie Sol MD PCP: Rashmi Boykin MD Status: REG ER Study: Chest WITH Contrast Date of Exam: 09/07/15 Exam# [id number] Ordering Dr: Jose Arrington MD STUDY: CT [...] Arnie Sol MD at 13:25 EST Tel [phone], Service support [phone], CC: Rashmi Boykin MD; Edgardo Arrington MD Byproduct Engineer: Signed 07-Sep-2015 Chest PA and Lateral Result: Comments: See Note; NOTES: [facility] Imaging Services [address] [place] [address] Verdana 4d Chest PA and Lateral MR#: [id number] Acct: [id number] Name: Milagros PENN R Rep #: [id number] : 1985 30 From: Arnie Sol MD PCP: Rashmi Boykin MD Status: REG CLI Study: Chest PA and Lateral Date of Exam: 09/07/15 Exam# [id number] Ordering Dr: Rashmi Boykin MD STUDY: X-RAY [...] Arnie Sol MD at 9:24 EST Tel [phone], Service support [phone], RAD/Chest PA and Lateral IMPRESSION: There is almost complete opacification of the right hemithorax suggestive of a pleural effusion with underlying pneumonic infiltration. Co arse and increased markings in the right upper lobe with areas of confluence. Tuberculosis should be ruled out. Electronically Signed: Arnie Sol MD at 9:24 EST Tel [phone] , Service support [phone], CC: Rashmi Boykin MD Byproduct Engineer: Signed 25-Aug-2015 Spirometry (97220) Result: 25-Aug-2015 Spirometry (41709) Comments: see scanned document of test done to see results reviewed today with patient pt not able to coordinate Result: [Preliminary Information] Sensor Calibration Date: 01/24/2015; Sensor SN: [id number]; Pressure: 760; Temperature: 21.2131854231222 [Pre-Bronchodilator] FVC: 1.52798667991883; FEV (0.5 secs): 0.9367737436 10437; FEV (1.0 sec): 0.483830325591925; FEV (3.0 secs): 1.37363416931750; FEV (6.0 secs): 0; FEV (1.0 sec) / FVC: 68.3468277715897; FEV (3.0 secs) / FVC: 99.4570754868110; FEV (1.0 sec) / FEV (6.0 secs ): 0; FEF (25-75%): 0; FEF (75-85%): 0.00325110652432; PEF: 1.53805654423074; FEF (25%): 0; FEF (75%): 0.654875376430964; FEF (200-1200): 0; EXP TIME: 3.34910282175432; Best FVC: 1.8086715543731; Best F EV (1.0 sec): 0.988660693054479; V ext.: -0.795360673074264; FIVC: 0.966462050154557; FIV (0.5 sec): 0.039622565409937; FEV (0.5 secs) / FIV (0.5 secs): 77.8532897777169; FIF (50%): 2.2464248732247; FEF (50%) / FIF (50%): 26.3418725331572; MVV: 0; MTV: 0; RR: 0; MVV [...] 1.91 m2 Results Date Description Value Details 3-Qec-112338:11 Drug Screen (7drug + Comments: PATIENT NOT FASTINGPERFORMED BY: [facility] OTS [id number] [place] [id number] Information: [id number] LM Alcohol) (58887) Ethanol, Urine Negative % (Normal) Phencyclidine Negative [...] Amphetamine test includes Amphetamine and Methamphetamine. (Normal) :34 CBC, Platelets & Auto Diff Comments: PATIENT NOT FASTINGPERFORMED BY: [facility] Tmwrri[address] [facility] [id number] (08589) Immature Grans (Abs) 0.0 {x10E3/uL} (Normal) Range: [...] 6.8 {x10E3/uL} (Normal) Range: 3.4-10.8 :34 CALCIFEDIOL (52057) Comments: PATIENT NOT FASTINGPERFORMED BY: [facility] [facility] [id number] Vitamin D, 25-Hydroxy 15.4 ng/mL (Abnormal) Range: 30.0-100.0 Comments: Vitamin D deficiency has been defined by the [place] ofMedicine and an Endocrine Society practice guideline as alevel of serum 25-OH vitamin D less than 20 ng/mL (1,2).The Endocrine Society went on to further define vitamin Dinsufficiency as a level between 21 and 29 ng/mL (2).1. IOM ([place] of Medicine). 2010. Dietary reference intakes for calcium and D. [place]: The National Academies Press.2. Megan MF, Arsenio [place], Remy LOVING, et al. Evaluation, treatment, and prevention of vitamin D deficiency: an Endocrine Society clinical practice guideline. JCEM. 2010; 96(7):1911-30. :34 VITAMIN B12 AND FOLATES Comments: PATIENT NOT FASTINGPERFORMED BY: [facility] HospitalPsyghg[facility] [facility] [id number] (62795) Folate (Folic Acid), Serum 6.0 ng/mL (Normal) Comments: A serum folate concentration of less than 3.1 ng/mL isconsidered to represent clinical deficiency. Vitamin B12 444 pg/mL (Normal) Range: 232-1245 :34 Metabolic Panel, Comprehensive Comments: PATIENT NOT FASTINGPERFORMED BY: [facility] CenterVyliof[facility] [facility] [id number] (74515) ALT (SGPT) 11 [iU]/L (Normal) Range: 0-44 [...] (THYROID STIMULATING Comments: PATIENT NOT FASTINGPERFORMED BY: [facility] CenterYvjhik[address] [facility] [id number] HORMONE) (99241) TSH 2.580 {uIU/mL} (Normal) Range: 0.450-4.500 13-Tio-72125:10 LIPID PANEL (91552) Comments: PATIENT WAS FASTINGPERFORMED BY: [place] [id number] [facility] [id number] LDL/HDL Ratio 2.2 {ratio_units} (Normal) Range: 0.0-3.6 Comments: LDL/HDL Ratio Men Women 1/2 Avg.Risk 1.0 1.5 Av g.Risk 3.6 3.2 2X Avg.Risk 6.2 5.0 3X Avg.Risk 8.0 6.1 LDL Cholesterol Calc 96 mg/dL (Normal) Range: 0-99 VLDL Cholesterol Johnny 14 mg/dL (Normal) Range: 5-40 HDL Cholesterol 43 mg/dL (Normal) Triglycerides 71 mg/dL (Normal) Range: 0-149 Cholesterol, Total 153 mg/dL (Normal) Range: 100-199 26-Byf-87029:38 TSH (88774) Comments: PATIENT NOT FASTINGPERFORMED BY: [facility] [facility] [id number] Information: [id number] TSH 2.480 {uIU/mL} (Normal) Range: 0.450-4.500 3-Ptx-063531:23 AFB Stain AND Cytology Comments: [facility] [address] [place], [place], [address] ACID FAST STAIN SEE PATHOLOGY REPORT (Normal) Comments: Specimen submitted to Anatomical Pathology Department fortesting. CYTOLOGY,BF/CSF SEE PATHOLOGY REPORT (Normal) Comments: Specimen submitted to Anatomical Pathology Department fortesting. 6-Cpz-617449:22 Basic Metabolic Profile (BMP) Comments: [facility] [address] [place], [place], [address] GAP 7 (Normal) Range: 5-15 CO2 26.0 [...] 7-18 GLU 90 mg/dL (Normal) Range: 70-110 1-Whx-478300:22 Liver Profile Comments: [facility] [address] [place], [place], [address] D BILI 0.11 mg/dL (Normal) Range: 0.00-0.30 T BILI 0.40 mg/dL (Normal) Range: 0.20-1.00 ALT 17 U/L (Normal) Range: 12-78 ALK P 102 U/L (Normal) Range: 50-136 AST 9 U/L (Abnormal) Range: 15-37 GLOB 4.5 g/dL (Abnormal) Range: 2.3-3.5 ALB 2.3 g/dL (Abnormal) Range: 3.4-5.0 T PROT 6.8 g/dL (Normal) Range: 6.4-8.2 8-Cls-818347:10 CHEST, PA AND LATERAL Comments: appt 02/26/12 [...] EDTElectronically Signed GP/GP Professional Interpretation Provided By: [facility], , To consult with a radiologist regardi ng this report, please call our [id number] line @ Dictated on 02/12/12 1503 by [...] class other than Chromatographic method, each procedure (61118)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 On: 12-Aug-20188:48 Request Drug Screen (7drug + Alcohol) (58976)Indication: Attention disturbance On: 2-Ovl-233856:10 Request CALCIFEDIOL (90332)Indication: Vitamin D deficiency On: 14-Jul-20189:00 Request Planned Encounters Medical; 3 Month FU - On: 17-Nov-2018 8:30 [facility] Tracy Bean CNP Medical; ADD EST VISIT - On: 06-Feb-2019 7:00 [facility] Ashutosh BUENO, Rashmi Ruby Planned Procedures PFT - Before and After SpiroBy: On: 12-Sep-2018 Intent Tracy Bean CNP CHEST XRAY, PA & LATERAL On: 26-Aug-2018 Intent (98419)By: Tracy Bean CNP Aerosol Treatment (73278)By: On: 26-Aug-2018 Intent Tracy Bean CNP Spirometry (01446)By: Vikas CHRISTOPHER, On: 26-Aug-2018 Intent Tracy Ward Comments: Severe airway obstruction a little easier after aerosol Flu Vaccine (Quadrivalent) On: 11-Jul-2018 Intent 58267Ed: Tracy Bean CNP Comments: Lot #[id number]-L dltd, IMDose prefilled syringegiven by:FRANCISCA Venegas reviewed and ABN signed Radiology - Chest- PA and LatBy: On: 08-Aug-2017 Intent AshleyJacqueline duarte DO Ashley DOJacqueline Flu Vaccine (Quadrivalent) On: 08-Aug-2017 Intent 99709Wo: Jacqueline Ramirez DO Comments: Lot:[id number]/22Amt:0.5mlRoute:IMSite: L DltdGiven By: Milagros SALES signed Ashley DO Jacqueline Radiology - ChestBy: Vikas CHRISTOPHER, On: 23-Oct-2016 Intent Tracy Ward Radiology - ChestBy: Vikas CHRISTOPHER, On: 21-Sep-2016 Intent Tracy Ward Comments: history of Rt lung abcess Wax CurettesBy: Tracy Bean CNP On: 21-Sep-2016 Intent Aerosol Treatment (05230)By: On: 21-Sep-2016 Intent Tracy Bean CNP Flu Vaccine (Quadrivalent) On: 06-Jul-2016 Intent 34604Wi: Jacqueline Ramirez DO Comments: Lot:[id number]:04/05/17Dose:0.5mLRoute:IMSite:L DltdGiven By:Inocente signed Ashley DO Jacqueline Wax Currettes (39227)By: Jose Francisco On: 26-Sep-2015 Intent Yaima VU Ear Irrigation (45635)By: Danial On: 26-Sep-2015 Intent Lina FLORES Comments: Large amount of wax removed from both earsdark yellow in colortolerated HORACE tobar Radiology - ChestBy: Ashutosh BUENO, On: 25-Aug-2015 Intent Rashmi Ruby Comments: A/P if not betgter in 2 weeks Spirometry (15565)By: Danial FLORES, On: 26-Feb-2012 Intent Lina A Comments: good effor tand curve mod obst Inhaler Demo (66818)By: Danial FLORES, On: 26-Feb-2012 Intent Lina Diaz PFT - CompleteBy: Lina Barrow DO On: 26-Feb-2012 Intent A Spirometry (90487)By: Danial FLORES, On: 12-Feb-2012 Intent Lina A Comments: good effort flat curve mod obst Radiology - Chest- PA and LatBy: On: 12-Feb-2012 Intent Lina Barrow DO Aerosol Treatment (95796)By: Danial On: 12-Feb-2012 Intent Lina FLORES Pulse Oximetry (35757)By: On: 12-Feb-2012 Intent Libertad Melchor Aerosol Treatment (55519)By: On: 28-Jan-2012 Intent Tracy Bean CNP Wax CurettesBy: Tracy Bean CNP On: 28-Jan-2012 Intent Ear Irrigation (77259)By: Vikas On: 28-Jan-2012 Intent Tracy CHRISTOPHER Instructions [...] Cough : Patient Instructions Indication: Cough Encounters Review On: 12-Sep-2018 8:18 Encounter Reason: Follow up acute care visit - The patient worsening. Note for Follow up acute care visit: Was treated with doxy but cough returned after a day or two 7-10 days ago. Was on doxy and prednisone and cough med, [ADDITIONAL REASON] Cough - Note for Cough: [...] (786.2), Wheezing (786.07) [facility]ayers [facility] Center[facility] diaz guarantor
--- OUTSIDE RECORDS SUMMARY | 2018-11-02 05:49 | XMS RPT_ITS ---
:1985 Author Organization OHIP Care Team Providers Name Role Phone Jacqueline Ramirez DO Attending Unavailable Tracy Bean Referring Unavailable Jacqueline Ramirez DO Consulting Unavailable Tracy Bean Attending Unavailable TeresaesaTracy Referring Unavailable Lizbetha Tracy Primary Care Unavailable Tracy Bean Attending Unavailable Vikas, Tracy Referring Unavailable Jacqueline Ramirez Primary Care Unavailable Parish Day Attending Unavailable Tracy Bean Referring Unavailable Purpose Purpose PROBLEMS PROBLEMS DATE TYPE CONDITION / CODE ATTENDING STATUS SOURCE 09/25/2018 Unknown Z87.09 - Personal Parish Day Active [facility] history of other [facility] respiratory Repository system / Z87.09(ICD-10) PROCEDURES PROCEDURES No Procedure Records FoundVITAL SIGNS VITAL SIGNS No Vital Signs Records FoundRESULTS RESULTS SPIROMETRY PFT TESTING Observed: 09/17/2018 Status: F Source: JUSTYN 5:52 AM [facility] [place] [facility] Pulmonary Services/Neurology [address] [place] [address] MR#: [id number] Acct: [id number] Name: BROOKE PENN Rep #: [id number] : 1985 33 From: Parish Day MD Referring Dr: Tracy Bean NP Status: REG CLI Ordering Dr: Date: Location: [facility] Sex: M C Spirometry PFT Testing Spirometry PFT Testing: COMPLETE PULMONARY FUNCTION TEST INTERPRETATION Brief HPI: Patient is a 33 year old male, currently under the care of Tracy Bean, who presents to [facility] for complete pulmonary function tests secondary to diagnosis of history of empyema. Respiratory therapist reports good effort and reproducible results. Interpretation: Forced expiration spirometry shows a severe large airways obstructive ventilatory defect with an FEV1 of 50% predicted. There is no significant bronchodilator response by strict ATS criteria. Spirograms are of good quality and plateau slowly, indicating slowly emptying areas of the lungs. The respiratory flow volume loop shows decreased expiratory flow rates at high lung volumes consistent with small airways obstruction. Compared to previous pulmonary function tests from 04/15/2012, there has been a significant reduction in FVC and FEV1 by 26% and 47% respectively. Impression: Restriction cannot be excluded. Consider repeat testing with lung volumes. Severe obstructive ventilatory defect noted, but improvement did not reach clinical significance by ATS criteria. 09/17/18 0552 <Electronically signed by Parish Day MD> Date Parish Day MD CC: Date Dictated: 09/16/18 1611 Date Transcribed: 09/16/18 161 Pool Manager: AMPARO Signed CHEST PA AND LATERAL Observed: 08/26/2018 Status: F Source: ENCINO 10:36 AM [facility] [place] [facility] Imaging Services [address] [place] [address] Chest PA and Lateral MR#: [id number] Acct: [id number] Name: BROOKE PENN Ace Rep #: [id number] : 1985 M 33 From: Arnie Sol MD PCP: Jacqueline Ramirez DO Status: REG CLI Study: Chest PA and Lateral Date of Exam: 08/26/18 Exam# [id number] Ordering Dr: Tracy Bean WARRANTY MANAGER-C STUDY: X-RAY CHEST REASON FOR EXAM: Male, 33 years old. History of right lung infection. Prior surgery in the right hemithorax. TECHNIQUE: PA and lateral views of the chest. COMPARISON: Comparison is made with prior examination dated August 08, 2017. FINDINGS: Stable pleural parenchymal changes in the right hemithorax with evidence of a small right pleural effusion with underlying infiltration and/or atelectasis. Surgical sutures are seen [...] abdomen. RAD/Chest PA and Lateral IMPRESSION: Stable pleural-parenchymal changes in the right hemithorax. Electronically Signed: Arnie Sol MD at 11:16 EST Tel [phone], Service support , CC: Tracy Bean NP; Jacqueline Ramirez DO Pool Manager: Signed ALLERGIES ALLERGIES DATE TYPE / CODE NAME / CODE REACTION SEVERITY SOURCE 09/07/2015 Drug No Known Unknown [facility] Allergy/4160 Allergies/F00 [facility] 70767(SNOMED [id number](RXNOR Repository CT) M) ENCOUNTERS ENCOUNTERS ADMIT/DISCHARGE ACCOUNT ADMITTING ENCOUNTER LOCATION SOURCE NUMBER CLASS 10/21/2018 [id number] Ambulatory Building:[facility] [place] Practices Repository 09/16/2018 [id number] Ambulatory [facility] Justyn 5 [facility] ing:PSN Repository 09/16/2018 [id number] Ambulatory BMSBuilding:W Thompson 4 [facility] Repository 08/26/2018 [id number] Ambulatory [facility] 8 [facility] ing:HPRAD Repository FUNCTIONAL STATUS FUNCTIONAL STATUS No Functional Status Records FoundEQUIPMENT EQUIPMENT No Equipment Records FoundPAYERS PAYERS ENCOUNTER GUARANTOR PAYER SUBSCRIBER SOURCE 10/21/2018 Brooke R HallDOB: Primary Brooke R HallDOB: OHIP Practices Insurance:[employer] [id number] [address] Number: [address] [place], [place] [id number] [place], [place] [address]Uls: (669) Date:[id number] [id number]: Name:[facility] [id number] () (HP)Tel: [phone] [place] [phone] (MQ) [address]CZ: 10/21/2018 Secondary Brooke R HallDOB: [facility]IP Practices Insurance:[facility] [id number] Repository Sallie/AssurancePoli [address] [place] [address] cy Number: [address] [id number] [place], [place] Date:2011-10-07Tel: [phone] (HP) Name:[facility] [address] [place] [address]XX: 10/21/2018 Tertiary Brooke R HallDOB: [facility] Practices Insurance:[employer] [id number] [address] Number: [address] [id number] [place], [place] Date:2014-08-18Tel: [phone] (HP) Name:[facility] [id number] [place] [address]WK: 10/21/2018 Tertiary Brooke R HallDOB: [facility]IP Practices Insurance:[employer] [id number] [address] Number: [address] [id number] [place], [place] Date:2014-10-07Tel: [phone] [phone] () Name:[facility] Belen [id number] [place] [address]RR: 10/21/2018 Tertiary Brooke Bello HallDOB: [place] Practices Insurance:[employer] [id number] [address] Number: [address] [id number] [place], [place] Date: [address]Rgo: [phone] [phone] () Name:[facility] [place] [address], [place] [address]PJ: 09/16/2018 BROOKE [id number] Primary MISAEL L Justyn [address] [facility] [address] [id number] [address]Ugx: (724) Number: Repository [phone] () [id number] Date:[id number] [address]PE: 09/16/2018 Secondary NOT GIVENUNK Thompson Insurance:SELF PAY [facility] Number: Effective Repository Date:2018-09-12 09/16/2018 BROOKE Bello [id number] Primary MISAEL L Thompson [address] Insurance[facility] [address] [id number] [address]Ukp: (724) Number: Repository [phone] () [id number] Date:6153-12-25N[address] [address]HK: 09/16/2018 Secondary NOT GIVENUNK Thompson Insurance:SELF PAY [facility] Number: Effective Repository Date:2018-09-16 08/26/2018 Brooke Bello [id number] Primary MISAEL L Thompson [address] Insurance[facility] [id number] [id number] Hospital [address]Vsq: (724) Number: Repository [phone] () [id number] Date:2189-75-31[address], [place] [address]AK: 08/26/2018 Secondary NOT GIVENUNK Justyn Insurance:SELF PAY [facility] Number: Effective Repository Date:2018-08-26 SOCIAL HISTORY SOCIAL HISTORY No Social History Records FoundFAMILY HISTORY FAMILY HISTORY No Family History Records FoundPREGNANCY No Status Records FoundADVANCE DIRECTIVES ADVANCE DIRECTIVES No Advanced Directives Records FoundINFORMATION SOURCE INFORMATION SOURCE DATE CREATED AUTHOR AUTHOR'S ORGANIZATION 10/29/2018 [facility]
== END ==
PROVIDERS: Family Provider Nurse Practitioner; PCP Nurse Practitioner; Referring Provider Nurse Practitioner; Visit Provider Nurse Practitioner
DX: Z87.09 Personal history of other diseases of the respiratory system (principal)
CPT/HCPCS: 94060

== ENCOUNTER 2023-04-15 08:00 | Outpatient (RCR) | payer BC, SELFPAY ==
--- NOTE | 2023-04-15 09:00 | BH.SGPN.GN ---
Behaviors/Verbalizations/Mental Status: []Pt alert and oriented, neatly dressed and groomed. Eye contact good. Motor activity appropriate. Speech tangential. Affect congruent, mood nervous and hopeful. Thoughts linear, logical, no signs of hallucinations or delusions. Reviewed pt?s symptom tracker, no risk for suicidal ideation, plan, or intent as 04/15/23 Client Response/Progress/Benefit: []Pt responded well to session, attentive and engaged. Pt reports feeling anxious this morning as it is pt's first day of IOP tx. Pt shared he hopes that completing the program will help pt manage his anger and not let things get to me so much. Pt shared he has a hard time keeping jobs because of his anger and mood instability. Pt also struggles with making connections at work. Pt did well connecting with peers and he was receptive to group support and encouragement. Pt appeared to benefit from connecting with peers. Pt will continue IOP tx to prevent decompensation, increase distress tolerance skills, and improve daily functioning. Narrative Note: []
--- NOTE | 2023-04-15 10:15 | BH.SGPN.GN ---
Behaviors/Verbalizations/Mental Status: [] Eye contact is good. Motor activity is appropriate. Appearance is casual. Speech is Appropriate. Mood is anxious. Affect is congruent. Thoughts are linear and logical. No evidence of psychosis. Client Response/Progress/Benefit: [] Limited participation in group discussions however did complete worksheets on the topic. Attentive during psychoeducation. Attentive during interactive discussion on types of support. Group identified several forms of support which included; friends, family, therapy, professionals, support groups, co-workers, social media, spirituality, medications, local agencies, etc. Pt Attentive during the group discussion on the importance of support which they identified leads to; accountability, can motivate, decreased loneliness, connection with others, improved relationships, increased self-confidence, can lessen one's stress and responsibilities, and is fun/ distracting. Patient identified the obstacles/barriers to seeking support and utilizing the support they currently have in place which included anxiety, low self-esteem, stress, and agitation. Benefited from increased awareness of healthy supports and the importance of balanced support. Will continue in IOP to prevent decompensation, stabilize mood, and improve functioning to return to work. Narrative Note: []
--- NOTE | 2023-04-15 11:15 | BH.SGPN.GN ---
Behaviors/Verbalizations/Mental Status: []Client alert and oriented, casually dressed and groomed. Eye contact good. Motor activity appropriate. Speech within normal limits. Affect congruent, mood depressed and anxious. Thoughts linear, logical, no signs of hallucinations or delusions. Client Response/Progress/Benefit: [] Client was an active participant throughout AEB contributing to group discussion, participating in the activity, and taking notes. Client provided input during discussion on the types of support our supports can provide (social, emotional, tangible, and informational). Able to identify the types of support pt?s own support system provides for them. Client reported gaining awareness that they could benefit from more social specific support. Shared this will help to provide him with a larger support system as well as aid in boosting his self-esteem. Client identified steps to achieve this as find and join a club with a group of people who have common interests, as well as continue with volunteering at the local animal long[facility]. Client seemed to benefit from identifying support areas client could benefit from improving. Recommended to continue IOP tx to increase healthy coping repertoire, promote mood stability, and improve overall functioning. Narrative Note: []
--- NOTE | 2023-04-15 14:35 | BH.COMM_ITS ---
Communication Note Communication with Client Communication Note: Met with pt to complete initial paperwork. Reports no changes since intake assessment. Completed [place] Suicide screening which indicates low risk. Does not present as imminent danger due to no hx of or report of present SI. Pt contracts for safety, future-oriented, protective factors, and no hx of attempts. Consulted with Dr. Gilliland with plan to admit to IOP level of care with dx F33.1
--- NOTE | 2023-04-16 09:00 | BH.SGPN.GN ---
Behaviors/Verbalizations/Mental Status: [] Eye contact is good. Motor activity is appropriate. Appearance is casual. Speech is Appropriate. Mood is anxious. Affect is congruent. Thoughts are linear and logical. No evidence of psychosis. Reviewed daily check in sheet and no reports of suicidal ideations or intent. Client Response/Progress/Benefit: [] Pt was an active participant in group discussion. Attentive. Daily symptom tracker notes 3/5 for depression and 3/5 for anxiety. Shared anxiety and stress related to starting a new job this afternoon. Elaborate on past struggles with maintain employment due to his mental health, however able to reframe and identify benefits of working and new job. Emotion for today is stressed. He did not elaborate further. This is only his second day in IOP so limited progress noted. Benefited from group support, encouragement, and feedback. Will continue IOP to prevent decompensation, increase healthy coping, and improve functioning. Narrative Note: []
--- NOTE | 2023-04-16 10:15 | BH.SGPN.GN ---
Behaviors/Verbalizations/Mental Status: [] Client alert and oriented, casually dressed and groomed. Eye contact fair. Motor activity appropriate. Speech within normal limits. Affect congruent, mood euthymic. Thoughts linear, logical, no signs of hallucinations or delusions. Client Response/Progress/Benefit: [ ] Client active participant in group discussions. Attentive during psychoeducation on 4 types of conflict styles (Competing, Collaborating, Avoiding, and Accommodating). Worked with group to define conflict and identify how conflict is helpful. With peers identified barriers to addressing or managing conflict which included: not wanting to hurt others, lack of communication skills, and cognitive distortions. Client reported he tends to use avoiding and competing conflict styles. Client reported he will hold a lot back until he eventually explodes. Reported this negatively impacts his marriage. Benefited from group due to increase insight and awareness of benefits to conflict, conflict styles, and obstacles to managing conflict. Will continue in IOP to improve distress tolerance, increase healthy coping, and prevent decompensation.
--- NOTE | 2023-04-16 11:15 | BH.SGPN.GN ---
Behaviors/Verbalizations/Mental Status: []Pt alert and oriented, neatly dressed and groomed. Eye contact good. Motor activity appropriate. Speech within normal limits. Affect congruent, mood euthymic. Thoughts linear, logical, no signs of hallucinations or delusions. Client Response/Progress/Benefit: [] Pt engaged in session AEB contributing to discussion and engaging in activity. Attentive during discussion on strategies for more effectively managing conflict in personal life. Pt participated in activity and did well to be assertive and collaborating in small group. Pt given handout on fair fighting rules. Pt indicated that pt is going to work on expressing his feelings with words instead of ?stuffing? or lashing out. Appeared to benefit from gaining strategies to help Pt better manage conflict. Will continue IOP tx to prevent decompensation, improve daily functioning, and increase healthy coping skills. Narrative Note: []
--- NOTE | 2023-04-17 09:40 | BH.NA ---
Physical Data Vital Signs Pulse Rate: 72 Blood Pressure: 134/81 Height/Weight Height: 1.85 m Weight:: 77.111 kg Weight in Pounds: 170.0 lbs Current Medication Compliance Medication Compliance Do you take your medication as prescribed?: Yes Nutritional History Appetite Nutritional Instructions: Describe your appetite:: Good Additional nutritional information:: Client denies recent change in appetite or weight loss or gain. Functional Assessment Sleep Pattern Describe any problems with sleeping: Client states he sleeps about 7-8 hours per day. Activities Motor Activity:: Functional Sensory/Communication Assess Vision Problems Do you have any vision problems?: Glasses Communication Problems Do you have difficulty understanding what people are saying?: No Medical Problems/History Respiratory Conditions Respiratory: Other (See comments) (history of a lung infection and partial lung removal) Pain Assessment Do you have acute or chronic pain?: No Surgical History Surgical History Have you had any surgeries? If so, list type and date:: Yes (2014- partial lung removal) Substance Abuse Substance Abuse Please describe substance abuse in the last 30 days:: Client denies alcohol, tobacco or substance use. Client states he occasionally drinks coffee but not on a daily basis. Mental Status Summary Mental Status Significant Findings/Observations on Appearance and Mood:: Client is alert and oriented x 4. Client is casually groomed and cooperative with assessment. Client makes good eye contact. Client's voice has normal rate and volume. Speech is very mildly dysarthric. Client has constricted affect. Client makes logical associations and has normal processing. Client denies delusions/hallucinations. Client denies SI. Suicide Assessment Suicidal Ideation Are you currently or have you been suicidal in the past?: No Suicidal Intentional Rating Scale (SIRS): Suicidal thoughts (past) Physician Notification Past Psychiatric History MH Treatment Hx Past Psychiatric Medications:: only Seroquel that he has been on since 2020 Age of first mental health symptoms: Client has been on medication for mental health since 2020. Current providers for mental health treatment (counselor, psychiatrist, pillowcase cleaner, etc.): [facility], does not have psychiatrist Fall Risk Assessment Age Age: Less than 60 Mental Status Mental Status: Willing & able to ask for assistance when needed Physical Status Physical Status: No problems Impairments Impairments: None Elimination Elimination: Continent AND independent Gait or Balance Gait or Balance: Walks independently Hx of Falls History of falls in the past 6 months: No known history Medications/Substances Psychotropics:: Antipsychotics Medications/substances used within the past 24 hours or ordered to administer: 1-2 of the medications/substances listed above Total Score Total Points:: 1 RN Summary of Impressions Impressions Recommendations Impressions: Psychiatric Issues: 1. Major depressive disorder, recurrent, mild. 2. Generalized anxiety disorder. 3. Rule out cluster B traits Level of Care How do the client's current symptoms and functional deficits support need for this level of care?: Client was referred to IOP by his for depression and anger. Client states he has been fired from several jobs over the last few years and was recently laid off from a job. Client reports financial concerns due to this. Client also reports frequent irritability, low self esteem, and decreased motivation. Client states I've been feeling so depressed, and I just want to be more happy. Client denies SI. IOP will promote gains and prevent further compensation while providing social support and skills training.
[2023-04-17 09:56] VITALS: BP 134/81; PULSE 72
--- NOTE | 2023-04-17 11:10 | BH.SGPN.GN ---
Behaviors/Verbalizations/Mental Status: [] Eye contact is good. Motor activity is appropriate. Appearance is casual. Speech is Appropriate. Mood is anxious. Affect is congruent. Thoughts are linear and logical. No evidence of psychosis. Client Response/Progress/Benefit: [] Pt was an active participant in group discussions and experiential activity. Attentive during psychoeducation. Patient participated during interactive discussion on strategies to overcome several obstacles to mental wellness including People-pleasing, Low Self-esteem, unhealthy coping skills, isolation, loneliness, and negative thinking. Pt choose the barrier of financial struggles to work on this week and identified strategies to incorporate including create budget, being mindful, working on spending money on needs vs wants. Benefited from increased awareness of obstacles to mental wellness and strategies to help overcome those obstacles. Will continue in IOP to prevent decompensation, stabilize mood, and increae healthy skills to maintain jobs. Narrative Note: []
--- NOTE | 2023-04-17 12:37 | BH.PSY.EVA_ITS ---
Psychiatric Evaluation Initial Evaluation Initial Evaluation: History of Present Illness: [] The patient is a 37-year-old male with a history of depression, anxiety and anger issues who was referred by his who completed our prior IOP program in 2019. He currently lives with his and has somewhat limited primary support. The patient has been let go from 5 different jobs in the past 8 years. He says a few ended because the contract ended and it was expected but many have ended for what he considers to be unknown reasons. He states that he has been told a number of times that he is just not a good fit for the job. 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 Most of his jobs have all been in accounting as he has a masters degree in accounting. The patient is having a hard time functioning due to low self-esteem from losing all these jobs. He states that he has trouble managing criticism and about once or twice a week at home he gets very angry very quickly especially at his if she criticizes him at all. The patient states that he has never become angry at work. He has never been violent. At one job the patient felt the [place] like him and tried to get him fired but he denies any paranoia. He has financial stress to now due to the fact that he is not working. He states that he has low self-esteem due to being bullied his whole life at school. He is also under some stress now and grief because his autistic 31-year-old [id number] who is very close to was diagnosed with metastatic cancer several weeks ago and has a poor prognosis. Patient endorses sadness off-and-on, worthlessness,. The p atient denies hopelessness and guilt. His sleep is good at 7 hours a night and his appetite and weight are stable. Concentration is normal. He is a worrier by nature and ruminates negatively at times. He is not having outright panic attacks but feels very anxious most of the time especially when stressed. He denies passive thoughts of , suicidal ideation, plan for suicide, homicidal ideation, hallucinations, delusions, symptoms of mandi ever, OCD, eating disorder, trauma or PTSD. He also denies seizure or head trauma. In 2014 he had to have two thirds of his right lung removed due to an infection and sometimes if he exercises he gets short of breath but he does not feel this is related to his current issues. Current Psychiatric Medications: [] Seroquel possibly 25 mg and the patient takes 3 tablets or possibly 75 mg p.o. nightly. He has been on this for 2 years and has had helped his anger outburst somewhat but has not eliminated them. Past Psychiatric History: [] No psych admits ever. No suicide attempts ever. The patient has a clinical psychologist licensed and a counselor at [facility] and he has seen them 1 counselor for over a year once or twice a month but now has a new counselor. He found his past counseling helpful. He was first depressed in high school and was bullied a lot in grade school, middle school and high school. He first took his first psych medications which was Seroquel 2 years ago and has never taken any other psych meds. He first had counseling at age 34 for anger issues but states that he has had anger issues since childhood. Substance Use History: [] Non-smoker. No vaping. No marijuana. Rare alcohol use once a year. No other drug use. Allergies: [] No known allergies Medications: [] Psych meds as dictated above plus vitamin D Past Medical History: [] Negative except for lung surgery after an infection in 2015 where two thirds of his right lung was removed. No other surgeries and no medical illnesses. Normal sexual function and heterosexual. Family Psychiatric History: [] Mother is 63 years old and father is 66 years old. No psychiatric issues in the family. No suicides in the family. No substance issues in the family. Personal/Social History: [] The patient was born and raised in [facility] and moved to [place] at age 10. He moved back to [place] in 2014 to be with his girlfriend who became later his . His parents were and are and they have always been loving to him. He describes his childhood as good. He denies any physical, verbal or sexual abuse. He is youngest child and has a twin sister and he has a brother 3 years older. He is close with both of his siblings but the sister lives in [place] and the brother lives in [place]. School was okay but he was bullied in school all the way through and he is not sure why and states that maybe it was for the way looked or spoke. He was never in any special classes but the patient states that he did struggle in school and did need tutoring past. His sister did not get bullied. He graduated high school and got a masters degree in accounting from [email or web address] and then online at [employer]. 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 See present illness for this. He got at age 32 and he knew his 13 years total. No other serious girlfriends. No abuse in the marriage and marriage is okay and he states they have work through issues. They have no children as his has lots of health issues but they may adopt in the future. Legal History: [] No arrests. Has shuttle truck driver's license. No DUIs. Review of Systems: [] Review of systems is negative except as noted in present illness. Vital Signs: [] Vital signs are reviewed in the nurses notes and in the records and updated and the patient is deemed medically able to participate in the IOP program. Mental Status Examination: [] The patient is a 37-year-old male who appears normal for stated age and is seen wearing glasses. He is ambulatory with a normal gait and is has no psychomotor agitation or retardation. Eye contact is good and speech is normal rate and rhythm and fluent. Speech is very mildly dysarthric. Mood is anxious and mildly depressed. Affect is constricted. Thought process is goal-directed and organized. Thought content: The patient wants help to manage his anger issues and inability to hold jobs. There is no evidence of passive thoughts of , plan for suicide, suicidal ideation, homicidal ideation, hallucinations, delusions or symptoms of mandi ever. Reality testing is intact. Intelligence is average. Judgment is intact. Insight: Some present but limited. Diagnoses: [] 1. Major depressive disorder, recurrent, mild 2. Generalized anxiety disorder 3. Rule out cluster B traits 4. Primary support, work and financial issues Plan: [] The patient will start the IOP program at [facility] in behavioral health as the structure, support, education and group therapy will hopefully prevent worsening of the patient's symptoms. He felt safe during the interview and if it anytime he does not feel safe he will let us know or go to the emergency room. The risk, options, possible complications and side effects of the medications were discussed with the patient and he understands and accepts these. He will continue Seroquel at the current dose. He agrees to try to start Lexapro 5 mg p.o. daily. prescription is sent in for this. He will continue to follow-up with his outpatient providers and I will see the patient in follow-up in 1 to 2 weeks.
--- NOTE | 2023-04-17 12:48 | BH.DR.ITP ---
Initial Treatment Plan Patient Information Visit Information: ADMISSION DATE: EXPECTED LOS: 4-6 weeks Problems/Symptoms Problem #1:: Mood instability Symptom:: Sadness, anger issues, worthlessness, low self-esteem Problem #2:: Anxiety Symptom:: Worry, rumination
--- NOTE | 2023-04-18 10:10 | BH.SGPN.GN ---
Behaviors/Verbalizations/Mental Status: [] Eye contact is good. Motor activity is appropriate. Appearance is casual. Speech is Appropriate. Mood is euthymic. Affect is congruent. Thoughts are linear and logical. No evidence of psychosis. Client Response/Progress/Benefit: []Pt engaged participant AEB listening to others, engaging in activity, and providing feedback at times. Attentive during psychoeducation and provided insight into obstacles in the way of mental wellness. Pt shared with group current mental health reality and desired mental health reality. Stated using resources as one step he is currently making to get closer to desired reality. Identified barriers to desired reality include: financial problems, low self-esteem, and no self-care. Benefited from taking look at current mental health state and obstacles for progress. Pt to continue IOP to increase healthy coping, challenge negative/distorted thoughts, and prevent decompensation.
--- NOTE | 2023-04-22 09:00 | BH.COMM ---
Communication Note Communication with Client Communication Note: cancelled IOP today
--- NOTE | 2023-04-23 09:00 | BH.COMM ---
Communication Note Communication with Client Communication Note: Pt cancelled IOP today
--- NOTE | 2023-04-25 10:10 | BH.SGPN.GN ---
Behaviors/Verbalizations/Mental Status: [] Eye contact is good. Motor activity is appropriate. Appearance is casual. Speech is Appropriate. Mood is anxious. Affect is congruent. Thoughts are linear and logical. No evidence of psychosis. Client Response/Progress/Benefit: [] Pt was an active participant in group discussion. Attentive during psychoeducation and participated during interactive discussion in which members identified characteristics of individuals with a Fixed Mindset. Characteristics included; avoids challenges, fear of failure, defensive, avoids criticisms, give up easily, and fear of trying new things. Participated and engaged in experiential group activity in which therapist assigned a task to the group that seemed impossible causing fixed mindset responses. Through group interactions and therapist assistance pt was able to determine task was possible. Able to see connection between activity and Fixed vs Growth mindset. Benefited from increased awareness of fixed mindset and how this can impact mental health. Will continue in IOP to prevent decompensation, increase healthy coping, and improve functioning. Narrative Note: []
--- NOTE | 2023-04-25 11:09 | BH.PSA ---
Source of Information Presenting Problems/Circumstances Problems, Referral Source, Mental Status, Client: Pt was referred by family due to increased anxiety, depression, and anger which was resulting in decreased ability to function at baseline. Due to mental health pt has been unable to maintain consistent employment and reports increased conflict in marriage. Linked with mental health counseling and medications with limited benefit. Psychiatric Presentation Psych Issues & Need for Admission Psychiatric Issues:: Depression, anxiety, anger mgmt issues Past Psychiatric History MH Treatment Hx Treatment History: Currently linked with individual counselor at [facility]. First started counseling 3 years ago. First hospitalization:: denies Most recent hospitalization:: n/a Medication Trials:: No ECT Therapy:: No Age of first mental health symptoms: Pt reports ongoing struggles with anxiety, depression, and anxiety since high school (hx of bullying) Describe (age, circumstance, etc) any past hospitalizations: n/a Current providers for mental health treatment (counselor, psychiatrist, case assistant, etc.): En- Counselor @ [facility] Lluvia Silva CNP at [facility]. Development & Family of Origin Childhood Significant Childhood Events: Hx of bullying from middle school through high school. Family Who currently lives in your home?: Lives with his Describe family composition:: Parents are still alive and they have a positive relationship. He has two older siblings both of which live out of state. Family History Family Hx of Psychiatric or AOD Problems: none reported. Ethnicity Culture Do you identify yourself with any particular cultural, ethnic background, or community?: No Sexuality Sexual Orientation: Heterosexual Spirituality Bahai Do you currently identify with any organized yarsani?: None Mental Status Memory Recent Memory: Good Remote Memory: Good Eye Contact Eye Contact: Fair Speech Speech: Articulate Thought Process Thought Process: Ruminations Insight: Poor Judgment: Poor Behavior: Anxious Orientation Orientation: Time, Person, Place and Situation Appearance Appearance: Appropriate Mood Mood: Anxious Affect Affect: Constricted Suicide Assessment Suicidal Ideation Have you ever felt like hurting yourself?: No Physician Notification Violent Behavior/Abuse History Homicidal Ideation Do you have any homicidal thoughts? If so, explain:: No Abuse Have you ever been abused?: No Life Events Are there any other significant life events?: Financial loss and Hardships Describe significant life events: According to pt his current house is in need of significant repairs (roof and plumbing) which until they get addressed their home insurance company is refusing to cover them. Unable to maintain employment. has numerous medical issues. Pt also reported infidelities' on his 's part. Safety Do you ever feel threatened in your home? If yes, describe:: No Adult Social History Age 20 to Present Describe your current support system:: Pt's parents and his are primary support. Substance Use Substance Substance Use Type: Alcohol (1-2 x yearly) Leisure/Social Activities Interests What do you enjoy or might be interested in learning about?: Pt verbalized interest in learning more effective ways to communicate, anger mgmt skills, and anxiety reduction skills. 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 Have you ever been in the ?: No Legal History Records Have you had any past legal charges?: No Court Orders Have you had any past court orders for psychiatric treatment?: No Problem Checklist Current Problem Areas Problem List: Depressed mood/sad, Anxiety and Anger/aggression Discharge Planning Needs Anticipated Follow-Up Mental Health Center (Name/Phone Number):: [facility] Private Therapist/Psychiatrist:: Gertrudis LÓPEZ Primary Care Physician: Debra Thomas Release of Information Signed:: Yes Paper Steamer's Assessment Client's Needs What are the client's feelings about the program?: I'm excited What are the client's goals?: His goals for treatment include anger mgmt, reducing depression/anxiety, and improving honest communication. He shared that he is a compulsive liar and lies for no reason. States that his anger goes from zero to a hundred and often takes it our on others What are the client's strengths?: intelligent, kind, and motivated to change. Diagnoses Diagnoses Diagnosis #1:: Major depressive disorder, recurrent, mild Diagnosis #2:: Generalized Anxiety Disorder Interpretive Summary Interpretive Summary Interpretive Summary: Pt is a 37 y/o male with MDD and JULIET. Referred to [facility] by family due to worsening depression, anxiety, and anger outburst which are impacting functioning. According to pt he has been fired from 5 different jobs in the past 8 years. Most recently was let go from a job 3 weeks ago. Pt has a Master's Degree in Accounting however is has struggled to maintain consistent employment due to mental health struggles. Poor self-esteem due with hx of bullying. Increased anxiety and conflict with . Financial stressors. Weekly panic attacks. Denies active suicidal ideations, plan, or intent. No hx of attempts. Denies substance abuse. Denies HI or psychosis. Treatment Plan Recommendations Recommendations Guidelines Recommendations:: Due to mental health symptoms impacting functioning and limited benefit from traditional outpatient (counseling and medications) recommended IOP level of care.
--- NOTE | 2023-04-25 11:10 | BH.MDN_ITS ---
Multi-Disciplinary Note Note 45-min Individual: Time Started:: 09:10 Date: 04/25/23 Purpose of session/treatment goals addressed:: Met with patient to review current symptoms, progress in IOP, and to begin to identify treatment plan goals. Eye Contact:: Good Motor Activity:: Appropriate Appearance:: Casual Speech:: Appropriate Mood:: Anxious and Depressed Affect:: Congruent Thoughts:: Linear, Logical and No evidence of hallucinations/delusions noted Staff Interventions:: psychoeducation on: (anger mgmt strategies, ), rapport building, treatment planning and goal setting Client Response:: Pt presents today reporting significant stress, de pression, and anxiety. He cancelled IOP for the past 2 days due to home and car repairs which are causing increased stress. His goals for treatment include anger mgmt, reducing depression/anxiety, and improving honest communication. He shared that he is a compulsive liar and lies for no reason. States that his anger goes from zero to a hundred and often takes it our on others. No hx of violence. Mainly yells. For his depression he reports being sad, having no energy, having no motivation, feeling like a failure, and just being constantly overwhelmed. Limited coping skills reported. His anger, poor communication, depression, and anxiety are impacting his relationship with support () as well as his overall functioning (has struggles to maintain employment). Risks/Concerns:: Denies active suicidal ideations, plan, or intent. No imminent concerns notes. Progress Toward Goals/Plan:: Limited progress and inconsistent attendance due in large part to acute stressors (home/ car repairs). Medication compliant. When pt is present he is engaged in treatment. We discussed treatment plan and decided to start with his anger as this is reported to be a primary concern. Responded well to anger mgmt education (proactive vs reactive skills, anger continuum, anger button, and physiological warning signs). We worked through identifying physiological signs and pt was given a worksheet to read and complete. Will continue in IOP to prevent decompensation, improve functioning, and increase healthy coping skills. Time Stopped:: 09:55
--- NOTE | 2023-04-25 11:10 | BH.SGPN.GN ---
Behaviors/Verbalizations/Mental Status: []Pt alert and oriented, casually dressed and groomed. Eye contact fair. Motor activity appropriate. Speech within normal limits. Affect congruent, mood anxious. Thoughts linear, logical, no signs of hallucinations or delusions. Client Response/Progress/Benefit: []Pt was an active participant during activity and discussion AEB providing some input, connecting with peers, as well as taking notes throughout. Pt did well to engage as group worked on identifying characteristics and benefits of adopting a growth mindset. Worked with fellow participants in reframing the example fixed thoughts into growth mindset thoughts. Reframed personal fixed thought of ?I can't change? with growth mindset thought of accepting challenges can help me grow. Benefitted from discussing benefits of growth mindset and brainstorming strategies for prompting growth-mindset. Pt appeared to benefit from working in small groups to challenge own thoughts and help peers. Pt will continue IOP tx to increase healthy coping, improve mood regulation, and further prevent decompensation.
--- NOTE | 2023-04-25 11:10 | BH.MTP ---
Master Treatment Plan Patient Information Program Physician:: Amelia Muse Primary Therapist:: Josue Villarreal Psychiatric Diagnoses Psychiatric Diagnoses:: 1. Major depressive disorder, recurrent, mild 2. Generalized anxiety disorder 3. Rule out cluster B traits Diagnosis Code(s):: F 33.0 Estimated LOS Estimated LOS (in weeks):: 6 Problem/Goal #1 Problem/Goal #1 Stated Goal:: Client will increase mood stability and anger management skills while decreasing depressive symptoms AEB self-report and improved scores on depression and anger domains on the DSM-5 outcome scales. Description of Barriers: Limited coping skills, relationship difficulties/conflict, poor treatment compliance, numerous psychosocial stressors (house, employment, finances) Functional Impact: Mood instability and anger impacts marriage, self-esteem, motivation, and communication. Has been unable to maintain employment due in large part to mood instability. Goal Relevant Strengths/Supports: intelligent, appears motivated to make changes. Parents are primary support. Objectives Objective #1: Stated Objective: Client will identify 5 physical warning signs, 2-3 anger triggers, and 5 ways to calm and manage anger. Pt will develop an anger scale indicating degrees of anger from 0-10 and physiological signals of his level of anger. Plan is become aware of escalating anger and implement skill early to avoid escalation. Interventions: Through individual and group counseling will education the client on calming techniques as part of a tailored strategy for reducing chronic and acute physiological tension that accompanies the escalation of his/her angry feelings. Discharge Criteria: Able to identify 5 physiological warning signs, 2-3 anger buttons, and 5 ways to calm. Target Date: 05/29/23 Review Date: 05/08/23 Objective #2: Stated Objective: Client will learn and utilize 2-3 healthy coping strategies to better manage depressive and mood symptoms as shown by reduced DSM-5 scores. Interventions: Through group and individual sessions, will help client identify triggers and warning signs of depression and emotional dysregulation including emotional, physical, and behavioral changes. Will education client on CBT techniques and and coping strategies to decreased intensity of depression and mood instability. Discharge Criteria: Will be able to identify 2-3 healthy coping strategies and consistently apply these skills. Target Date: 05/29/23 Review Date: 05/08/23 Problem/Goal #2 Problem/Goal #2 Stated Goal:: Client will reduce overall frequency, intensity, and duration of anxiety to improve functioning AEB self report and reduction of scores on the anxiety domain of the DSM-5 outcomes. Description of Barriers: Limited coping skills, relationship difficulties/conflict, poor treatment compliance, numerous psychosocial stressors (house, employment, finances) Functional Impact: Anxiety significantly impacts communication, relationship, and employment. Reports excessive ruminations and worry. Goal Relevant Strengths/Supports: intelligent, appears motivated to make changes. Parents are primary support. Objectives Objective #1: Stated Objective: Pt will develop an anxiety management plan which include in the moment calming skills, physiological warning signs, anxiety-producing thoughts which exacerbate the anxiety, internal coping strategies (reframing, challenging, acceptance, etc.), external coping skills (support, distraction, etc.), and helpful affirmations. Interventions: Through individual and group counseling will provide psychoeducation on calming, internal, and external coping skills. Will assist client in exploring what triggers anxiety and teach client coping strategies to effectively manage anxiety symptoms Discharge Criteria: Develop anxiety management plan. Target Date: 05/29/23 Review Date: 05/08/23
--- NOTE | 2023-04-29 09:00 | BH.SGPN.GN ---
Behaviors/Verbalizations/Mental Status: []Pt alert and oriented, casually dressed and groomed. Eye contact good. Motor activity restless. Speech within normal limits. Affect congruent, mood euthymic. Thoughts linear, logical, no signs of hallucinations or delusions. Reviewed pt?s symptom tracker, no reported suicidal ideation, denies plan, or active intent. Client Response/Progress/Benefit: [] Pt responded well to session, open to contributing with group and engaged. Per symptom tracker pt reports a 2/5 for depression and 3/5 for anxiety. Patient reported stressor was having to manage being put into a different position at work that he has not been fully trained in and was feeling overwhelmed because they were short staffed. Patient stated on a positive note he was able to manage his emotions in the moment despite having customers to be rude to him because there orders were taking a long time. Identified additional mental positive as being able to go to numerous stores and cooked a meal at home. Stated additional positive as his 's car breaking down last week and did not have enough money to fix it. Seemed to benefit from support from peers. Pt will continue IOP tx to increase healthy coping, challenge distorted thoughts, and prevent decompensation.
--- NOTE | 2023-04-29 10:10 | BH.SGPN.GN ---
Behaviors/Verbalizations/Mental Status: [] Eye contact is good. Motor activity is appropriate. Appearance is casual. Speech is Appropriate. Mood is anxious. Affect is congruent. Thoughts are linear and logical. No evidence of psychosis. Client Response/Progress/Benefit: [] Pt was an active participant in group discussion. Attentive during psychoeducation on SMART goals. Participated in experiential activity. Engaged during interactive discussion on the benefits of setting goals which group identified as; increase self-worth, increase confidence, can motivate us, can lead to personal growth, and can give one a sense of purpose. Participated during interactive discussion on possible obstacles to obtaining goals which involved; little patience, low motivation, feeling burned out, setting unrealistic goals, limited time, stressors, other responsibilities, negative self-talk, doubt, cognitive distortions, lack of resources, and lack of focus. Benefited from increased understanding of benefits of goals, obstacles to obtaining goals, and methods for setting appropriate goals (SMART goals). Will continue in IOP to prevent decompensation, increase healthy coping, and to stabize mood. Narrative Note: []
--- NOTE | 2023-04-29 11:15 | BH.SGPN.GN ---
Behaviors/Verbalizations/Mental Status: []Pt alert and oriented, casually dressed, appropriately groomed. Eye contact good. Motor activity appropriate. Speech within normal limits. Affect congruent, mood anxious and dysthymic. Thoughts linear, logical, no signs of hallucinations or delusions. Client Response/Progress/Benefit: []Pt was engaged during discussion and willing to complete the worksheet challenging them to develop a personal SMART goal. Pt chose the goal of saying 3 positives about himself evening over the next week. Pt stated this will benefit them by improving his mood, reduce negative thinking, improve hopefulness throughout the day. Pt identified barriers which included forgetting, negative self-talk, and low motivation. Identified for low motivation he will use opposite action, reach out to a support, or listen to a positive podcast/music. Pt receptive to identifying solutions for these barriers and willing to begin working on this goal. Benefited from this group by developing a short-term SMART goal related to mental health. Will continue IOP to increase self-care, improve identification and use of healthy skills, and prevent decompensation. Narrative Note: []
--- NOTE | 2023-04-30 09:00 | BH.SGPN.GN ---
Behaviors/Verbalizations/Mental Status: [] Pt alert and oriented, neatly dressed and groomed. Eye contact good. Motor activity appropriate. Speech within normal limits. Affect congruent, mood euthymic. Thoughts linear, logical, no signs of hallucinations or delusions. Reviewed pt?s symptom tracker, no risk for suicidal ideation, plan, or intent 04/30/23 Client Response/Progress/Benefit: []Pt responded well to session, attentive and engaged. Pt reports feeling calm this morning, but pt is not looking forward to going to work later today. Pt stated he is not enjoying his new job as pt feels he cannot be social and he does not like the environment. Pt's mental health wins today include cooking yesterday, accomplishing tasks at home, and enjoying time with family over the weekend. Pt has a lot of psychosocial stressors right now including finances, house issues, and family stress. Pt appeared to benefit from reflecting on his wins and connecting with peers. Pt will continue IOP tx to promote mood stability, increase distress tolerance skills, and improve daily functioning. Narrative Note: []
--- NOTE | 2023-04-30 11:10 | BH.SGPN.GN ---
Behaviors/Verbalizations/Mental Status: []Pt alert and oriented, casually dressed and groomed. Eye contact good. Motor activity appropriate. Speech within normal limits. Affect congruent, mood depressed and anxious. Thoughts linear, logical, no signs of hallucinations or delusions. Client Response/Progress/Benefit: []Pt responded well to session AEB contributing to discussion, taking notes, and listening attentively to others. Group discussed the benefits of managed anger and anger as a secondary emotion. Pt shared perspective on personal benefits of anger as emotional release. Pt completed worksheet on anger triggers and personal warning signs of anger. Pt identified their biggest triggers as running late, slow drivers, and rude customers at work. Appeared to benefit from increased knowledge of the anger cycle as well as personal triggers. Pt to continue IOP to promote healthy coping skill application, improve mood stability and anger management, and prevent decompensation. Narrative Note: []
--- NOTE | 2023-04-30 11:10 | BH.SGPN.GN ---
Behaviors/Verbalizations/Mental Status: []Client alert and oriented, casually dressed and groomed. Eye contact good. Motor activity appropriate. Speech within normal limits. Affect congruent, mood euthymic. Thoughts linear, logical, no signs of hallucinations or delusions. Client Response/Progress/Benefit: []Pt was attentive throughout AEB contributing at times to small group discussion and self-reflection. Group finished processing cues to anger worksheet. Pt worked on completing own anger cycle. Shared one of his anger cycles is being triggered by rude customers which results in him thinking It's just food, why can't they understand we are short staffed and go get food somewhere else. Pt stated emotionally he starts feeling anxious and frustrated which leads to behavioral response of being rude back. Pt attentive as group brainstormed healthy coping skills for better managing anger which included: music, walking/exercise, taking a break, grounding tools, reflection, and journaling. Pt worked in small groups to identify ways could interrupt his anger cycle. Pt appeared to benefit from identifying different techniques to manage anger as well as gaining awareness of potential consequences of unmanaged anger. Will continue IOP tx to challenge negative thinking, increase healthy coping skills, and prevent decompensation.
--- NOTE | 2023-05-02 11:10 | BH.SGPN.GN ---
Behaviors/Verbalizations/Mental Status: []Pt alert and oriented, casually dressed and groomed. Eye contact fair. Motor activity appropriate. Speech within normal limits. Affect congruent. Mood euthymic. Thoughts linear, logical, no signs of hallucinations or delusions. Client Response/Progress/Benefit: []Pt was an active participant AEB contribution to discussion, taking notes, and willingness to engage in group activity. Connected with the topic of pitfalls and listened to group discussion on internal and external barriers that prevent from choosing a healthier path to mental wellness. Group worked together to identify examples of internal pitfalls. Pt identified personal pitfalls to include: negative self-talk, self sabotage, anger, denial, boredom, and isolation. Pt benefited from group as Pt learned to better identify and normalize potential barriers to improving mental health symptoms. Pt to continue IOP to increase distress tolerance, decrease anger, and prevent decompensation.
--- NOTE | 2023-05-02 12:00 | BH.MDN ---
Multi-Disciplinary Note Note 30-min Individual: Time Started:: 10:30 Date: 05/03/23 Purpose of session/treatment goals addressed:: Reviewed current symptoms and progress in IOP. Reviewed anger mgmt strategies. Eye Contact:: Good Motor Activity:: Appropriate Appearance:: Casual Speech:: Appropriate Mood:: Anxious Affect:: Congruent Thoughts:: Linear, Logical and No evidence of hallucinations/delusions noted Staff Interventions:: psychoeducation on: (anger mgmt skills. ) and rapport building Client Response:: Pt reports progress stating no anger outbursts since starting IOP. Reports feeling more relaxed and having a new mindset. Decreased arguing. I'm able to identify warning signs to anger which is what we had discussed last session. Shared that he is aware of where is anger is at on the anger scale. If he identifies anger above 2 he implements calming skill (breathing, internal thought changing, distraction) which has been helpful. He was also able to identify his anger button and triggers which include other criticizing him or something that he did and others talking to him in a disrespectful tone. He reports that he also has not been lying as much as he has in the past. Reports he is a compulsive liear for no reason. We reviewed his current thoughts on why his lying has decreased. Risks/Concerns:: no risks or concerns noted. Progress Toward Goals/Plan:: Progress noted per pt report. Reports decreased anger and improved mood. Medication compliant and denies any concerns or side effects. Started and maintained employment for the past 3 weeks. Feels that IOP and psychoeducation have been helpful. Will continue in IOP to mainain gains and prevent decompensation. Time Stopped:: 11:00
--- NOTE | 2023-05-03 10:19 | BH.COMM ---
Communication Note Communication with Client Communication Note: Called this AM stating and left a message stating that his Lexapro is increasing irritability and anxiety. This contradicts what he discussed with this therapist yesterday reporting no medication concerns and improved mood. Attempted to call and get clarification on concerns. Discussed with program psychiatrist Dr. Gilliland who advised that if he feels this way he can stop the Lexapro and she will meet with him next week to discuss further. Message left with patient.
--- NOTE | 2023-05-06 09:25 | BH.COMM ---
Communication Note Communication with Client Communication Note: Called in to cancel IOP today due to illness.
== END 2023-05-06 23:59 ==
LOC: BHIOP 08:00
PROVIDERS: PCP Nurse Practitioner Family; Visit Provider Psychiatry & Neurology Psychiatry
DX: F33.0 Major depressive disorder, recurrent, mild (principal); F41.1 Generalized anxiety disorder
CPT/HCPCS: S9480; 90832; 90834; 90853